=== PATIENT | female | born 1950 | race Caucasian/White ===

== ENCOUNTER → 2016-07-13 | Outpatient (CLI) | payer MEDICARE, BC ==
[~2016-07-13] MED LIST: DENOSUMAB 60 MG/ML 1 ML SYRINGE SQ ONE
[2016-07-13 14:54] VITALS: BP 135/60; PULSE 94; RESP 16; TEMP 98.3
== END | disposition home or self-care (01) ==
LOC: PROCWHC3 13:59
PROVIDERS: ATTEND Internal Medicine Geriatric Medicine
DX: M81.0 Age-related osteoporosis without current pathological fracture (principal)
CPT/HCPCS: 96372; J0897

== ENCOUNTER → 2016-09-03 | Outpatient (CLI) | payer MEDICARE, BC ==
--- NOTE | 2016-09-04 08:05 | MM ---
Reason for exam: screening (asymptomatic). Last mammogram was performed 2 years ago. History: Patient is postmenopausal. Took estrogen for 1 year 8 months. Physical Findings: A clinical breast exam by your physician is recommended on an annual basis and results should be correlated with mammographic findings. MG 3D Screening Mammo W/Cad Bilateral CC and MLO view(s) were taken. Prior study comparison: August 20, 2014, bilateral MG screening mammo w CAD. July 26, 2013, bilateral digital screening mammo w/CAD. There are scattered fibroglandular densities. There is no discrete abnormality including area of concern. No significant changes when compared with prior studies. ASSESSMENT: Negative, BI-RAD 1 RECOMMENDATION: Routine screening mammogram of both breasts in 1 year.
== END | disposition home or self-care (01) ==
LOC: RADMAMWWP 10:59
PROVIDERS: ATTEND Obstetrics & Gynecology
DX: Z12.31 Encounter for screening mammogram for malignant neoplasm of breast (principal)
CPT/HCPCS: 77063; G0202

== ENCOUNTER → 2016-10-14 | Outpatient (CLI) | payer MEDICARE, BC ==
--- NOTE | 2016-10-14 17:25 | BD ---
EXAMINATION TYPE: MG DEXA axial skeleton. DATE OF EXAM: 10/14/2016 9:42 AM COMPARISON: NONE CLINICAL HISTORY: 66-year-old female disorder bone, postmenopausal screening Height: 5 FT Weight: 142 FRAX RISK QUESTIONS: Alcohol (3 or more units per day): NO Family History (Parent hip fracture): NO Glucocorticoids (More than 3mos): NO (Ex: prednisone, prednisolone, methylprednisolone, dexamethasone, and hydrocortisone). History of Fracture in Adulthood: NO Secondary Osteoporosis: 1. Type 1 Diabetes: NO 2. Hyperthyroidism: NO 3. Menopause before 45: YES 4. Malnutrition: NO 5. Chronic liver disease: NO Rheumatoid Arthritis: NO Current Tobacco Use: NO RISK FACTORS HISTORY OF: Family History of Osteoporosis: YES Active: YES Postmenopausal woman: AGE 37 MEDICATIONS: Thyroid Medications: YES Which medication: SYNTHROID How Lon YRS Additional Medications: OMEPRAZOLE, ANXIETY MEDS, SYTHROID Additional History: EXAM MEASUREMENTS: Bone mineral densitometry was performed using the [employer] System. Bone mineral density as measured about the Lumbar spine is: ----- L1-L4(G/cm2): 1.003 T Score Values are as follows: ----- L2: -2.6 ----- L3: -2.1 ----- L4: 0.0 ----- L1-L4: -1.5 (L2 and L3 averaged = 2.35) Bone mineral density has: Decreased -1.2% since study of: 2013 Bone mineral density about the R hip (g/cm2): 0.823 Bone mineral density about the L hip (g/cm2): 0.801 T Score values are as follows: -----R Neck: -1.5 -----L Neck: -1.7 -----R Total: -1.1 -----L Total: -1.1 Bone mineral density has: Increased 3.2% since study of: IMPRESSION: Osteopenia as indicated by T score values in the lumbar spine and both hips. There is slightly increased risk of fracture and the patient may be considered for treatment. Re-Screen 2-5 years. NOTE: T-SCORE=SD OF THE YOUNG ADULT MEAN.
== END ==
LOC: RADBDWWP 09:18
PROVIDERS: ATTEND Obstetrics & Gynecology
DX: M85.88 Other specified disorders of bone density and structure, other site (principal); M85.851 Other specified disorders of bone density and structure, right thigh; M85.852 Other specified disorders of bone density and structure, left thigh
CPT/HCPCS: 77080

== ENCOUNTER → 2017-01-11 | Outpatient (CLI) | payer MEDICARE, BC ==
[2017-01-11 11:46] VITALS: BP 130/67; PULSE 78; RESP 15; TEMP 99.1
== END | disposition home or self-care (01) ==
LOC: PROCWHC3 11:27
PROVIDERS: ATTEND Internal Medicine Geriatric Medicine
DX: M81.0 Age-related osteoporosis without current pathological fracture (principal)
CPT/HCPCS: 96372; J0897

== ENCOUNTER 2017-06-18 15:08 | Inpatient (IN) | payer MEDICARE, BC ==
[2017-06-18] MEDS ORDERED: IPRATROPIUM-ALBUTEROL 3 ML NEB INHALATION STA ×2 (16:23→17:59)
[2017-06-18] MEDS ORDERED: methylPREDNISolone SOD SUCCI 125 MG/2 ML VIAL IV STA (16:23)
--- NOTE | 2017-06-18 16:30 | ED ---
General Adult HPI <Antione Blount - Last Filed: 06/18/17 18:11> - General Source: patient, RN notes reviewed Mode of arrival: ambulatory Limitations: no limitations <Valerie Dalal - Last Filed: 06/18/17 18:15> - General Chief complaint: Upper Respiratory Infection Stated complaint: Asthma Time Seen by Provider: 06/18/17 16:17 - History of Present Illness Initial comments: 67-year-old female presents to the emergency department with chief complaint of cough and congestion. Patient suffers from asthma. She states she started to get sick on Wednesday. She has had fevers up to 101 at home. She states she went to Dr. Richard's office on Wednesday it was suspicious and chest x-ray for pneumonia and started her on azithromycin and prednisone. She states that she' s been taking this but she continued to have congestion shortness of breath. Patient states her fevers have continued to remain as well. She went to the office to follow today and she was referred here she states to be admitted. She states she still having the congestion and shortness of breath. Denies any nausea vomiting. She denies any chest pain.Patient denies any recent chest pain , back pain, abdominal pain, nausea vomiting, numbness or tingling, dysuria or hematuria, constipation or diarrhea, headaches or visual changes, or any other current symptoms. (Valerie Dalal) - Related Data Home Medications Medication Instructions Recorded Confirmed Budesonide-Formot 160-4.5 Mcg 2 puff INHALATION RT-BID 04/04/14 06/18/17 [Symbicort 160-4.5 Mcg Inhaler] Omeprazole 20 mg PO DAILY 04/04/14 06/18/17 Sertraline [Zoloft] 100 mg PO DAILY 04/04/14 06/18/17 Levothyroxine Sodium [Synthroid] 100 mcg PO DAILY 11/17/14 06/18/17 Albuterol Sulfate [Proair Hfa] 1 - 2 puff INHALATION RT-QID PRN 12/27/14 Azithromycin [Zithromax Z-pack] See Taper PO DAILY 06/18/17 06/18/17 Ipratropium-Albuterol Nebulize 3 ml INHALATION RT-TID 06/18/17 06/18/17 [Duoneb 0.5 mg-3 mg/3 ml Soln] predniSONE See Taper PO DAILY 06/18/17 06/18/17 Allergies Allergy/AdvReac Type Severity Reaction Status Date / Time ibuprofen AdvReac BLEEDING Verified 06/18/17 16:28 BLOOD THINNERS AdvReac BLEEDING Uncoded 06/18/17 15:22 Review of Systems ROS Other: All systems not noted in ROS Statement are negative. <Antione Blount - Last Filed: 06/18/17 18:11> ROS Other: All systems not noted in ROS Statement are negative. <Valerie Dalal - Last Filed: 06/18/17 18:15> ROS Statement: Those systems with pertinent positive or pertinent negative responses have been documented in the HPI. Past Medical History Past Medical History: Asthma, CVA/TIA, GERD/Reflux, GI Bleed, Musculoskeletal Disorder, Thyroid Disorder Additional Past Medical History / Comment(s): Hereditary hemorrhagic telangiectasia, Iron deficiency anemia, TIAs per MRIs, GI bleeds, restless leg syndrome History of Any Multi-Drug Resistant Organisms: None Reported Past Surgical History: Orthopedic Surgery Additional Past Surgical History / Comment(s): 11/26/15 acromioplasty excision distal clavical rotator cuff repair R shoulder. Other surgical HX: PH study esophageal impendance function test, bilateral cataract removals, EGD, bone spurs sg in feet/hands, coiling of the pulmonary AV malformation Past Anesthesia/Blood Transfusion Reactions: No Reported Reaction Past Psychological History: Anxiety Smoking Status: Former smoker Past Alcohol Use History: None Reported Past Drug Use History: None Reported - Past Family History Mother Additional Family Medical History / Comment(s): Mother is 92 yrs old. She has vision problem. Father Family Medical History: Coronary Artery Disease (CAD), Diabetes Mellitus Additional Family Medical History / Comment(s): Father at 66 yrs Sister(s) Family Medical History: Blood Disorder Additional Family Medical History / Comment(s): Hemorrhagic Telangiectasia <Valerie Dalal - Last Filed: 06/18/17 18:15> General Exam <Antione Blount - Last Filed: 06/18/17 18:11> Limitations: no limitations <Valerie Dalal - Last Filed: 06/18/17 18:15> - General Exam Comments Initial Comments: General: The patient is awake and alert, in no distress, and does not appear acutely ill. Eye: Pupils are equal, round and reactive to light, extra-ocular movements are intact; there is normal conjunctiva bilaterally. No signs of icterus. Ears, nose, mouth and throat: There are moist mucous membranes and no oral lesions. Neck: The neck is supple, there is no tenderness. Cardiovascular: There is a regular rate and rhythm. No murmur, rub or gallop is appreciated. Respiratory: Lungs are clear to auscultation, respirations are non-labored, breath sounds are equal. Mild expiratory wheeze, no stridor, rales, or rhonchi. Gastrointestinal: Soft, non-distended, non-tender abdomen without masses or organomegaly noted. There is no rebound or guarding present. No CVA tenderness. Bowel sounds are unremarkable. Back: There is no tenderness to palpation in the midline. There is no obvious deformity. No rashes noted. Musculoskeletal: Normal ROM, no tenderness, There is no pedal edema. There is no calf tenderness or swelling. Sensation intact. Pulses equal bilaterally 2+. Neurological: CN II-XII intact, There are no obvious motor or sensory deficits. Coordination appears grossly intact. Speech is normal. Skin: Skin is warm and dry and no rashes or lesions are noted. Psychiatric: Cooperative, appropriate mood & affect, normal judgment. (Valerie Dalal) Vital Signs 06/18/17 06/18/17 06/18/17 15:17 16:44 16:52 Temperature 98.4 F Pulse Rate 83 93 93 Respiratory 16 Rate Blood Pressure 142/74 O2 Sat by Pulse 96 Oximetry 06/18/17 18:09 Temperature Pulse Rate 92 Respiratory Rate Blood Pressure O2 Sat by Pulse Oximetry Medical Decision Making - Lab Data Result diagrams: 06/18/17 16:56 06/18/17 16:56 <Antione Blount - Last Filed: 06/18/17 18:11> - Lab Data Result diagrams: 06/18/17 16:56 06/18/17 16:56 <Valerie Dalal - Last Filed: 06/18/17 18:15> - Medical Decision Making Chest x-ray reviewed. Report and chart review. Patient reevaluated by myself, Dr. Blount. Patient does have some continued wheezing. Patient states she saw Dr. Curran today who recommended she come to the hospital for admission. States she has been on azithromycin for the past couple of days. Case was discussed in detail with Dr. Ruth, who will admit for Dr. Barlow. Patient does not meet sepsis criteria. (Antione Blount) 67-year-old female presents for cough and congestion with a history of asthma. She is currently been on prednisone and azithromycin out patiently. This and patient's lab work is been reviewed. This tenderness appear to be right lower lobe pneumonia and she's been on antibiotics for the past 2 days with no improvement. This tenderness is continuing to be a minimal wheeze. This time we will admit the patient with IV medication and breathing treatments. As well as steroids. We discussed follow-up return parameters all questions. Patient stated that she understood and she is in agreement this plan. All questions have been answered. The patient will be admitted at this time. (Valerie Dalal) - Lab Data Lab Results 06/18/17 06/18/17 06/18/17 Range/Units 16:56 16:56 16:56 WBC 8.9 (3.8-10.6) k/uL RBC 3.60 L (3.80-5.40) m/uL Hgb 11.4 (11.4-16.0) gm/dL Hct 36.8 (34.0-46.0) % MCV 102.5 H (80.0-100.0) fL MCH 31.6 (25.0-35.0) pg MCHC 30.9 L (31.0-37.0) g/dL RDW 14.0 (11.5-15.5) % Plt Count 421 (150-450) k/uL Neutrophils % 90 % Lymphocytes % 6 % Monocytes % 1 % Eosinophils % 0 % Basophils % 0 % Neutrophils # 8.1 H (1.3-7.7) k/uL Lymphocytes # 0.5 L (1.0-4.8) k/uL Monocytes # 0.1 (0-1.0) k/uL Eosinophils # 0.0 (0-0.7) k/uL Basophils # 0.0 (0-0.2) k/uL Hypochromasia Slight Macrocytosis Slight PT (9.0-12.0) sec INR (<1.2) APTT (22.0-30.0) sec Sodium 140 (137-145) mmol/L Potassium 4.6 (3.5-5.1) mmol/L Chloride 107 (98-107) mmol/L Carbon Dioxide 23 (22-30) mmol/L Anion Gap 10 mmol/L BUN 15 (7-17) mg/dL Creatinine 0.60 (0.52-1.04) mg/dL Est GFR (MDRD) Af Amer >60 (>60 ml/min/1.73 sqM) Est GFR (MDRD) Non-Af >60 (>60 ml/min/1.73 sqM) Glucose 119 H (74-99) mg/dL Plasma Lactic Acid Montrell (0.7-2.0) mmol/L Calcium 9.5 (8.4-10.2) mg/dL Total Bilirubin 0.2 (0.2-1.3) mg/dL AST 24 (14-36) U/L ALT 38 (9-52) U/L Alkaline Phosphatase 65 (38-126) U/L Total Protein 7.0 (6.3-8.2) g/dL Albumin 4.2 (3.5-5.0) g/dL Influenza Type A RNA Not Detected (Not Detectd) Influenza Type B (PCR) Not Detected (Not Detectd) 06/18/17 06/18/17 Range/Units 16:56 16:56 WBC (3.8-10.6) k/uL RBC (3.80-5.40) m/uL Hgb (11.4-16.0) gm/dL Hct (34.0-46.0) % MCV (80.0-100.0) fL MCH (25.0-35.0) pg MCHC (31.0-37.0) g/dL RDW (11.5-15.5) % Plt Count (150-450) k/uL Neutrophils % % Lymphocytes % % Monocytes % % Eosinophils % % Basophils % % Neutrophils # (1.3-7.7) k/uL Lymphocytes # (1.0-4.8) k/uL Monocytes # (0-1.0) k/uL Eosinophils # (0-0.7) k/uL Basophils # (0-0.2) k/uL Hypochromasia Macrocytosis PT 10.2 (9.0-12.0) sec INR 1.0 (<1.2) APTT 23.8 (22.0-30.0) sec Sodium (137-145) mmol/L Potassium (3.5-5.1) mmol/L Chloride (98-107) mmol/L Carbon Dioxide (22-30) mmol/L Anion Gap mmol/L BUN (7-17) mg/dL Creatinine (0.52-1.04) mg/dL Est GFR (MDRD) Af Amer (>60 ml/min/1.73 sqM) Est GFR (MDRD) Non-Af (>60 ml/min/1.73 sqM) Glucose (74-99) mg/dL Plasma Lactic Acid Montrell 0.9 (0.7-2.0) mmol/L Calcium (8.4-10.2) mg/dL Total Bilirubin (0.2-1.3) mg/dL AST (14-36) U/L ALT (9-52) U/L Alkaline Phosphatase (38-126) U/L Total Protein (6.3-8.2) g/dL Albumin (3.5-5.0) g/dL Influenza Type A RNA (Not Detectd) Influenza Type B (PCR) (Not Detectd) Disposition <Antione Blount - Last Filed: 06/18/17 18:11> Decision Date: 06/18/17 Decision Time: 18:15 <Valerie Dalal - Last Filed: 06/18/17 18:15> Clinical Impression: Asthma exacerbation, Right lower lobe pneumonia, Failure of outpatient treatment Disposition: ADMITTED IP TO THIS HOSP Condition: Stable Referrals: Shukri Barlow MD [Primary Care Provider] - 1-2 days
[2017-06-18 17:14] LABS: Basophils % (A) 0 %; Eosinophils % (A) 0 %; HCT 36.8 % (34.0-46.0); HGB 11.4 gm/dL (11.4-16.0); Hypochromasia Slight; Lymphocytes # (A) 0.5 k/uL (1.0-4.8); Lymphocytes % (A) 6 %; MCH 31.6 pg (25.0-35.0); MCHC 30.9 g/dL (31.0-37.0); MCV 102.5 fL (80.0-100.0); Macrocytosis Slight; Mean Platelet Volume 7.8; Monocytes # (A) 0.1 k/uL (0-1.0); Monocytes % (A) 1 %; Neutrophils # (A) 8.1 k/uL (1.3-7.7); Neutrophils % (A) 90 %; Platelet Count 421 k/uL (150-450); WBC 8.9 k/uL (3.8-10.6)
[2017-06-18 17:25] LABS: ALT 38 U/L (9-52); AST 24 U/L (14-36); Albumin 4.2 g/dL (3.5-5.0); Alkaline Phosphatase 65 U/L (38-126); Anion Gap 10 mmol/L; Blood Urea Nitrogen 15 mg/dL (7-17); Calcium 9.5 mg/dL (8.4-10.2); Carbon Dioxide 23 mmol/L (22-30); Chloride 107 mmol/L (98-107); Glucose 119 mg/dL (74-99); Potassium 4.6 mmol/L (3.5-5.1); Sodium 140 mmol/L (137-145); Total Bilirubin 0.2 mg/dL (0.2-1.3)
[2017-06-18 17:33] LABS: Partial Thromboplastin Time 23.8 sec (22.0-30.0); Prothrombin Time 10.2 sec (9.0-12.0)
--- NOTE | 2017-06-18 17:46 | XR ---
EXAMINATION TYPE: XR chest 2V DATE OF EXAM: 06/18/2017 COMPARISON: EXAMINATION TYPE: XR chest 2V DATE OF EXAM: 06/18/2017 COMPARISON: NONE HISTORY: Cough and congestion TECHNIQUE: 2 views FINDINGS: Heart appears enlarged. There is no gross heart failure. There is some infiltrate in the ri ght lower lobe. The other lung monique are fairly clear. Costophrenic angles are clear. Bony thorax is intact. IMPRESSION: There is some right lower lobe pneumonia. No gross heart failure. HISTORY: TECHNIQUE: Frontal and lateral views of the chest are obtained. FINDINGS: There is no focal air space opacity, pleural effusion, or pneumothorax seen. The cardiac silhouette size is within normal limits. The osseous structures are intact. IMPRESSION: No acute cardiopulmonary process.
[2017-06-18] MEDS ORDERED: PNEUMONIA PROTOCOL UTILIZED 1 EACH MISC PO PRN (18:15)
[2017-06-18] MEDS ORDERED: LEVOFLOXACIN 750MG-D5W PMX 750 MG in DEXTROSE/WATER 1 150ML.BAG IVPB STA (18:15)
[2017-06-18] MEDS: SYMBICORT 160-4.5 MCG INHALER INHALATION SCH (19:19)
[2017-06-18] MEDS: SODIUM CHLORIDE 0.9% 1,000 ML IV SCH (19:24)
[2017-06-18] MEDS: IPRATROPIUM-ALBUTEROL 3 ML NEB INHALATION PRN (20:09)
[2017-06-18 22:27] VITALS: BMI 27.3
[2017-06-19] MEDS: methylPREDNISolone SOD SUCCI 125 MG/2 ML VIAL IV SCH ×4 (00:06→18:35)
[2017-06-19 00:09] LABS: Iron Saturation 9.17 (12.00-45.00)
[2017-06-19] MEDS: SODIUM CHLORIDE 0.9% 1,000 ML IV SCH ×2 (04:51→18:44)
[2017-06-19] MEDS: IPRATROPIUM-ALBUTEROL 3 ML NEB INHALATION PRN (05:23)
[2017-06-19] MEDS: LEVOTHYROXINE 100 MCG TAB PO SCH (06:19)
[2017-06-19] MEDS: PANTOPRAZOLE 40 MG TABLET PO SCH (07:23)
[2017-06-19] MEDS: IPRATROPIUM-ALBUTEROL 3 ML NEB INHALATION SCH ×3 (09:19→18:43)
[2017-06-19] MEDS: SYMBICORT 160-4.5 MCG INHALER INHALATION SCH ×2 (09:19→18:43)
--- NOTE | 2017-06-19 09:56 | XR ---
EXAMINATION TYPE: XR chest 2V DATE OF EXAM: 06/19/2017 HISTORY: pneumonia. REFERENCE: Previous study dated 06/18/2017. FINDINGS: The lungs are overinflated. Heart size upper limits of normal. There is improved aeration a t the right lung base. The left lung is clear. IMPRESSION: 1. RESOLVING RIGHT LOWER LOBE PNEUMONIA. 2. COPD. 3. BORDERLINE CARDIOMEGALY.
[2017-06-19] MEDS: SERTRALINE 100 MG TAB PO SCH (10:33)
--- NOTE | 2017-06-19 11:11 | P.HPIM ---
History of Present Illness H&P Date: 06/19/17 Chief Complaint: shortness of breath this is 67 years old female with past medical history significant for asthma presents to the hospital from her pulmonary doctor's office due to worsening shortness breath. Patient started having symptoms of upper respiratory infection a few days after dealing with her mother who is an resident of senior living and had flow patient visited her pupil personnel services director office on Wednesday prescribed Z-Lamin and Medrol Dosepak patient received 1 dose of steroids intramuscular and IV antibiotics in the office one to home did not have any improvement and reported to her doctor's office on Wednesday who referred her to the emergency department chest x-ray showed right lower lung pneumonia and patient was admitted for treatment failure on outpatient basis. Patient oxygen was above 90% on room air in the ER the patient was using accessory muscles and in [id number] distress and admitted to the medical floor when pulmonary consult was placed. Patient currently is denying chest pain, nausea vomiting, abdominal pain, dizziness, lightheadedness or dysuria. Patient stated that she smoked only 2 years as a teenager and was diagnosed with asthma greater than 12 years ago and has been using Symbicort twice daily along with breathing treatment 3 times daily and rescue inhaler as needed for long-time. Patient stated that she gets this exacerbation at least once a year and sometimes requires hospitalization Review of Systems all 14 systems reviewed and negative except as above Past Medical History Past Medical History: Asthma, CVA/TIA, GERD/Reflux, GI Bleed, Musculoskeletal Disorder, Thyroid Disorder Additional Past Medical History / Comment(s): Hereditary hemorrhagic telangiectasia, Iron deficiency anemia, TIAs per MRIs, GI bleeds, restless leg syndrome History of Any Multi-Drug Resistant Organisms: None Reported Past Surgical History: Orthopedic Surgery Additional Past Surgical History / Comment(s): 11/26/15 acromioplasty excision distal clavical rotator cuff repair R shoulder. Other surgical HX: PH study esophageal impendance function test, bilateral cataract removals, EGD, bone spurs sg in feet/hands, coiling of the pulmonary AV malformation Past Anesthesia/Blood Transfusion Reactions: No Reported Reaction Past Psychological History: Anxiety Smoking Status: Former smoker Past Alcohol Use History: None Reported Past Drug Use History: None Reported - Past Family History Mother Family Medical History: Cancer Additional Family Medical History / Comment(s): Mother is 92 yrs old. She has vision problem. Father Family Medical History: Coronary Artery Disease (CAD), Diabetes Mellitus Additional Family Medical History / Comment(s): Father at 66 yrs Sister(s) Family Medical History: Blood Disorder Additional Family Medical History / Comment(s): Hemorrhagic Telangiectasia Medications and Allergies Home Medications Medication Instructions Recorded Confirmed Type Budesonide-Formot 160-4.5 Mcg 2 puff INHALATION RT-BID 04/04/14 06/18/17 History [Symbicort 160-4.5 Mcg Inhaler] Omeprazole 20 mg PO DAILY 04/04/14 06/18/17 History Sertraline [Zoloft] 100 mg PO DAILY 04/04/14 06/18/17 History Levothyroxine Sodium [Synthroid] 100 mcg PO DAILY 11/17/14 06/18/17 History Albuterol Sulfate [Proair Hfa] 1 - 2 puff INHALATION RT-QID PRN 12/27/14 History Azithromycin [Zithromax Z-pack] See Taper PO DAILY 06/18/17 06/18/17 History Ipratropium-Albuterol Nebulize 3 ml INHALATION RT-TID 06/18/17 06/18/17 History [Duoneb 0.5 mg-3 mg/3 ml Soln] predniSONE See Taper PO DAILY 06/18/17 06/18/17 History Allergies Allergy/AdvReac Type Severity Reaction Status Date / Time ibuprofen AdvReac BLEEDING Verified 06/18/17 22:28 BLOOD THINNERS AdvReac BLEEDING Uncoded 06/18/17 22:28 Physical Exam Vitals: Vital Signs Temp Pulse Pulse Resp BP BP Pulse Ox 06/19/17 09:30 105 H 06/19/17 09:20 105 H 18 96 06/19/17 08:13 98.0 F 95 20 132/67 91 L 06/19/17 06:28 98 F 91 20 136/63 95 06/19/17 05:33 88 06/19/17 05:25 84 06/19/17 00:04 98.2 F 81 18 137/69 93 L 06/19/17 00:00 81 18 06/18/17 22:30 95 20 06/18/17 20:31 92 06/18/17 20:12 96 06/18/17 19:55 97.5 F L 84 20 141/71 93 L 06/18/17 19:06 97.8 F 95 16 143/83 96 06/18/17 18:20 95 06/18/17 18:09 92 06/18/17 18:08 97.5 F L 84 20 141/71 93 L 06/18/17 16:52 93 06/18/17 16:44 93 06/18/17 15:17 98.4 F 83 16 142/74 96 Intake and Output 06/18/17 06/19/17 06/19/17 22:59 06:59 14:59 Intake Total 200 Balance 200 Intake: Oral 200 Other: Voiding Method Toilet Toilet # Voids 2 2 Weight 63.503 kg - Constitutional General appearance: average body habitus - EENT Eyes: PERRLA ENT: normal oropharynx - Neck Neck: normal ROM - Respiratory Respiratory: bilateral: rhonchi, wheezing, prolonged expiration - Cardiovascular Heart sounds: normal: S1, S2 - Gastrointestinal General gastrointestinal: normal bowel sounds, soft - Integumentary Integumentary: normal - Neurologic Neurologic: CNII-XII intact - Musculoskeletal Musculoskeletal: gait normal - Psychiatric Psychiatric: A&O x's 3 Results CBC & Chem 7: 06/18/17 16:56 06/18/17 16:56 Labs: Abnormal Lab Results - Last 24 Hours (Table) 06/18/17 06/18/17 06/18/17 Range/Units 16:56 16:56 16:56 RBC 3.60 L (3.80-5.40) m/uL MCV 102.5 H (80.0-100.0) fL MCHC 30.9 L (31.0-37.0) g/dL Neutrophils # 8.1 H (1.3-7.7) k/uL Lymphocytes # 0.5 L (1.0-4.8) k/uL Glucose 119 H (74-99) mg/dL Iron 31 L (50-170) ug/dL Iron Saturation 9.17 L (12.00-45.00) Thrombosis Risk Factor Assmnt - DVT/VTE Prophylaxis DVT/VTE Prophylaxis: Contraindicated - See note (pt refused) - Choose All That Apply Any of the Below Risk Factors Present?: Yes Other Risk Factors: Yes Each Risk Factor Represents 2 Points: Age 61-74 years Other congenital or acquired thrombophilia - If yes, enter type in comment: No Thrombosis Risk Factor Assessment Total Risk Factor Score: 2 Thrombosis Risk Factor Assessment Level: Low Risk Assessment and Plan Assessment: 1. Asthma exacerbation. 2. Right lower lobe pneumonia. 3. Hypothyroidism. 4. Anxiety and depression. 5. Hereditary hemorrhagic telangiectasia HHT. We'll start patients on Levaquin IV infusion along with IV steroids and aggressive breathing treatment check on sputum culture and follow-up on vital signs closely consult was placed for pulmonary and I discussed the case with pulmonary at the bedside. Patient refused DVT prophylaxis due to #5 and she understands the risk and benefit Will encourage ambulation follow-up on patient' s closely during this hospital stay and repeat blood work in the morning.
--- NOTE | 2017-06-19 13:30 | P.CNPUL ---
History of Present Illness Consult date: 06/19/17 Reason for consult: dyspnea, asthma History of present illness: 67-year-old female patient, known history of bronchial asthma, known history of hemorrhagic hereditary telangiectasia, who was treated in our office for a right lower lobe pneumonia. The treatment was offered to her recent inpatient completed with a course of Zithromax. However her condition wasn't improving. The patient was seen again in the office and she was admitted to the hospital for IV antibiotic treatment. She was having increased chest congestion chest tightness and wheezing and she was getting progressively more short of breath and there was concern that the patient was failing treatment. For that reason the patient was admitted to the hospital and the patient was started on a combination of antibiotics. On today's evaluation she is feeling better. Repeat chest x-ray from today shows improvement in the right lower lobe pulmonary infiltrates. No hemoptysis. No pleurisy. No change in mental status. No recurrences. Infectious. Influenza screen is been negative. The patient has not had any other complaints. She has mild chronic iron deficiency anemia related to her age HHT Review of Systems Constitutional: Reports fever, Reports weakness Eyes: denies blurred vision, denies bulging eye, denies decreased vision Ears: deny: decreased hearing, ear discharge, earache Ears, nose, mouth and throat: Reports epistaxis Cardiovascular: Reports decreased exercise tolerance, Denies chest pain, Denies shortness of breath Respiratory: Reports cough, Reports dyspnea, Reports wheezing Gastrointestinal: Denies abdominal pain, Denies diarrhea, Denies nausea, Denies vomiting Genitourinary: Denies dysuria, Denies hematuria Musculoskeletal: Reports as per HPI Musculoskeletal: absent: ankle pain, ankle stiffness, ankle swelling Integumentary: Reports as per HPI Neurological: Denies numbness, Denies weakness Psychiatric: Reports as per HPI Endocrine: Denies fatigue, Denies weight change Past Medical History Past Medical History: Asthma, CVA/TIA, GERD/Reflux, GI Bleed, Musculoskeletal Disorder, Thyroid Disorder Additional Past Medical History / Comment(s): Hereditary hemorrhagic telangiectasia, Iron deficiency anemia, TIAs per MRIs, GI bleeds, restless leg syndrome History of Any Multi-Drug Resistant Organisms: None Reported Past Surgical History: Orthopedic Surgery Additional Past Surgical History / Comment(s): 11/26/15 acromioplasty excision distal clavical rotator cuff repair R shoulder. Other surgical HX: PH study esophageal impendance function test, bilateral cataract removals, EGD, bone spurs sg in feet/hands, coiling of the pulmonary AV malformation Past Anesthesia/Blood Transfusion Reactions: No Reported Reaction Past Psychological History: Anxiety Smoking Status: Former smoker Past Alcohol Use History: None Reported Past Drug Use History: None Reported - Past Family History Mother Family Medical History: Cancer Additional Family Medical History / Comment(s): Mother is 92 yrs old. She has vision problem. Father Family Medical History: Coronary Artery Disease (CAD), Diabetes Mellitus Additional Family Medical History / Comment(s): Father at 66 yrs Sister(s) Family Medical History: Blood Disorder Additional Family Medical History / Comment(s): Hemorrhagic Telangiectasia Medications and Allergies Home Medications Medication Instructions Recorded Confirmed Type Budesonide-Formot 160-4.5 Mcg 2 puff INHALATION RT-BID 04/04/14 06/18/17 History [Symbicort 160-4.5 Mcg Inhaler] Omeprazole 20 mg PO DAILY 04/04/14 06/18/17 History Sertraline [Zoloft] 100 mg PO DAILY 04/04/14 06/18/17 History Levothyroxine Sodium [Synthroid] 100 mcg PO DAILY 11/17/14 06/18/17 History Albuterol Sulfate [Proair Hfa] 1 - 2 puff INHALATION RT-QID PRN 12/27/14 History Azithromycin [Zithromax Z-pack] See Taper PO DAILY 06/18/17 06/18/17 History Ipratropium-Albuterol Nebulize 3 ml INHALATION RT-TID 06/18/17 06/18/17 History [Duoneb 0.5 mg-3 mg/3 ml Soln] predniSONE See Taper PO DAILY 06/18/17 06/18/17 History Allergies Allergy/AdvReac Type Severity Reaction Status Date / Time ibuprofen AdvReac BLEEDING Verified 06/18/17 22:28 BLOOD THINNERS AdvReac BLEEDING Uncoded 06/18/17 22:28 Physical Exam Vitals: Vital Signs Temp Pulse Pulse Resp BP BP Pulse Ox 06/19/17 13:17 95 06/19/17 13:07 94 18 06/19/17 11:51 98.1 F 115 H 20 164/82 93 L 06/19/17 09:30 105 H 06/19/17 09:20 105 H 18 96 06/19/17 08:13 98.0 F 95 20 132/67 91 L 06/19/17 06:28 98 F 91 20 136/63 95 06/19/17 05:33 88 06/19/17 05:25 84 06/19/17 00:04 98.2 F 81 18 137/69 93 L 06/19/17 00:00 81 18 06/18/17 22:30 95 20 06/18/17 20:31 92 06/18/17 20:12 96 06/18/17 19:55 97.5 F L 84 20 141/71 93 L 06/18/17 19:06 97.8 F 95 16 143/83 96 06/18/17 18:20 95 06/18/17 18:09 92 06/18/17 18:08 97.5 F L 84 20 141/71 93 L 06/18/17 16:52 93 06/18/17 16:44 93 06/18/17 15:17 98.4 F 83 16 142/74 96 Intake and Output 06/18/17 06/19/17 06/19/17 22:59 06:59 14:59 Intake Total 200 Balance 200 Intake: Oral 200 Other: Voiding Method Toilet Toilet # Voids 2 2 Weight 63.503 kg General appearance: average body habitus - EENT Eyes: PERRLA ENT: normal oropharynx - Neck Neck: normal ROM - Respiratory Respiratory: bilateral: rhonchi, wheezing, prolonged expiration - Cardiovascular Heart sounds: normal: S1, S2 - Gastrointestinal General gastrointestinal: normal bowel sounds, soft - Integumentary Integumentary: normal - Neurologic Neurologic: CNII-XII intact - Musculoskeletal Musculoskeletal: gait normal - Psychiatric Psychiatric: A&O x's 3 Results - Laboratory Findings CBC and BMP: 06/18/17 16:56 06/18/17 16:56 PT/INR, D-dimer PT 10.2 sec (9.0-12.0) 06/18/17 16:56 INR 1.0 (<1.2) 06/18/17 16:56 Abnormal lab findings: Abnormal Labs 06/18/17 06/18/17 06/18/17 16:56 16:56 16:56 RBC 3.60 L MCV 102.5 H MCHC 30.9 L Neutrophils # 8.1 H Lymphocytes # 0.5 L Glucose 119 H Iron 31 L Iron Saturation 9.17 L - Diagnostic Findings Chest x-ray: image reviewed Assessment and Plan Plan: Assessment 1 acute a right lower lobe pneumonia, improving and today's chest x-ray shows improvement in the right lower lobe pulmonary infiltrate 2 acute bronchial asthma secondary to above, improving 3 hemorrhagic hereditary telangiectasia 4 chronic iron deficiency anemia 5 hypothyroidism 6 depression/anxiety Plan Continue IV Levaquin. Continue bronchodilators. Continue systemic steroids. Consider giving this patient IV iron. Continue bronchodilators. Possible discharge in a.m.
[2017-06-19 16:36] LABS: Glucose,Whole Blood 122 mg/dL (75-99)
[2017-06-19] MEDS: LEVOFLOXACIN 750MG-D5W PMX 750 MG in DEXTROSE/WATER 1 150ML.BAG IVPB SCH (18:45)
[2017-06-19] MEDS ORDERED: LEVOFLOXACIN 750 MG TAB PO SCH (19:00)
[2017-06-19 20:54] LABS: Glucose,Whole Blood 124 mg/dL (75-99)
[2017-06-19] MEDS: diphenhydrAMINE 25 MG CAP PO PRN (22:34)
[2017-06-20] MEDS: methylPREDNISolone SOD SUCCI 125 MG/2 ML VIAL IV SCH ×4 (00:24→18:47)
[2017-06-20] MEDS: IPRATROPIUM-ALBUTEROL 3 ML NEB INHALATION PRN ×2 (03:00→16:00)
[2017-06-20] MEDS: LEVOTHYROXINE 100 MCG TAB PO SCH (06:25)
[2017-06-20 07:23] LABS: Glucose,Whole Blood 113 mg/dL (75-99)
[2017-06-20] MEDS: PANTOPRAZOLE 40 MG TABLET PO SCH (08:19)
[2017-06-20] MEDS: SERTRALINE 100 MG TAB PO SCH (08:19)
[2017-06-20] MEDS: SODIUM CHLORIDE 0.9% 1,000 ML IV SCH (08:22)
[2017-06-20] MEDS: SYMBICORT 160-4.5 MCG INHALER INHALATION SCH ×2 (08:31→21:19)
[2017-06-20] MEDS: IPRATROPIUM-ALBUTEROL 3 ML NEB INHALATION SCH ×3 (08:31→21:19)
[2017-06-20 12:20] LABS: Glucose,Whole Blood 108 mg/dL (75-99)
--- NOTE | 2017-06-20 13:50 | P.PN ---
Subjective Progress Note Date: 06/20/17 67-year-old female patient, known history of bronchial asthma, known history of hemorrhagic hereditary telangiectasia, who was treated in our office for a right lower lobe pneumonia. The treatment was offered to her recent inpatient completed with a course of Zithromax. However her condition wasn't improving. The patient was seen again in the office and she was admitted to the hospital for IV antibiotic treatment. She was having increased chest congestion chest tightness and wheezing and she was getting progressively more short of breath and there was concern that the patient was failing treatment. For that reason the patient was admitted to the hospital and the patient was started on a combination of antibiotics. On today's evaluation she is feeling better. Repeat chest x-ray from today shows improvement in the right lower lobe pulmonary infiltrates. No hemoptysis. No pleurisy. No change in mental status. No recurrences. Infectious. Influenza screen is been negative. The patient has not had any other complaints. She has mild chronic iron deficiency anemia related to her age HHT On 06/20/2017 the patient is being seen for a follow-up. Doing better. Less short of breath. Last bronchus spastic and wheezy. Chest x-ray was reviewed from yesterday shows improvement of the right lower lobe pulmonary for today/ pneumonia. The patient is still having some increased shortness of breath with activities. She remains somewhat bronchospastic and wheezy. We decided to continue IV antibiotics and IV steroids for another 24 hours. No other new complaints for now. Influenza screen was negative. Objective - Vital Signs Vital signs: Vital Signs Temp 97.9 F 06/20/17 11:40 Pulse 100 06/20/17 12:23 Resp 19 06/20/17 11:40 BP 158/69 06/20/17 11:40 Pulse Ox 92 L 06/20/17 11:40 Intake & Output 06/19/17 06/20/17 06/20/17 18:59 06:59 18:59 Intake Total 240 Balance 240 Intake: Oral 240 Other: Voiding Method Toilet # Voids 2 1 - Exam General appearance: average body habitus - EENT Eyes: PERRLA ENT: normal oropharynx - Neck Neck: normal ROM - Respiratory Respiratory: bilateral: rhonchi, wheezing, prolonged expiration - Cardiovascular Heart sounds: normal: S1, S2 - Gastrointestinal General gastrointestinal: normal bowel sounds, soft - Integumentary Integumentary: normal - Neurologic Neurologic: CNII-XII intact - Musculoskeletal Musculoskeletal: gait normal - Psychiatric Psychiatric: A&O x's 3 - Labs CBC & Chem 7: 06/18/17 16:56 06/18/17 16:56 Labs: Abnormal Lab Results - Last 24 Hours (Table) 06/19/17 06/19/17 06/20/17 Range/Units 16:27 20:51 07:21 POC Glucose (mg/dL) 122 H 124 H 113 H (75-99) mg/dL 06/20/17 Range/Units 12:18 POC Glucose (mg/dL) 108 H (75-99) mg/dL Microbiology - Last 24 Hours (Table) 06/19/17 09:47 Gram Stain - Preliminary Sputum Sputum Culture - Preliminary 06/18/17 16:56 Blood Culture - Preliminary Blood No Growth after 24 hours Assessment and Plan Plan: Assessment 1 acute a right lower lobe pneumonia, improving and today's chest x-ray shows improvement in the right lower lobe pulmonary infiltrate 2 acute bronchial asthma secondary to above, improving 3 hemorrhagic hereditary telangiectasia 4 chronic iron deficiency anemia 5 hypothyroidism 6 depression/anxiety Plan Continue IV Levaquin. Continue bronchodilators. Patient is still having some shortness of breath.Further improvement within next 24 hours. Continue same treatment. Continue systemic steroids for another 24 hours. Will follow.
--- NOTE | 2017-06-20 15:47 | P.PN ---
Subjective Progress Note Date: 06/20/17 Patient continued to be hemodynamically stable stated that she was up ambulating in the loo all day today but getting winded with short distance. Patient is trying to spend most of her day in chair as she is not taking DVT prophylaxis and aware with the side effects but she is still adamant about DVT prophylaxis. The patient feels slightly improved from yesterday as she is at least 25% better but not [place] 50% at this point Objective - Vital Signs Vital signs: Vital Signs Temp 97.9 F 06/20/17 11:40 Pulse 100 06/20/17 12:23 Resp 19 06/20/17 11:40 BP 158/69 06/20/17 11:40 Pulse Ox 92 L 06/20/17 11:40 Intake & Output 06/19/17 06/20/17 06/20/17 18:59 06:59 18:59 Intake Total 240 Balance 240 Intake: Oral 240 Other: Voiding Method Toilet # Voids 2 1 - Exam Lungs positive for scattered rhonchi and end expiratory wheezing Heart normal S1-S2 Abdomen soft no tenderness Prost [facility] for quadrant Skin no new rash Psych alert and oriented 3 - Labs CBC & Chem 7: 06/18/17 16:56 06/18/17 16:56 Labs: Abnormal Lab Results - Last 24 Hours (Table) 06/19/17 06/19/17 06/20/17 Range/Units 16:27 20:51 07:21 POC Glucose (mg/dL) 122 H 124 H 113 H (75-99) mg/dL 06/20/17 Range/Units 12:18 POC Glucose (mg/dL) 108 H (75-99) mg/dL Microbiology - Last 24 Hours (Table) 06/19/17 09:47 Gram Stain - Preliminary Sputum Sputum Culture - Preliminary 06/18/17 16:56 Blood Culture - Preliminary Blood No Growth after 24 hours Assessment and Plan Assessment: 1. Asthma exacerbation. 2. Right lower lobe pneumonia. 3. Hypothyroidism. 4. Anxiety and depression. 5. Hereditary hemorrhagic telangiectasia HHT. Patient is responding to conventional treatment with IV steroids and IV antibiotics plan discussed with pulmonary regarding treatment plan and we both agreed to continue weaning off started steroids switched to oral medication once patient is at least 50% improved and consider discharging home at that point. Patient requested iron IV to be infused as she scheduled to have it tomorrow and I ordered Venofer 200 mg 1 discussed with the nursing staff. Patient refused DVT prophylaxis due to #5 and she understands the risk and benefit Will encourage ambulation follow-up on patient's closely during this hospital stay and repeat blood work in the morning.
[2017-06-20 16:55] LABS: Glucose,Whole Blood 162 mg/dL (75-99)
[2017-06-20] MEDS: INSULIN ASPART 100 UNIT/ML 1 ML 10 ML VIAL SQ PRN (16:58)
[2017-06-20] MEDS: SODIUM FERRIC GLUCONAT-SUCROSE 125 MG in SODIUM CHLORIDE 0.9% 100 ML IVPB SCH (17:21)
[2017-06-20] MEDS: LEVOFLOXACIN 750MG-D5W PMX 750 MG in DEXTROSE/WATER 1 150ML.BAG IVPB SCH (19:08)
[2017-06-20 21:31] LABS: Glucose,Whole Blood 119 mg/dL (75-99)
[2017-06-20] MEDS: diphenhydrAMINE 25 MG CAP PO PRN (21:47)
[2017-06-21] MEDS: methylPREDNISolone SOD SUCCI 125 MG/2 ML VIAL IV SCH ×4 (00:20→18:42)
[2017-06-21] MEDS: SODIUM CHLORIDE 0.9% 1,000 ML IV SCH ×2 (00:22→11:56)
[2017-06-21] MEDS: IPRATROPIUM-ALBUTEROL 3 ML NEB INHALATION PRN ×3 (03:56→23:48)
[2017-06-21] MEDS: LEVOTHYROXINE 100 MCG TAB PO SCH (06:22)
[2017-06-21] MEDS: IPRATROPIUM-ALBUTEROL 3 ML NEB INHALATION SCH ×3 (07:16→19:16)
[2017-06-21] MEDS: SYMBICORT 160-4.5 MCG INHALER INHALATION SCH ×2 (07:17→19:16)
[2017-06-21] MEDS: INSULIN ASPART 100 UNIT/ML 1 ML 10 ML VIAL SQ PRN ×2 (07:20→21:57)
[2017-06-21] MEDS: PANTOPRAZOLE 40 MG TABLET PO SCH (07:20)
[2017-06-21] MEDS: SERTRALINE 100 MG TAB PO SCH (07:20)
[2017-06-21 07:22] LABS: Glucose,Whole Blood 150 mg/dL (75-99)
[2017-06-21 11:08] LABS: Glucose,Whole Blood 101 mg/dL (75-99)
--- NOTE | 2017-06-21 12:04 | P.PN ---
Subjective Progress Note Date: 06/21/17 Principal diagnosis: Acute right lower lobe pneumonia, community-acquired, and acute exacerbation of bronchial asthma. 67-year-old female patient, known history of bronchial asthma, known history of hemorrhagic hereditary telangiectasia, who was treated in our office for a right lower lobe pneumonia. The treatment was offered to her recent inpatient completed with a course of Zithromax. However her condition wasn't improving. The patient was seen again in the office and she was admitted to the hospital for IV antibiotic treatment. She was having increased chest congestion chest tightness and wheezing and she was getting progressively more short of breath and there was concern that the patient was failing treatment. For that reason the patient was admitted to the hospital and the patient was started on a combination of antibiotics. On today's evaluation she is feeling better. Repeat chest x-ray from today shows improvement in the right lower lobe pulmonary infiltrates. No hemoptysis. No pleurisy. No change in mental status. No recurrences. Infectious. Influenza screen is been negative. The patient has not had any other complaints. She has mild chronic iron deficiency anemia related to her age HHT On 06/20/2017 the patient is being seen for a follow-up. Doing better. Less short of breath. Last bronchus spastic and wheezy. Chest x-ray was reviewed from yesterday shows improvement of the right lower lobe pulmonary for today/ pneumonia. The patient is still having some increased shortness of breath with activities. She remains somewhat bronchospastic and wheezy. We decided to continue IV antibiotics and IV steroids for another 24 hours. No other new complaints for now. Influenza screen was negative. Patient was reevaluated today on 06/21/2017, doing much better, but continues to cough and wheeze. Cough is productive with yellow phlegm, chest x-ray on admission showed a right lower lobe pneumonia. Objective - Vital Signs Vital signs: Vital Signs Temp 98.1 F 06/21/17 11:26 Pulse 91 06/21/17 11:26 Resp 20 06/21/17 11:26 BP 160/80 06/21/17 11:26 Pulse Ox 94 L 06/21/17 11:26 Intake & Output 06/20/17 06/21/17 06/21/17 18:59 06:59 18:59 Intake Total 800 Balance 800 Weight 63.503 kg Intake: Oral 800 Other: Voiding Method Toilet # Voids 1 1 # Bowel Movements 1 - Exam Physical Exam: Revealed a 67-year-old female in no distress. HEENT:[Neck is supple.] [No neck masses.] [No thyromegaly.] [No JVD.] Chest: [diffuse rhonchi and wheezes bilaterally, no chest wall tenderness. Cardiac Exam: [Normal S1 and S2, no S3 gallop, no murmur.] Abdomen: [Soft, nontender, no megaly, no rebound, no guarding, normal bowel sounds.] Extremities: [No clubbing, no edema, no cyanosis.] Neurological Exam: [No focal neurologic deficit.] lymphatics: No lymphadenopathy Psychiatric: Normal mood affect and mental status examination. - Labs CBC & Chem 7: 06/18/17 16:56 06/18/17 16:56 Labs: Abnormal Lab Results - Last 24 Hours (Table) 06/20/17 06/20/17 06/20/17 Range/Units 12:18 16:53 21:16 POC Glucose (mg/dL) 108 H 162 H 119 H (75-99) mg/dL 06/21/17 06/21/17 Range/Units 07:12 10:57 POC Glucose (mg/dL) 150 H 101 H (75-99) mg/dL Microbiology - Last 24 Hours (Table) 06/19/17 09:47 Gram Stain - Final Sputum Sputum Culture - Final 06/18/17 16:56 Blood Culture - Preliminary Blood No Growth after 48 hours Assessment and Plan Assessment: 1 acute community-acquired right lower lobe pneumonia, improving and today's chest x-ray shows improvement in the right lower lobe pulmonary infiltrate 2 acute bronchial asthma exacerbation secondary to above, improving 3 hemorrhagic hereditary telangiectasia 4 chronic iron deficiency anemia 5 hypothyroidism 6 depression/anxiety Plan Continue IV Levaquin. Continue bronchodilators. Patient is still having some shortness of breath.Further improvement within next 24 hours. Continue same treatment. Continue systemic steroids for another 24 hours. patient is still wheezing today, not quite ready for discharge planning at this point yet. We' ll continue to follow Time with Patient: Less than 30
[2017-06-21 13:43] LABS: Anion Gap 12 mmol/L; Blood Urea Nitrogen 16 mg/dL (7-17); Calcium 9.4 mg/dL (8.4-10.2); Carbon Dioxide 23 mmol/L (22-30); Chloride 105 mmol/L (98-107); Glucose 189 mg/dL (74-99); Potassium 4.1 mmol/L (3.5-5.1); Sodium 140 mmol/L (137-145)
[2017-06-21 14:09] LABS: Hypochromasia Marked; MCH 30.9 pg (25.0-35.0); MCHC 29.2 g/dL (31.0-37.0); MCV 105.9 fL (80.0-100.0); Macrocytosis Moderate; Mean Platelet Volume 8.7; Platelet Count 467 k/uL (150-450); RBC 3.21 m/uL (3.80-5.40); RDW 15.7 % (11.5-15.5); WBC 19.4 k/uL (3.8-10.6)
[2017-06-21 14:11] LABS: HGB 9.9 gm/dL (11.4-16.0)
[2017-06-21] MEDS: guaiFENesin 600 MG TABLET.ER PO SCH ×2 (15:35→21:58)
[2017-06-21] MEDS: amLODIPine 5 MG TAB PO SCH (15:35)
[2017-06-21 17:09] LABS: Glucose,Whole Blood 119 mg/dL (75-99)
[2017-06-21] MEDS: SODIUM FERRIC GLUCONAT-SUCROSE 125 MG in SODIUM CHLORIDE 0.9% 100 ML IVPB SCH (17:13)
[2017-06-21] MEDS: LEVOFLOXACIN 750MG-D5W PMX 750 MG in DEXTROSE/WATER 1 150ML.BAG IVPB SCH (19:04)
[2017-06-21 21:12] LABS: Glucose,Whole Blood 146 mg/dL (75-99)
[2017-06-22] MEDS: methylPREDNISolone SOD SUCCI 125 MG/2 ML VIAL IV SCH ×4 (00:48→18:30)
[2017-06-22] MEDS: SODIUM CHLORIDE 0.9% 1,000 ML IV SCH ×2 (02:02→15:11)
[2017-06-22] MEDS: PANTOPRAZOLE 40 MG TABLET PO SCH (06:25)
[2017-06-22] MEDS: LEVOTHYROXINE 100 MCG TAB PO SCH (06:25)
[2017-06-22] MEDS: IPRATROPIUM-ALBUTEROL 3 ML NEB INHALATION SCH ×3 (07:05→19:58)
[2017-06-22] MEDS: SYMBICORT 160-4.5 MCG INHALER INHALATION SCH ×2 (07:06→19:58)
[2017-06-22 07:08] LABS: Glucose,Whole Blood 118 mg/dL (75-99)
[2017-06-22] MEDS: SERTRALINE 100 MG TAB PO SCH (08:33)
[2017-06-22] MEDS: amLODIPine 5 MG TAB PO SCH (08:33)
[2017-06-22] MEDS: guaiFENesin 600 MG TABLET.ER PO SCH ×2 (08:34→21:53)
[2017-06-22 10:54] LABS: HGB 9.8 gm/dL (11.4-16.0); Hypochromasia Marked; MCH 31.1 pg (25.0-35.0); MCHC 30.6 g/dL (31.0-37.0); MCV 101.4 fL (80.0-100.0); Macrocytosis Slight; Mean Platelet Volume 8.8; Platelet Count 499 k/uL (150-450); RBC 3.15 m/uL (3.80-5.40); RDW 15.8 % (11.5-15.5); WBC 21.7 k/uL (3.8-10.6)
[2017-06-22 12:06] LABS: Glucose,Whole Blood 109 mg/dL (75-99)
--- NOTE | 2017-06-22 13:51 | P.PN ---
Subjective Progress Note Date: 06/21/17 this is 67 years old female with past medical history significant for asthma presents to the hospital from her pulmonary doctor's office due to worsening shortness breath. 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 Patient oxygen was above 90% on room air in the ER the patient was using accessory muscles and in [id number] distress and admitted to the medical floor when pulmonary consult was placed. Patient currently is denying chest pain, nausea vomiting, abdominal pain, dizziness, lightheadedness or dysuria. Patient stated that she smoked only 2 years as a teenager and was diagnosed with asthma greater than 12 years ago and has been using Symbicort twice daily along with breathing treatment 3 times daily and rescue inhaler as needed for long-time. Patient stated that she gets this exacerbation at least once a year and sometimes requires hospitalization 06/21: Patient continues to have some shortness of breath and wheezing. She is currently on IV Solumedrol 60 mg every 6 hours. Patient complains of tarry stool. Hemoglobin 9.9 and receiving Ferrlecit x 3. Blood pressure elevated and amlodipine added. Objective - Vital Signs Vital signs: Vital Signs Temp 97.9 F 06/21/17 04:00 Pulse 108 H 06/21/17 07:30 Resp 28 H 06/21/17 04:00 BP 160/90 06/21/17 04:00 Pulse Ox 94 L 06/21/17 07:20 Intake & Output 06/20/17 06/21/17 06/21/17 18:59 06:59 18:59 Intake Total 800 Balance 800 Weight 63.503 kg Intake: Oral 800 Other: Voiding Method Toilet # Voids 1 # Bowel Movements 1 - Exam Lungs positive for scattered rhonchi and end expiratory wheezing Heart normal S1-S2 Abdomen soft no tenderness [facility] Skin no new rash Psych alert and oriented 3 - Labs CBC & Chem 7: 06/22/17 10:22 01/08/18 13:17 Labs: Abnormal Lab Results - Last 24 Hours (Table) 06/20/17 06/20/17 06/20/17 Range/Units 12:18 16:53 21:16 POC Glucose (mg/dL) 108 H 162 H 119 H (75-99) mg/dL 06/21/17 Range/Units 07:12 POC Glucose (mg/dL) 150 H (75-99) mg/dL Microbiology - Last 24 Hours (Table) 06/18/17 16:56 Blood Culture - Preliminary Blood No Growth after 48 hours 06/19/17 09:47 Gram Stain - Preliminary Sputum Sputum Culture - Preliminary Assessment and Plan Plan: 1. Asthma exacerbation, severe persistent. Continue DuoNeb treatments, Symbicort, Mucinex, Solu-Medrol. Consult with pulmonary medicine appreciated. 2. Right lower lobe pneumonia. Continue Levaquin. 3. Hypothyroidism. Continue levothyroxine. 4. Generalized anxiety disorder and recurrent depression. Continue Zoloft. 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 Patient is receiving Ferrlecit 3 doses. 6. Patient refused DVT prophylaxis due to #5 7. GI prophylaxis. Protonix. Discharge plan: Return home Impression and plan of care have been directed as dictated by the signing physician. Fabiola Robins nurse practitioner acting as scribe for signing physician.
--- NOTE | 2017-06-22 13:54 | P.PN ---
Subjective Progress Note Date: 06/22/17 this is 67 years old female with past medical history significant for asthma presents to the hospital from her pulmonary doctor's office due to worsening shortness breath. 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 Patient oxygen was above 90% on room air in the ER the patient was using accessory muscles and in [id number] distress and admitted to the medical floor when pulmonary consult was placed. Patient currently is denying chest pain, nausea vomiting, abdominal pain, dizziness, lightheadedness or dysuria. Patient stated that she smoked only 2 years as a teenager and was diagnosed with asthma greater than 12 years ago and has been using Symbicort twice daily along with breathing treatment 3 times daily and rescue inhaler as needed for long-time. Patient stated that she gets this exacerbation at least once a year and sometimes requires hospitalization 06/21: Patient continues to have some shortness of breath and wheezing. She is currently on IV Solumedrol 60 mg every 6 hours. Patient complains of tarry stool. Hemoglobin 9.9 and receiving Ferrlecit x 3. Blood pressure elevated and amlodipine added. 06/22: Repeat hemoglobin is 9.8 with occult blood positive. Patient is scheduled for endoscopy as an outpatient. No plan for transfusion. IV fluids to saline lock. Patient will be started on prednisone tomorrow morning. Sputum is showing normal adalberto. Objective - Vital Signs Vital signs: Vital Signs Temp 97.8 F 06/22/17 11:55 Pulse 92 06/22/17 13:47 Resp 20 06/22/17 11:55 BP 155/77 06/22/17 11:55 Pulse Ox 94 L 06/22/17 11:55 Intake & Output 06/21/17 06/22/17 06/22/17 18:59 06:59 18:59 Intake Total 400 400 Balance 400 400 Intake: Oral 400 400 Other: # Voids 1 1 - Exam Lungs positive for scattered rhonchi and end expiratory wheezing Heart normal S1-S2 Abdomen soft no tenderness Prost [facility] for quadrant Skin no new rash Psych alert and oriented 3 - Labs CBC & Chem 7: 06/22/17 10:22 06/21/17 13:17 Labs: Abnormal Lab Results - Last 24 Hours (Table) 06/21/17 06/21/17 06/21/17 Range/Units 13:17 17:02 20:00 WBC 19.4 H (3.8-10.6) k/uL RBC 3.21 L (3.80-5.40) m/uL Hgb 9.9 L D (11.4-16.0) gm/dL Hct (34.0-46.0) % MCV 105.9 H (80.0-100.0) fL MCHC 29.2 L (31.0-37.0) g/dL RDW 15.7 H (11.5-15.5) % Plt Count 467 H (150-450) k/uL POC Glucose (mg/dL) 119 H (75-99) mg/dL Stool Occult Blood Positive H (Negative) 06/21/17 06/22/17 06/22/17 Range/Units 20:59 07:01 10:22 WBC 21.7 H (3.8-10.6) k/uL RBC 3.15 L (3.80-5.40) m/uL Hgb 9.8 L (11.4-16.0) gm/dL Hct 32.0 L (34.0-46.0) % MCV 101.4 H (80.0-100.0) fL MCHC 30.6 L (31.0-37.0) g/dL RDW 15.8 H (11.5-15.5) % Plt Count 499 H (150-450) k/uL POC Glucose (mg/dL) 146 H 118 H (75-99) mg/dL Stool Occult Blood (Negative) 06/22/17 Range/Units 11:28 WBC (3.8-10.6) k/uL RBC (3.80-5.40) m/uL Hgb (11.4-16.0) gm/dL Hct (34.0-46.0) % MCV (80.0-100.0) fL MCHC (31.0-37.0) g/dL RDW (11.5-15.5) % Plt Count (150-450) k/uL POC Glucose (mg/dL) 109 H (75-99) mg/dL Stool Occult Blood (Negative) Microbiology - Last 24 Hours (Table) 06/18/17 16:56 Blood Culture - Preliminary Blood No Growth after 72 hours 06/19/17 09:47 Gram Stain - Final Sputum Sputum Culture - Final Assessment and Plan Plan: 1. Asthma exacerbation, severe persistent. Continue DuoNeb treatments, Symbicort, Mucinex, Solu-Medrol to prednisone. Consult with pulmonary medicine appreciated. 2. Right lower lobe pneumonia. Continue Levaquin. 3. Hypothyroidism. Continue levothyroxine. 4. Generalized anxiety disorder and recurrent depression. Continue Zoloft. 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 Patient is receiving Ferrlecit 3 doses. 6. Patient refused DVT prophylaxis due to #5 7. GI prophylaxis. Protonix. Discharge plan: Return home Impression and plan of care have been directed as dictated by the signing physician. Fabiola Robins nurse practitioner acting as scribe for signing physician.
--- NOTE | 2017-06-22 14:31 | P.PN ---
Subjective Progress Note Date: 06/22/17 Principal diagnosis: Acute right lower lobe pneumonia, community-acquired, causing acute exacerbation of bronchial asthma. This is a very pleasant 67-year-old female patient, known history of bronchial asthma, known history of hemorrhagic hereditary telangiectasia, who was treated in our office for a right lower lobe pneumonia. The treatment was offered to her recent inpatient completed with a course of Zithromax. However her condition wasn't improving. The patient was seen again in the office and she was admitted to the hospital for IV antibiotic treatment. She was having increased chest congestion chest tightness and wheezing and she was getting progressively more short of breath and there was concern that the patient was failing treatment. For that reason the patient was admitted to the hospital and the patient was started on a combination of antibiotics. On today's evaluation she is feeling better. Repeat chest x-ray from today shows improvement in the right lower lobe pulmonary infiltrates. No hemoptysis. No pleurisy. No change in mental status. No recurrences. Infectious. Influenza screen is been negative. The patient has not had any other complaints. She has mild chronic iron deficiency anemia related to her age HHT. On 06/20/2017 the patient is being seen for a follow-up. Doing better. Less short of breath. Last bronchus spastic and wheezy. Chest x-ray was reviewed from yesterday shows improvement of the right lower lobe pulmonary for today/ pneumonia. The patient is still having some increased shortness of breath with activities. She remains somewhat bronchospastic and wheezy. We decided to continue IV antibiotics and IV steroids for another 24 hours. No other new complaints for now. Influenza screen was negative. Patient was reevaluated today on 06/21/2017, doing much better, but continues to cough and wheeze. Cough is productive with yellow phlegm, chest x-ray on admission showed a right lower lobe pneumonia. The patient is seen again today 06/22/2017 a follow-up on the pediatric unit. She is awake and alert in no acute distress. She's been up ambulating in her room. She is feeling stronger today as compared to yesterday but not quite back to her baseline. She still has some cough and congestions. Still some wheezing. She is continued on DuoNeb inhalations, Symbicort, IV Solu-Medrol. She remains on Levaquin. Her blood and sputum cultures were negative. White count 21.7. Hemoglobin 9.8. Her stool for occult blood was positive. Did receive ferric sodium infusions daily 3. Objective - Vital Signs Vital signs: Vital Signs Temp 97.8 F 06/22/17 11:55 Pulse 92 06/22/17 13:47 Resp 20 06/22/17 11:55 BP 155/77 06/22/17 11:55 Pulse Ox 94 L 06/22/17 11:55 Intake & Output 06/21/17 06/22/17 06/22/17 18:59 06:59 18:59 Intake Total 400 400 Balance 400 400 Intake: Oral 400 400 Other: # Voids 1 1 - Exam GENERAL EXAM: Alert, active, comfortable in no apparent distress. HEAD: Normocephalic. EYES: Normal reaction of pupils, equal size. NOSE: Clear with pink turbinates. THROAT: No erythema or exudates. NECK: No masses, no JVD. CHEST: No chest wall deformity. LUNGS: Equal air entry with bilateral end expiratory wheeze. Faint crackles in the right posterior base. CVS: S1 and S2 normal with no audible murmur, regular rhythm. ABDOMEN: No hepatosplenomegaly, normal bowel sounds, no guarding or rigidity. SPINE: No scoliosis or deformity SKIN: No rashes CENTRAL NERVOUS SYSTEM: No focal deficits, tone is normal in all 4 extremities. EXTREMITIES: There is no peripheral edema. No clubbing, no cyanosis. Peripheral pulses are intact. - Labs CBC & Chem 7: 06/22/17 10:22 06/21/17 13:17 Labs: Abnormal Lab Results - Last 24 Hours (Table) 06/21/17 06/21/17 06/21/17 Range/Units 17:02 20:00 20:59 WBC (3.8-10.6) k/uL RBC (3.80-5.40) m/uL Hgb (11.4-16.0) gm/dL Hct (34.0-46.0) % MCV (80.0-100.0) fL MCHC (31.0-37.0) g/dL RDW (11.5-15.5) % Plt Count (150-450) k/uL POC Glucose (mg/dL) 119 H 146 H (75-99) mg/dL Stool Occult Blood Positive H (Negative) 06/22/17 06/22/17 06/22/17 Range/Units 07:01 10:22 11:28 WBC 21.7 H (3.8-10.6) k/uL RBC 3.15 L (3.80-5.40) m/uL Hgb 9.8 L (11.4-16.0) gm/dL Hct 32.0 L (34.0-46.0) % MCV 101.4 H (80.0-100.0) fL MCHC 30.6 L (31.0-37.0) g/dL RDW 15.8 H (11.5-15.5) % Plt Count 499 H (150-450) k/uL POC Glucose (mg/dL) 118 H 109 H (75-99) mg/dL Stool Occult Blood (Negative) Microbiology - Last 24 Hours (Table) 06/18/17 16:56 Blood Culture - Preliminary Blood No Growth after 72 hours 06/19/17 09:47 Gram Stain - Final Sputum Sputum Culture - Final Assessment and Plan Assessment: Impression: 1 acute community-acquired right lower lobe pneumonia, improving and today's chest x-ray shows improvement in the right lower lobe pulmonary infiltrate 2 acute bronchial asthma exacerbation secondary to above, improving 3 hemorrhagic hereditary telangiectasia 4 chronic iron deficiency anemia 5 hypothyroidism 6 depression/anxiety Plan: The patient was seen and evaluated by Dr. Rm. She is improved today as compared to yesterday. Not quite back to her baseline. We'll continue with her current medications. Plan for possible discharge in the a.m. We'll continue to follow. I, the cosigning physician, have performed a history and physical examination on the patient. Lung sounds bilateral end expiratory wheeze. Crackles in the right posterior base.. Maintaining good O2 saturations in the 90s on room air. I have discussed the assessment and plan of care with my nurse practitioner, Christina Rosales. I attest to the above note as dictated by her.
[2017-06-22 16:59] LABS: Glucose,Whole Blood 100 mg/dL (75-99)
[2017-06-22] MEDS: SODIUM FERRIC GLUCONAT-SUCROSE 125 MG in SODIUM CHLORIDE 0.9% 100 ML IVPB SCH (17:23)
[2017-06-22] MEDS ORDERED: LEVOFLOXACIN 750 MG TAB PO SCH (19:00)
[2017-06-22 21:53] LABS: Glucose,Whole Blood 154 mg/dL (75-99)
[2017-06-22] MEDS: INSULIN ASPART 100 UNIT/ML 1 ML 10 ML VIAL SQ PRN (22:16)
[2017-06-23] MEDS: LEVOTHYROXINE 100 MCG TAB PO SCH (06:26)
[2017-06-23 06:34] LABS: Anisocytosis Slight; HGB 9.3 gm/dL (11.4-16.0); Hypochromasia Marked; MCH 31.2 pg (25.0-35.0); MCV 104.2 fL (80.0-100.0); Macrocytosis Moderate; Mean Platelet Volume 8.7; Platelet Count 450 k/uL (150-450); RBC 2.98 m/uL (3.80-5.40); RDW 16.4 % (11.5-15.5); WBC 18.9 k/uL (3.8-10.6)
[2017-06-23 06:48] LABS: Anion Gap 7 mmol/L; Blood Urea Nitrogen 17 mg/dL (7-17); Calcium 9.4 mg/dL (8.4-10.2); Carbon Dioxide 27 mmol/L (22-30); Chloride 106 mmol/L (98-107); Glucose 93 mg/dL (74-99); Potassium 4.2 mmol/L (3.5-5.1); Sodium 140 mmol/L (137-145)
[2017-06-23 07:12] LABS: Glucose,Whole Blood 91 mg/dL (75-99)
[2017-06-23] MEDS ORDERED: predniSONE 20 MG TAB PO SCH (09:00)
[2017-06-23] MEDS: SYMBICORT 160-4.5 MCG INHALER INHALATION SCH (09:09)
[2017-06-23] MEDS: IPRATROPIUM-ALBUTEROL 3 ML NEB INHALATION SCH ×2 (09:09→12:37)
[2017-06-23] MEDS: SERTRALINE 100 MG TAB PO SCH (09:12)
[2017-06-23] MEDS: amLODIPine 5 MG TAB PO SCH (09:12)
[2017-06-23] MEDS: guaiFENesin 600 MG TABLET.ER PO SCH (09:13)
[2017-06-23 10:17] VITALS: BP 158/65; PULSE 94; RESP 24; TEMP 97.4
--- NOTE | 2017-06-23 11:27 | P.PN ---
Subjective Progress Note Date: 06/23/17 Principal diagnosis: Acute right lower lobe pneumonia, community-acquired, causing acute exacerbation of bronchial asthma. This is a very pleasant 67-year-old female patient, known history of bronchial asthma, known history of hemorrhagic hereditary telangiectasia, who was treated in our office for a right lower lobe pneumonia. The treatment was offered to her recent inpatient completed with a course of Zithromax. However her condition wasn't improving. The patient was seen again in the office and she was admitted to the hospital for IV antibiotic treatment. She was having increased chest congestion chest tightness and wheezing and she was getting progressively more short of breath and there was concern that the patient was failing treatment. For that reason the patient was admitted to the hospital and the patient was started on a combination of antibiotics. On today's evaluation she is feeling better. Repeat chest x-ray from today shows improvement in the right lower lobe pulmonary infiltrates. No hemoptysis. No pleurisy. No change in mental status. No recurrences. Infectious. Influenza screen is been negative. The patient has not had any other complaints. She has mild chronic iron deficiency anemia related to her age HHT. On 06/20/2017 the patient is being seen for a follow-up. Doing better. Less short of breath. Last bronchus spastic and wheezy. Chest x-ray was reviewed from yesterday shows improvement of the right lower lobe pulmonary for today/ pneumonia. The patient is still having some increased shortness of breath with activities. She remains somewhat bronchospastic and wheezy. We decided to continue IV antibiotics and IV steroids for another 24 hours. No other new complaints for now. Influenza screen was negative. Patient was reevaluated today on 06/21/2017, doing much better, but continues to cough and wheeze. Cough is productive with yellow phlegm, chest x-ray on admission showed a right lower lobe pneumonia. The patient is seen again today 06/22/2017 a follow-up on the pediatric unit. She is awake and alert in no acute distress. She's been up ambulating in her room. She is feeling stronger today as compared to yesterday but not quite back to her baseline. She still has some cough and congestions. Still some wheezing. She is continued on DuoNeb inhalations, Symbicort, IV Solu-Medrol. She remains on Levaquin. Her blood and sputum cultures were negative. White count 21.7. Hemoglobin 9.8. Her stool for occult blood was positive. Did receive ferric sodium infusions daily 3. The patient is seen again today 06/23/2017 in follow-up in the pediatric unit. She remains awake and alert in no acute distress. She is quite nearly back to her baseline. She is anxious to go home. She denies any worsening shortness of breath, cough or congestion. She is maintaining good O2 saturations in the mid 90s on room air. She's been afebrile. Hemodynamically stable. No chills or night sweats. Blood and sputum cultures revealed no growth. He count improved to 18.9. Hemoglobin 9.3. Objective - Vital Signs Vital signs: Vital Signs Temp 97.4 F L 06/23/17 09:00 Pulse 80 06/23/17 09:27 Resp 24 06/23/17 09:00 BP 158/65 06/23/17 09:00 Pulse Ox 94 L 06/23/17 09:00 Intake & Output 06/22/17 06/23/17 06/23/17 18:59 06:59 18:59 Intake Total 400 100 Balance 400 100 Intake: Oral 400 100 Other: Voiding Method Toilet # Voids 1 1 - Exam GENERAL EXAM: Alert, active, comfortable in no apparent distress. HEAD: Normocephalic. EYES: Normal reaction of pupils, equal size. NOSE: Clear with pink turbinates. THROAT: No erythema or exudates. NECK: No masses, no JVD. CHEST: No chest wall deformity. LUNGS: Equal air entry with bilateral faint end expiratory wheeze. CVS: S1 and S2 normal with no audible murmur, regular rhythm. ABDOMEN: No hepatosplenomegaly, normal bowel sounds, no guarding or rigidity. SPINE: No scoliosis or deformity SKIN: No rashes CENTRAL NERVOUS SYSTEM: No focal deficits, tone is normal in all 4 extremities. EXTREMITIES: There is no peripheral edema. No clubbing, no cyanosis. Peripheral pulses are intact. - Labs CBC & Chem 7: 06/23/17 06:08 06/23/17 06:08 Labs: Abnormal Lab Results - Last 24 Hours (Table) 06/22/17 06/22/17 06/22/17 Range/Units 11:28 16:48 21:49 WBC (3.8-10.6) k/uL RBC (3.80-5.40) m/uL Hgb (11.4-16.0) gm/dL Hct (34.0-46.0) % MCV (80.0-100.0) fL MCHC (31.0-37.0) g/dL RDW (11.5-15.5) % POC Glucose (mg/dL) 109 H 100 H 154 H (75-99) mg/dL 06/23/17 Range/Units 06:08 WBC 18.9 H (3.8-10.6) k/uL RBC 2.98 L (3.80-5.40) m/uL Hgb 9.3 L (11.4-16.0) gm/dL Hct 31.0 L (34.0-46.0) % MCV 104.2 H (80.0-100.0) fL MCHC 30.0 L (31.0-37.0) g/dL RDW 16.4 H (11.5-15.5) % POC Glucose (mg/dL) (75-99) mg/dL Microbiology - Last 24 Hours (Table) 06/18/17 16:56 Blood Culture - Preliminary Blood No Growth after 96 hours Assessment and Plan Assessment: Impression: 1 acute community-acquired right lower lobe pneumonia, improving and today's chest x-ray shows improvement in the right lower lobe pulmonary infiltrate and recovered clinically. 2 acute bronchial asthma exacerbation secondary to above, he covered clinically. 3 hemorrhagic hereditary telangiectasia 4 chronic iron deficiency anemia 5 hypothyroidism 6 depression/anxiety Plan: The patient was seen and evaluated by Dr. Rm. She is improved today as compared to yesterday. Nearly back to her baseline. She is cleared for discharge from the pulmonary standpoint. Continue prednisone taper. Complete her antibiotics. Follow-up in our office in 1 week. We'll repeat a chest x- ray then. She call sooner with any recurrence of symptoms or any other questions or concerns. I, the cosigning physician, have performed a history and physical examination on the patient. Lung sounds bilateral faint end expiratory wheeze. Maintaining good O2 saturations in the 90s on room air. I have discussed the assessment and plan of care with my nurse practitioner, Christina Rosales. I attest to the above note as dictated by her.
--- NOTE | 2017-06-23 13:20 | P.DS ---
Providers Date of admission: 06/18/17 18:08 Expected date of discharge: 06/23/17 Attending physician: Tima Her MD Consults: 06/18/17 18:15 Consult Physician Routine Consulting Provider: Karl Richard Consult Reason/Comments: right lower lobe pneumonia Do you want consulting provider notified?: Yes Primary care physician: [facility] Course: This is 67 years old female with past medical history significant for asthma presents to the hospital from her pulmonary doctor's office due to worsening shortness breath. 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 Patient oxygen was above 90% on room air in the ER the patient was using accessory muscles and in [id number] distress and admitted to the medical floor when pulmonary consult was placed. Patient currently is denying chest pain, nausea vomiting, abdominal pain, dizziness, lightheadedness or dysuria. Patient stated that she smoked only 2 years as a teenager and was diagnosed with asthma greater than 12 years ago and has been using Symbicort twice daily along with breathing treatment 3 times daily and rescue inhaler as needed for long-time. Patient stated that she gets this exacerbation at least once a year and sometimes requires hospitalization 06/21: Patient continues to have some shortness of breath and wheezing. She is currently on IV Solumedrol 60 mg every 6 hours. Patient complains of tarry stool. Hemoglobin 9.9 and receiving Ferrlecit x 3. Blood pressure elevated and amlodipine added. 06/22: Repeat hemoglobin is 9.8 with occult blood positive. Patient is scheduled for endoscopy as an outpatient. No plan for transfusion. IV fluids to saline lock. Patient will be started on prednisone tomorrow morning. Sputum is showing normal adalberto. 06/23: Patient's breathing status is significantly improved from yesterday. Patient will be discharged on Levaquin and prednisone taper. Patient will be discharged home today in stable condition. Discharge diagnoses: 1. Asthma exacerbation, severe persistent. 2. Right lower lobe pneumonia. 3. Hypothyroidism. 4. Generalized anxiety disorder and recurrent depression. 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 Discharge plan: Return home Impression and plan of care have been directed as dictated by the signing physician. Fabiola Robins nurse practitioner acting as scribe for signing physician. Patient Condition at Discharge: Good Plan - Discharge Summary Discharge Rx Participant: Yes New Discharge Prescriptions: New amLODIPine [Norvasc] 5 mg PO DAILY #30 tab guaiFENesin [Mucinex] 600 mg PO Q12HR tablet.er Levofloxacin [Levaquin] 750 mg PO Q24H #5 tab predniSONE 0 mg PO DIRECTED #42 tab Continue Omeprazole 20 mg PO DAILY Sertraline [Zoloft] 100 mg PO DAILY Budesonide-Formot 160-4.5 Mcg [Symbicort 160-4.5 Mcg Inhaler] 2 puff INHALATION RT-BID Levothyroxine Sodium [Synthroid] 100 mcg PO DAILY Albuterol Sulfate [Proair Hfa] 1 - 2 puff INHALATION RT-QID PRN PRN Reason: asthma symptoms Ipratropium-Albuterol Nebulize [Duoneb 0.5 mg-3 mg/3 ml Soln] 3 ml INHALATION RT-TID Discontinued Azithromycin [Zithromax Z-pack] See Taper PO DAILY predniSONE See Taper PO DAILY Discharge Medication List Budesonide-Formot 160-4.5 Mcg [Symbicort 160-4.5 Mcg Inhaler] 2 puff INHALATION RT-BID 04/04/14 [History] Omeprazole 20 mg PO DAILY 04/04/14 [History] Sertraline [Zoloft] 100 mg PO DAILY 04/04/14 [History] Levothyroxine Sodium [Synthroid] 100 mcg PO DAILY 11/17/14 [History] Albuterol Sulfate [Proair Hfa] 1 - 2 puff INHALATION RT-QID PRN 12/27/14 [ History] Ipratropium-Albuterol Nebulize [Duoneb 0.5 mg-3 mg/3 ml Soln] 3 ml INHALATION RT -TID 06/18/17 [History] Levofloxacin [Levaquin] 750 mg PO Q24H #5 tab 06/23/17 [Rx] amLODIPine [Norvasc] 5 mg PO DAILY #30 tab 06/23/17 [Rx] guaiFENesin [Mucinex] 600 mg PO Q12HR tablet.er 06/23/17 [Rx] predniSONE 0 mg PO DIRECTED #42 tab 06/23/17 [Rx] Follow up Appointment(s)/Referral(s): Shukri Barlow MD [Primary Care Provider] - 1-2 days Patient Instructions/Handouts: Asthma (DC) Activity/Diet/Wound Care/Special Instructions: Prednisone is a twice a day medication. You had one dose this morning, please take second dose this evening. Refer to Asthma discharge instructions. If you have shortness of breath, difficulty breathing or any other respiratory concerns, call your doctor or return to the Emergency Department. Drink plenty of liquids to stay hydrated.
== END 2017-06-23 12:15 | disposition home or self-care (01) | DRG 194 ==
LOC: EC 15:08 → 6PED 18:08
PROVIDERS: ADMIT Internal Medicine; ATTEND Internal Medicine
DX: J18.9 Pneumonia, unspecified organism (principal); J45.51 Severe persistent asthma with (acute) exacerbation; I78.0 Hereditary hemorrhagic telangiectasia; D62 Acute posthemorrhagic anemia; F33.9 Major depressive disorder, recurrent, unspecified; D50.0 Iron deficiency anemia secondary to blood loss (chronic); E03.9 Hypothyroidism, unspecified; F41.1 Generalized anxiety disorder; G25.81 Restless legs syndrome; K21.9 Gastro-esophageal reflux disease without esophagitis; Z79.51 Long term (current) use of inhaled steroids; Z79.899 Other long term (current) drug therapy; Z82.49 Family history of ischemic heart disease and other diseases of the circulatory system; Z83.3 Family history of diabetes mellitus; Z86.73 Personal history of transient ischemic attack (TIA), and cerebral infarction without residual deficits; Z87.891 Personal history of nicotine dependence
CPT/HCPCS: 36415; 71046; 80048; 80053; 82272; 83540; 83550; 83605; 85025; 85027; 85610; 85730; 87040; 87070; 87205; 87502; 94640; 94760; 96374; 96375; 99284

== ENCOUNTER → 2017-09-14 | Outpatient (CLI) | payer MEDICARE, BC ==
[2017-09-14 15:59] LABS: Anisocytosis Slight; HGB 10.2 gm/dL (11.4-16.0); Hypochromasia Marked; MCH 31.4 pg (25.0-35.0); MCV 101.5 fL (80.0-100.0); Macrocytosis Slight; Mean Platelet Volume 8.3; Platelet Count 424 k/uL (150-450); RBC 3.26 m/uL (3.80-5.40); RDW 17.1 % (11.5-15.5); WBC 6.1 k/uL (3.8-10.6)
[2017-09-14 16:22] LABS: Anion Gap 13 mmol/L; Blood Urea Nitrogen 11 mg/dL (7-17); Carbon Dioxide 26 mmol/L (22-30); Chloride 108 mmol/L (98-107); Potassium 4.5 mmol/L (3.5-5.1); Sodium 147 mmol/L (137-145)
== END | disposition home or self-care (01) ==
LOC: LABPAT 15:22
PROVIDERS: ATTEND Internal Medicine Interventional Cardiology
DX: Z01.812 Encounter for preprocedural laboratory examination (principal); I25.5 Ischemic cardiomyopathy
CPT/HCPCS: 36415; 80051; 82565; 84520; 85027

== ENCOUNTER 2017-09-15 01:54 | Observation (INO) | payer MEDICARE, BC ==
[2017-09-15] MEDS ORDERED: SODIUM CHLORIDE 0.9% 500 ML IV STA (02:09)
[2017-09-15] MEDS ORDERED: SODIUM CHLORIDE 0.9% 1,000 ML IV STA (02:09)
[2017-09-15 02:23] LABS: Glucose,Whole Blood 95 mg/dL (75-99)
--- NOTE | 2017-09-15 02:24 | CT ---
EXAMINATION TYPE: CT brain wo con for TPA DATE OF EXAM: 09/15/2017 COMPARISON: NONE HISTORY: r/o stroke; face and hand numbness CT DLP: 943.80 mGycm Automated exposure control for dose reduction was used. FINDINGS: There is mild cerebral cortical atrophy. There is no mass effect nor midline shift. There is no evide nce of intracranial hemorrhage. There are tiny subtle hypodense areas in the internal capsule bilater ally. Calvarium is intact. IMPRESSION: MINIMAL ATROPHY. MINIMAL WHITE MATTER HYPODENSITY THAT COULD RELATE TO MICROVASCULAR ISCHEMIA. NO HEM ORRHAGE.
--- NOTE | 2017-09-15 02:48 | ED ---
General Adult HPI - General Chief complaint: Neuro Symptoms/Deficit Stated complaint: Facial and hand numbness Time Seen by Provider: 09/15/17 02:01 Source: patient, RN notes reviewed, old records reviewed Mode of arrival: ambulatory Limitations: no limitations - History of Present Illness Initial comments: This is a 67-year-old female to the ER for evaluation today. This patient presents today for evaluation regards to hand tingling and numbness, right- sided facial numbness. Patient does have history of some mild heart disease, recent catheterization scheduled for next week. Patient states she couldn't sleep tonight and then began to feel numbness and tingling in her hands, and await to emergency tonight she felt some numbness and tingling in the right side of her face. She has any headache no other issues. No other weakness or symptoms - Related Data Home Medications Medication Instructions Recorded Confirmed Budesonide-Formot 160-4.5 Mcg 2 puff INHALATION RT-BID 04/04/14 09/13/17 [Symbicort 160-4.5 Mcg Inhaler] Omeprazole 20 mg PO BID 04/04/14 09/13/17 Sertraline [Zoloft] 100 mg PO DAILY 04/04/14 09/13/17 Levothyroxine Sodium [Synthroid] 0.1 mg PO DAILY 11/17/14 09/13/17 Albuterol Sulfate [Proair Hfa] 1 - 2 puff INHALATION RT-QID PRN 12/27/14 Ipratropium-Albuterol Nebulize 3 ml INHALATION RT-TID PRN 06/18/17 09/13/17 [Duoneb 0.5 mg-3 mg/3 ml Soln] Ascorbic Acid [Vitamin C] 1,000 mg PO DAILY 09/13/17 09/13/17 Calcium Carbonate/Vitamin D3 2 each PO DAILY 09/13/17 09/13/17 [Calcium 600-Vit D3 400 Caplet] Allergies Allergy/AdvReac Type Severity Reaction Status Date / Time aspirin AdvReac BLEEDING Verified 09/13/17 15:51 ibuprofen AdvReac BLEEDING Verified 09/13/17 15:29 BLOOD THINNERS AdvReac BLEEDING Uncoded 09/13/17 15:29 Review of Systems ROS Statement: Those systems with pertinent positive or pertinent negative responses have been documented in the HPI. ROS Other: All systems not noted in ROS Statement are negative. Past Medical History Past Medical History: Asthma, Blood Disorder, Cancer, CVA/TIA, GERD/Reflux, GI Bleed, Musculoskeletal Disorder, Thyroid Disorder Additional Past Medical History / Comment(s): Hereditary hemorrhagic telangiectasia, Iron deficiency anemia, OCC RLS. POSS TIAs per MRIs. GI bleeds. SKIN CA. C/O LOW ENERGY; HAD ABN ECHO. History of Any Multi-Drug Resistant Organisms: None Reported Past Surgical History: Orthopedic Surgery Additional Past Surgical History / Comment(s): 11/26/15 acromioplasty excision distal clavical rotator cuff repair R shoulder. Other surgical HX: PH study esophageal impendance function test, bilateral cataract removals. EGD. bone spurs sg in feet/hands. Coiling of the pulmonary AV malformation Past Anesthesia/Blood Transfusion Reactions: No Reported Reaction Past Psychological History: Anxiety Smoking Status: Former smoker - Past Family History Mother Family Medical History: Cancer Additional Family Medical History / Comment(s): Mother is 92 yrs old. She has vision problem. Father Family Medical History: Coronary Artery Disease (CAD), Diabetes Mellitus Additional Family Medical History / Comment(s): Father at 66 yrs Sister(s) Family Medical History: Blood Disorder Additional Family Medical History / Comment(s): Hemorrhagic Telangiectasia General Exam - General Exam Comments Initial Comments: NIH of 0 Limitations: no limitations General appearance: alert, in no apparent distress Head exam: Present: atraumatic, normocephalic, normal inspection Eye exam: Present: normal appearance, PERRL, EOMI. Absent: scleral icterus, conjunctival injection, periorbital swelling ENT exam: Present: normal exam, mucous membranes moist Neck exam: Present: normal inspection. Absent: tenderness, meningismus, lymphadenopathy Respiratory exam: Present: normal lung sounds bilaterally. Absent: respiratory distress, wheezes, rales, rhonchi, stridor Cardiovascular Exam: Present: regular rate, normal rhythm, normal heart sounds. Absent: systolic murmur, diastolic murmur, rubs, gallop, clicks GI/Abdominal exam: Present: soft, normal bowel sounds. Absent: distended, tenderness, guarding, rebound, rigid Extremities exam: Present: normal inspection, full ROM, normal capillary refill. Absent: tenderness, pedal edema, joint swelling, calf tenderness Back exam: Present: normal inspection Neurological exam: Present: alert, oriented X3, CN II-XII intact Psychiatric exam: Present: normal affect, normal mood Skin exam: Present: warm, dry, intact, normal color. Absent: rash Course Vital Signs 09/15/17 09/15/17 09/15/17 01:56 01:59 02:59 Temperature 97.3 F L Pulse Rate 85 74 78 Respiratory 16 16 18 Rate Blood Pressure 183/83 150/77 135/62 O2 Sat by Pulse 97 99 98 Oximetry EKG Findings - EKG Comments: EKG Findings:: EKG shows normal sinus rhythm rate of 71, VA 120, QRS 1:30, QTC 510 Medical Decision Making - Medical Decision Making 67 female to the ER with upper extremity paresthesias bilateral hands and arms numbness and tingling, right-sided facial paresthesia, patient be admitted for continued neurological evaluation, CT brain negative - Lab Data Result diagrams: 09/15/17 02:22 09/15/17 02:22 Lab Results 09/15/17 09/15/17 09/15/17 Range/Units 02:21 02:22 02:22 WBC 6.1 (3.8-10.6) k/uL RBC 3.34 L (3.80-5.40) m/uL Hgb 10.5 L (11.4-16.0) gm/dL Hct 33.5 L (34.0-46.0) % MCV 100.3 H (80.0-100.0) fL MCH 31.5 (25.0-35.0) pg MCHC 31.4 (31.0-37.0) g/dL RDW 17.2 H (11.5-15.5) % Plt Count 446 (150-450) k/uL Neutrophils % 67 % Lymphocytes % 17 % Monocytes % 7 % Eosinophils % 6 % Basophils % 1 % Neutrophils # 4.0 (1.3-7.7) k/uL Lymphocytes # 1.0 (1.0-4.8) k/uL Monocytes # 0.4 (0-1.0) k/uL Eosinophils # 0.4 (0-0.7) k/uL Basophils # 0.1 (0-0.2) k/uL Hypochromasia Slight Anisocytosis Slight Macrocytosis Slight PT (9.0-12.0) sec INR (<1.2) APTT (22.0-30.0) sec Sodium (137-145) mmol/L Potassium (3.5-5.1) mmol/L Chloride (98-107) mmol/L Carbon Dioxide (22-30) mmol/L Anion Gap mmol/L BUN (7-17) mg/dL Creatinine (0.52-1.04) mg/dL Est GFR (CKD-EPI)AfAm (>60 ml/min/1.73 sqM) Est GFR (CKD-EPI)NonAf (>60 ml/min/1.73 sqM) Glucose (74-99) mg/dL POC Glucose (mg/dL) 95 (75-99) mg/dL POC Glu Hired Hand ID Denise Salazar Calcium (8.4-10.2) mg/dL Total Bilirubin (0.2-1.3) mg/dL AST (14-36) U/L ALT (9-52) U/L Alkaline Phosphatase (38-126) U/L Total Creatine Kinase 73 (30-135) U/L Total Protein (6.3-8.2) g/dL Albumin (3.5-5.0) g/dL Urine Color Urine Appearance (Clear) Urine pH (5.0-8.0) Ur Specific [place] (1.001-1.035) Urine Protein (Negative) Urine Glucose (UA) (Negative) Urine Ketones (Negative) Urine Blood (Negative) Urine Nitrite (Negative) Urine Bilirubin (Negative) Urine Urobilinogen (<2.0) mg/dL Ur Leukocyte Esterase (Negative) 09/15/17 09/15/17 09/15/17 Range/Units 02:22 02:22 02:56 WBC (3.8-10.6) k/uL RBC (3.80-5.40) m/uL Hgb (11.4-16.0) gm/dL Hct (34.0-46.0) % MCV (80.0-100.0) fL MCH (25.0-35.0) pg MCHC (31.0-37.0) g/dL RDW (11.5-15.5) % Plt Count (150-450) k/uL Neutrophils % % Lymphocytes % % Monocytes % % Eosinophils % % Basophils % % Neutrophils # (1.3-7.7) k/uL Lymphocytes # (1.0-4.8) k/uL Monocytes # (0-1.0) k/uL Eosinophils # (0-0.7) k/uL Basophils # (0-0.2) k/uL Hypochromasia Anisocytosis Macrocytosis PT 10.4 (9.0-12.0) sec INR 1.1 (<1.2) APTT 24.4 (22.0-30.0) sec Sodium 145 (137-145) mmol/L Potassium 3.9 (3.5-5.1) mmol/L Chloride 107 (98-107) mmol/L Carbon Dioxide 24 (22-30) mmol/L Anion Gap 14 mmol/L BUN 10 (7-17) mg/dL Creatinine 0.60 (0.52-1.04) mg/dL Est GFR (CKD-EPI)AfAm >90 (>60 ml/min/1.73 sqM) Est GFR (CKD-EPI)NonAf >90 (>60 ml/min/1.73 sqM) Glucose 90 (74-99) mg/dL POC Glucose (mg/dL) (75-99) mg/dL POC Glu Hired Hand ID Calcium 9.8 (8.4-10.2) mg/dL Total Bilirubin 0.3 (0.2-1.3) mg/dL AST 22 (14-36) U/L ALT 30 (9-52) U/L Alkaline Phosphatase 79 (38-126) U/L Total Creatine Kinase (30-135) U/L Total Protein 6.3 (6.3-8.2) g/dL Albumin 3.9 (3.5-5.0) g/dL Urine Color Light Yellow Urine Appearance Clear (Clear) Urine pH 6.0 (5.0-8.0) Ur Specific [place] 1.006 (1.001-1.035) Urine Protein Negative (Negative) Urine Glucose (UA) Negative (Negative) Urine Ketones Negative (Negative) Urine Blood Negative (Negative) Urine Nitrite Negative (Negative) Urine Bilirubin Negative (Negative) Urine Urobilinogen <2.0 (<2.0) mg/dL Ur Leukocyte Esterase Negative (Negative) - Radiology Data Radiology results: report reviewed (CT brain is negative for acute disease), image reviewed Disposition Clinical Impression: Transient cerebral ischemia, Paresthesia Disposition: ADMITTED IP TO THIS HOSP Condition: Fair Referrals: Shukri Barlow MD [Primary Care Provider] - 1-2 days
[2017-09-15 02:55] LABS: ALT 30 U/L (9-52); AST 22 U/L (14-36); Albumin 3.9 g/dL (3.5-5.0); Alkaline Phosphatase 79 U/L (38-126); Anion Gap 14 mmol/L; Anisocytosis Slight; Basophils # (A) 0.1 k/uL (0-0.2); Basophils % (A) 1 %; Blood Urea Nitrogen 10 mg/dL (7-17); Calcium 9.8 mg/dL (8.4-10.2); Carbon Dioxide 24 mmol/L (22-30); Chloride 107 mmol/L (98-107); Eosinophils # (A) 0.4 k/uL (0-0.7); Eosinophils % (A) 6 %; Glucose 90 mg/dL (74-99); HCT 33.5 % (34.0-46.0); HGB 10.5 gm/dL (11.4-16.0); Hypochromasia Slight; Lymphocytes % (A) 17 %; MCH 31.5 pg (25.0-35.0); MCHC 31.4 g/dL (31.0-37.0); MCV 100.3 fL (80.0-100.0); Macrocytosis Slight; Mean Platelet Volume 7.8; Monocytes # (A) 0.4 k/uL (0-1.0); Monocytes % (A) 7 %; Neutrophils % (A) 67 %; Platelet Count 446 k/uL (150-450); Potassium 3.9 mmol/L (3.5-5.1); RBC 3.34 m/uL (3.80-5.40); RDW 17.2 % (11.5-15.5); Sodium 145 mmol/L (137-145); Total Bilirubin 0.3 mg/dL (0.2-1.3); Total Protein 6.3 g/dL (6.3-8.2); WBC 6.1 k/uL (3.8-10.6)
[2017-09-15 02:57] LABS: INR 1.1 (<1.2); Partial Thromboplastin Time 24.4 sec (22.0-30.0); Prothrombin Time 10.4 sec (9.0-12.0)
[2017-09-15 03:13] LABS: Appearance,Urine Clear (Clear); Bilirubin,Urine Negative (Negative); Blood,Urine Negative (Negative); Color,Urine Light Yellow; Glucose,Urine (UA) Negative (Negative); Ketones,Urine Negative (Negative); Leukocyte Esterase,Urine Negative (Negative); Nitrite,Urine Negative (Negative); Protein,Urine Negative (Negative); Specific Gravity,Urine 1.006 (1.001-1.035); Urobilinogen,Urine <2.0 mg/dL (<2.0)
[2017-09-15 03:17] LABS: Creatine Kinase MB 1.5 ng/mL (0.0-2.4); Troponin I 0.014 ng/mL (0.000-0.034)
[2017-09-15] MEDS ORDERED: ASPIRIN 325 MG TAB PO STA (03:21)
[2017-09-15] MEDS ORDERED: SODIUM CHLORIDE 0.9% 1,000 ML IV SCH (03:30)
[2017-09-15 03:50] LABS: Amphetamine Screen,Urine Not Detected (NotDetected); Barbiturate Screen,Urine Not Detected (NotDetected); Benzodiazepines Screen,Urine Not Detected (NotDetected); Cocaine Screen,Urine Not Detected (NotDetected); Methadone Screen, Urine Not Detected (NotDetected); Opiate Screen,Urine Not Detected (NotDetected); Oxycodone Screen, Urine Not Detected (NotDetected); Phencyclidine Screen,Urine Not Detected (NotDetected); Tricyclic Antidepressant,Urine Not Detected (NotDetected); Urn Cannabinoid Scrn Not Detected (NotDetected)
[2017-09-15 04:28] VITALS: BMI 28.6
[2017-09-15] MEDS ORDERED: IPRATROPIUM-ALBUTEROL 3 ML NEB INHALATION PRN (09:21)
[2017-09-15] MEDS: PANTOPRAZOLE 40 MG TABLET PO SCH (12:24)
[2017-09-15] MEDS: SERTRALINE 100 MG TAB PO SCH (12:24)
[2017-09-15] MEDS: LEVOTHYROXINE 100 MCG TAB PO SCH (12:24)
[2017-09-15] MEDS: ALBUTEROL NEBULIZED 2.5 MG/3 ML INHALATION PRN ×3 (12:38→19:54)
--- NOTE | 2017-09-15 13:33 | P.HPIM ---
History of Present Illness H&P Date: 09/15/17 Chief Complaint: paresthesia This is a 67-year-old female one of Dr. Barlow with a previous medical history significant for asthma, CVA/TIA, GERD, history of GI bleed, history of HHT, hypothyroidism, patient was seen in or hospital back in generally 2018 after she was admitted to the hospital because of increased shortness of breath and she was treated for what appears to be a pneumonia that time, patient was recently seen with cardiology had a recent echocardiogram that showed the abnormalities and she was scheduled to go for left heart catheterization next week, she has been dealing with HHT for quite some time she was supposed to get Avastin treatment in that should help her disease prior to her going for her treatment as the patient cannot take any aspirin or any blood thinner at this point in time, she had a long conversation I believe with Dr. Henderson and Dr. Kim that she is going for left heart catheterization next week for diagnostic purposes without dimpling any stent at this point because she could not tolerate any anticoagulation, patient has been under a lot of stress recently she was laying down on the couch yesterday when she suddenly developed to have a significant numbness in both upper extremities and lower extremities and started to have a significant numbness on the right side of her face she ended up coming to the ER by her she had a computed tomography scan of the brain that was negative and because of that she was admitted to the hospital , ultrasound of the carotid was done MRI of the brain with and without dye will be done. Review of Systems Constitutional: Denies chills, Denies chronic headaches, Denies lethargy, Denies malaise, Denies weakness, Denies weight gain, Denies weight loss Eyes: denies blurred vision, denies bulging eye, denies decreased vision Ears, nose, mouth and throat: Denies dysphagia, Denies neck fullness/pressure, Denies neck lump, Denies swelling in throat, Denies sore throat, Denies vertigo Cardiovascular: Denies chest pain, Denies decreased exercise tolerance, Denies dyspnea on exertion, Denies high blood pressure, Denies irregular heart beat, Denies paroxysmal nocturnal dyspnea, Denies rapid heart beat, Denies shortness of breath, Denies syncope Respiratory: Denies congestion, Denies cough with sputum, Denies home oxygen, Denies sleep apnea, Denies snoring, Denies wheezing Gastrointestinal: Denies abdominal pain, Denies hematemesis, Denies hematochezia , Denies melena, Denies nausea, Denies vomiting Genitourinary: Denies dysuria, Denies urgency Menstruation: Reports postmenopausal Musculoskeletal: Denies myalgias Musculoskeletal: absent: ankle pain, ankle stiffness, ankle swelling, elbow pain , elbow stiffness, elbow swelling, foot pain, foot stiffness, foot swelling, hand pain, hand stiffness, hand swelling, hip pain, hip stiffness, hip swelling , knee pain, knee stiffness, knee swelling, shoulder pain, shoulder stiffness, shoulder swelling, wrist pain, wrist stiffness, wrist swelling Integumentary: Denies pruritus, Denies rash Neurological: Reports numbness, Denies confusion, Denies double vision, Denies gait dysfunction, Denies headaches, Denies paralysis, Denies spasticity, Denies syncope, Denies transient paralysis, Denies tremors, Denies weakness Psychiatric: Reports anxiety, Denies depression Endocrine: Denies fatigue, Denies weight change Past Medical History Past Medical History: Asthma, Blood Disorder, Cancer, CVA/TIA, GERD/Reflux, GI Bleed, Musculoskeletal Disorder, Thyroid Disorder Additional Past Medical History / Comment(s): Hereditary hemorrhagic telangiectasia, Iron deficiency anemia, OCC RLS. POSS TIAs per MRIs. GI bleeds. SKIN CA. C/O LOW ENERGY; HAD ABN ECHO. History of Any Multi-Drug Resistant Organisms: None Reported Past Surgical History: Orthopedic Surgery Additional Past Surgical History / Comment(s): 11/26/15 acromioplasty excision distal clavical rotator cuff repair R shoulder. Other surgical HX: PH study esophageal impendance function test, bilateral cataract removals. EGD. bone spurs sg in feet/hands. Coiling of the pulmonary AV malformation Past Anesthesia/Blood Transfusion Reactions: No Reported Reaction Past Psychological History: Anxiety Additional Psychological History / Comment(s): Pt resides with her spouse. She is independent. She has medication which she states helps her with her anxiety. Smoking Status: Former smoker Past Alcohol Use History: None Reported Additional Past Alcohol Use History / Comment(s): She did smoke for 2 years as a teenager. Past Drug Use History: None Reported - Past Family History Mother Family Medical History: Cancer Additional Family Medical History / Comment(s): Mother is 92 yrs old. She has vision problem. Father Family Medical History: Coronary Artery Disease (CAD), Diabetes Mellitus Additional Family Medical History / Comment(s): Father at 66 yrs Sister(s) Family Medical History: Blood Disorder Additional Family Medical History / Comment(s): Hemorrhagic Telangiectasia Medications and Allergies Home Medications Medication Instructions Recorded Confirmed Type Budesonide-Formot 160-4.5 Mcg 2 puff INHALATION RT-BID 04/04/14 09/15/17 History [Symbicort 160-4.5 Mcg Inhaler] Omeprazole 20 mg PO BID 04/04/14 09/15/17 History Sertraline [Zoloft] 100 mg PO DAILY 04/04/14 09/15/17 History Levothyroxine Sodium [Synthroid] 100 mcg PO DAILY 11/17/14 09/15/17 History Albuterol Sulfate [Proair Hfa] 1 - 2 puff INHALATION RT-QID PRN 12/27/14 History Ipratropium-Albuterol Nebulize 3 ml INHALATION RT-TID PRN 06/18/17 09/15/17 History [Duoneb 0.5 mg-3 mg/3 ml Soln] Ascorbic Acid [Vitamin C] 1,000 mg PO DAILY 09/13/17 09/15/17 History Calcium Carbonate/Vitamin D3 2 tab PO DAILY 09/13/17 09/15/17 History [Calcium 600-Vit D3 400 Caplet] Allergies Allergy/AdvReac Type Severity Reaction Status Date / Time aspirin AdvReac BLEEDING Verified 09/15/17 08:52 ibuprofen AdvReac BLEEDING Verified 09/15/17 08:52 BLOOD THINNERS AdvReac BLEEDING Uncoded 09/13/17 15:29 Physical Exam Vitals: Vital Signs Temp Pulse Pulse Resp BP BP Pulse Ox 09/15/17 12:49 76 09/15/17 12:41 74 09/15/17 12:00 97.6 F 86 16 158/73 95 09/15/17 10:21 97.5 F L 74 16 140/70 96 09/15/17 08:21 97.8 F 78 18 132/70 96 09/15/17 08:00 97.6 F 87 18 145/65 94 L 09/15/17 04:00 18 09/15/17 03:59 97.6 F 78 18 129/73 99 09/15/17 03:48 86 15 136/60 96 09/15/17 02:59 78 18 135/62 98 09/15/17 01:59 74 16 150/77 99 09/15/17 01:56 97.3 F L 85 16 183/83 97 Intake and Output 09/14/17 09/15/17 09/15/17 22:59 06:59 14:59 Intake Total 200 360 Balance 200 360 Intake: Intake, IV Titration 200 Amount Sodium Chloride 0.9% 1, 200 000 ml @ 100 mls/hr IV . Q10H [facility] Rx#:[id number] Oral 360 Other: Weight 66.5 kg - Constitutional General appearance: average body habitus, no acute distress - EENT Eyes: anicteric sclerae, EOMI, PERRLA, no ptosis, no scleral icterus, normal appearance ENT: hearing grossly normal, NA/AT, normal oropharynx, no thrush Ears: bilateral: normal - Neck Neck: no lymphadenopathy, normal ROM, no rigidity, no stridor, no thyromegaly Carotids: bilateral: upstroke normal Thyroid: bilateral: normal size - Respiratory Respiratory: bilateral: diminished, negative: dullness, rales, rhonchi, wheezing , prolonged expiration, prolonged inspiration - Cardiovascular Rhythm: regular Heart sounds: normal: S1, S2 Abnormal Heart Sounds: systolic murmur, no S3 Gallop, no S4 Gallop - Gastrointestinal General gastrointestinal: normal bowel sounds, soft, no splenomegaly, no tenderness, no umbilical hernia, no ventral hernia - Integumentary Integumentary: normal, normal turgor - Neurologic Neurologic: CNII-XII intact - Musculoskeletal Musculoskeletal: strength equal bilaterally - Psychiatric Psychiatric: A&O x's 3, appropriate affect, intact judgment & insight Results CBC & Chem 7: 09/15/17 02:22 09/15/17 02:22 Labs: Abnormal Lab Results - Last 24 Hours (Table) 09/15/17 Range/Units 02:22 RBC 3.34 L (3.80-5.40) m/uL Hgb 10.5 L (11.4-16.0) gm/dL Hct 33.5 L (34.0-46.0) % MCV 100.3 H (80.0-100.0) fL RDW 17.2 H (11.5-15.5) % Thrombosis Risk Factor Assmnt - DVT/VTE Prophylaxis DVT/VTE Prophylaxis: Mechanical Prophylaxis ordered, Contraindicated - See note - Choose All That Apply Any of the Below Risk Factors Present?: Yes Each Factor Represents 1 point: Obesity (BMI >25) Other Risk Factors: Yes Each Risk Factor Represents 2 Points: Age 61-74 years Thrombosis Risk Factor Assessment Total Risk Factor Score: 3 Thrombosis Risk Factor Assessment Level: Moderate Risk Assessment and Plan Assessment: Assessment and plan: 1. Paresthesia involving upper lower extremities of right side of the face. Doubt acute CVA at this point possible TIA especially the patient was she presented to the ER she had hypertensive urgency with a blood pressure 185/80, continue with the neuro check around the clock, ultrasound of the carotid would be done, MRI of the brain with and without gadolinium. Avoid antiplatelet therapy. 2. Abnormal echo/stress test. With possible CAD. Patient is scheduled to go for left heart catheterization next week. 3. Hypothyroidism. Continue patient on Synthroid 100 mg orally once every day. 4. Asthma. Continue patient is Symbicort 160/4.5 g 2 puffs inhalation twice every day as well as DuoNeb nebulization 4 times every day. 5. GERD. Continue Prilosec 20 mg orally once every day. 6. Anxiety. Continue Zoloft 100 mg orally once every day. 7. DVT prophylaxis. Continue with early ambulation.. 8. GI prophylaxis. Continue with PPI. 9. Admit to inpatient. Estimate a length of stay 2 midnights. 10. Patient is a full code.
--- NOTE | 2017-09-15 14:00 | US ---
EXAMINATION TYPE: US carotid duplex BILAT DATE OF EXAM: 09/15/2017 COMPARISON: NONE CLINICAL HISTORY: Stenosis. EXAM MEASUREMENTS: RIGHT: Peak Systolic Velocity (PSV) cm/sec ----- Right CCA: 64.4 ----- Right ICA: 89.2 ----- Right ECA: 72.1 ICA/CCA ratio: 1.4 RIGHT: End Diastole cm/sec ----- Right CCA: 21.8 ----- Right ICA: 21.7 ----- Right ECA: 16.0 LEFT: Peak Systolic Velocity (PSV) cm/sec ----- Left CCA: 93.1 ----- Left ICA: 101.3 ----- Left ECA: 77.6 ICA/CCA ratio: 1.1 LEFT: End Diastole cm/sec ----- Left CCA: 31.9 ----- Left ICA: 28.6 ----- Left ECA: 17.1 VERTEBRALS (direction of flow): Right Vertebral: Antegrade Left Vertebral: Antegrade Rhythm: Normal Mild atherosclerotic changes with no significant velocity increases seen bilaterally. IMPRESSION: 1. No significant flow-limiting stenosis. 2. Mild atheromatous plaquing and mild intimal thickening without stenosis. Criteria for Assigning % of Stenosis / Diameter reduction (Estimation based on the indirect measurements of the internal carotid artery velocities (ICA PSV). 1. Normal (no stenosis)=ICA PSV < 125 cm/s: ratio < 2.0: ICA EDV<40 cm/s. 2. Less than 50% stenosis=ICA PSV < 125 cm/s: ratio < 2.0: ICA EDV<40 cm/s. 3. 50 to 69% stenosis=ICA PSV of 125 to 230 cm/s: ration 2.0 ? 4.0: ICA EDV 40-100 cm/s. 4. Greater than 70% stenosis to near occlusion= ICA PSV > 230 cm/s: ratio > 4.0: ICA EDV > 100 cm/s. 5. Near occlusion= ICA PSV velocities may be low or undetectable: variable ratio and ICA EDV. 6. Total occlusion=unable to detect flow.
--- NOTE | 2017-09-15 19:00 | MR ---
EXAMINATION TYPE: MR brain wo and with con DATE OF EXAM: 09/15/2017 COMPARISON: CT 09/15/2017 HISTORY: TIA TECHNIQUE: Standard multiplanar, multisequence MRI departmental protocol. Diffusion weighted imaging was performed. FINDINGS: There is no restricted diffusion to suggest acute or subacute infarction. There is no intra cranial hemorrhage or mass or mass effect. There are a few scattered subcentimeter deep white matter T2 hyperintensities noted in the bilateral centrum semiovale and garrido radiata, most conspicuous on the T2 FLAIR sequence, which are entirely n onspecific. The contrast enhancement pattern is normal. The extra-axial compartment is unremarkable. Calvarium is negative. The visualized paranasal sinuses, mastoid sinus air cells, and middle ear cavities are clear. Orbits and extra cranial soft tissues ar e unremarkable. IMPRESSION: 1. NO ACUTE PROCESS. 2. SCATTERED SUBCENTIMETER DEEP WHITE MATTER T2 NONENHANCING HYPERINTENSITIES NOTED, ENTIRELY NONSPEC IFIC.
--- NOTE | 2017-09-15 19:10 | P.CNNES ---
History of Present Illness Consult date: 09/15/17 History of Present Illness: The patient is a 67-year-old right-handed white female who states she was awake laying on the couch watching television at 2 AM when she experienced sudden onset numbness and tingling in both hands both feet and right lower face. She states that she went to the emergency room at [facility] and the symptoms of tingling in the right face went away quite quickly but to the hands and feet tingling cut better after 6 hours and by 12 hours it resolved. She now feels almost back to her usual self. She denied any focal weakness vision disturbance dizziness headache or balance disturbance. She denied any neck problems. She has a history of HHT and is unable to take any blood thinners or aspirin. He states she receives iron infusions every 3 weeks because of her bleeding disturbance. Review of Systems Constitutional: Denies chills, Denies fever Ears, nose, mouth and throat: Denies headache, Denies sore throat Respiratory: Denies cough Gastrointestinal: Denies abdominal pain, Denies diarrhea, Denies nausea, Denies vomiting Musculoskeletal: Denies myalgias Neurological: Denies numbness, Denies weakness Past Medical History Past Medical History: Asthma, Blood Disorder, Cancer, CVA/TIA, GERD/Reflux, GI Bleed, Musculoskeletal Disorder, Thyroid Disorder Additional Past Medical History / Comment(s): Hereditary hemorrhagic telangiectasia, Iron deficiency anemia, OCC RLS. POSS TIAs per MRIs. GI bleeds. SKIN CA. C/O LOW ENERGY; HAD ABN ECHO. History of Any Multi-Drug Resistant Organisms: None Reported Past Surgical History: Orthopedic Surgery Additional Past Surgical History / Comment(s): 11/26/15 acromioplasty excision distal clavical rotator cuff repair R shoulder. Other surgical HX: PH study esophageal impendance function test, bilateral cataract removals. EGD. bone spurs sg in feet/hands. Coiling of the pulmonary AV malformation Past Anesthesia/Blood Transfusion Reactions: No Reported Reaction Past Psychological History: Anxiety Additional Psychological History / Comment(s): Pt resides with her spouse. She is independent. She has medication which she states helps her with her anxiety. Smoking Status: Former smoker Past Alcohol Use History: None Reported Additional Past Alcohol Use History / Comment(s): She did smoke for 2 years as a teenager. Past Drug Use History: None Reported - Past Family History Mother Family Medical History: Cancer Additional Family Medical History / Comment(s): Mother is 92 yrs old. She has vision problem. Father Family Medical History: Coronary Artery Disease (CAD), Diabetes Mellitus Additional Family Medical History / Comment(s): Father at 66 yrs Sister(s) Family Medical History: Blood Disorder Additional Family Medical History / Comment(s): Hemorrhagic Telangiectasia Medications and Allergies Home Medications Medication Instructions Recorded Confirmed Type Budesonide-Formot 160-4.5 Mcg 2 puff INHALATION RT-BID 04/04/14 09/15/17 History [Symbicort 160-4.5 Mcg Inhaler] Omeprazole 20 mg PO BID 04/04/14 09/15/17 History Sertraline [Zoloft] 100 mg PO DAILY 04/04/14 09/15/17 History Levothyroxine Sodium [Synthroid] 100 mcg PO DAILY 11/17/14 09/15/17 History Albuterol Sulfate [Proair Hfa] 1 - 2 puff INHALATION RT-QID PRN 12/27/14 History Ipratropium-Albuterol Nebulize 3 ml INHALATION RT-TID PRN 06/18/17 09/15/17 History [Duoneb 0.5 mg-3 mg/3 ml Soln] Ascorbic Acid [Vitamin C] 1,000 mg PO DAILY 09/13/17 09/15/17 History Calcium Carbonate/Vitamin D3 2 tab PO DAILY 09/13/17 09/15/17 History [Calcium 600-Vit D3 400 Caplet] Allergies Allergy/AdvReac Type Severity Reaction Status Date / Time aspirin AdvReac BLEEDING Verified 09/15/17 08:52 ibuprofen AdvReac BLEEDING Verified 09/15/17 08:52 BLOOD THINNERS AdvReac BLEEDING Uncoded 09/13/17 15:29 Physical Examination - Vital Signs Vital Signs: Vital Signs Temp Pulse Pulse Resp BP BP Pulse Ox 09/15/17 18:21 82 16 148/72 95 09/15/17 16:21 97.6 F 78 16 144/70 96 09/15/17 16:19 82 09/15/17 16:12 82 09/15/17 14:21 86 16 150/72 96 09/15/17 12:49 76 09/15/17 12:41 74 09/15/17 12:00 97.6 F 86 16 158/73 95 09/15/17 10:21 97.5 F L 74 16 140/70 96 09/15/17 08:21 97.8 F 78 18 132/70 96 09/15/17 08:00 97.6 F 87 18 145/65 94 L 09/15/17 04:00 18 09/15/17 03:59 97.6 F 78 18 129/73 99 09/15/17 03:48 86 15 136/60 96 09/15/17 02:59 78 18 135/62 98 09/15/17 01:59 74 16 150/77 99 09/15/17 01:56 97.3 F L 85 16 183/83 97 Intake and Output 09/15/17 09/15/17 09/15/17 06:59 14:59 22:59 Intake Total 200 360 240 Balance 200 360 240 Intake: Intake, IV Titration 200 Amount Sodium Chloride 0.9% 1, 200 000 ml @ 100 mls/hr IV . Q10H [facility] Rx#:[id number] Oral 360 240 Other: # Voids 1 Weight 66.5 kg - Constitutional General appearance: average body habitus, cooperative - EENT EENT: PERRL, hearing intact, vision intact - Respiratory Respiratory: lungs clear - Cardiovascular Cardiovascular: regular rate, normal S1, normal S2 - Neurologic Mental status she was awake alert and oriented there is no a aphasia or dysarthria Cranial nerve examination: V1/V2/V3 grossly intact, face symmetric, tongue midline Speech examination: intact Detailed motor examination: grossly full strength in all extremities Reflex and gait examination: intact Reflexes: 2+: bicep, knee - Psychiatric Psychiatric: mood/affect appropriate Results - Laboratory Findings CBC and BMP: 09/15/17 02:22 09/15/17 02:22 Abnormal Lab Findings: Abnormal Labs 09/15/17 02:22 RBC 3.34 L Hgb 10.5 L Hct 33.5 L MCV 100.3 H RDW 17.2 H Assessment and Plan (1) Paresthesia Current Visit: Yes Status: Acute SNOMED Code(s): 82764024 Plan: The patient is a 67-year-old woman admitted to the hospital with abrupt onset paresthesias of the hands and feet. This is resolved after 12 hours. She is asymptomatic currently and her neurologic examination is nonfocal. She is anxious to go home. She has HHT and is unable to take any aspirin products. Along with appears seizures of the hands and feet she also experienced lower face numbness on the right side and this also resolved quickly. Her paresthesias are of unclear etiology and an art and are not typical of stroke like symptoms. She should be checked for B12 deficiency. As an outpatient the patient can get MRI of the cervical spine to rule out a cervical disc protrusion that may cause such symptoms . She has had an MRI of the brain today which showed nonspecific white matter changes.
[2017-09-15] MEDS: SYMBICORT 160-4.5 MCG INHALER INHALATION SCH (19:54)
[2017-09-15 20:03] VITALS: RESP 18
[2017-09-15] MEDS ORDERED: ATORVASTATIN 80 MG TAB PO SCH (21:00)
[2017-09-16 02:12] LABS: Cholesterol 142 mg/dL (<200); HDL Cholesterol 53 mg/dL (40-60); LDL Cholesterol,Calculated 66 mg/dL (0-99); Triglycerides 115 mg/dL (<150)
[2017-09-16] MEDS: PANTOPRAZOLE 40 MG TABLET PO SCH (05:49)
[2017-09-16] MEDS: LEVOTHYROXINE 100 MCG TAB PO SCH (05:49)
[2017-09-16] MEDS: SERTRALINE 100 MG TAB PO SCH (07:51)
[2017-09-16 07:57] VITALS: TEMP 97.7
[2017-09-16] MEDS: SYMBICORT 160-4.5 MCG INHALER INHALATION SCH (08:31)
[2017-09-16] MEDS ORDERED: ASPIRIN 325 MG TAB PO SCH (09:00)
[2017-09-16 12:24] VITALS: BP 144/67; PULSE 95
--- NOTE | 2017-09-17 14:24 | P.DS ---
Providers Date of admission: 09/15/17 03:21 Expected date of discharge: 09/16/17 Attending physician: Shukri Barlow Consults: 09/15/17 03:22 Consult Physician Routine Consulting Provider: Tamanna Membreno Consult Reason/Comments: paresthesia Do you want consulting provider notified?: Yes Primary care physician: Shukri Barlow [place] [facility] Course: This is a 67-year-old female one of Dr. Barlow with a previous medical history significant for asthma, CVA/TIA, GERD, history of GI bleed, history of HHT, hypothyroidism, patient was seen in or hospital back in generally 2018 after she was admitted to the hospital because of increased shortness of breath and she was treated for what appears to be a pneumonia that time, patient was recently seen with cardiology had a recent echocardiogram that showed the abnormalities and she was scheduled to go for left heart catheterization next week, she has been dealing with HHT for quite some time she was supposed to get Avastin treatment in that should help her disease prior to her going for her treatment as the patient cannot take any aspirin or any blood thinner at this point in time, she had a long conversation I believe with Dr. Henderson and Dr. Kim that she is going for left heart catheterization next week for diagnostic purposes without dimpling any stent at this point because she could not tolerate any anticoagulation, patient has been under a lot of stress recently she was laying down on the couch yesterday when she suddenly developed to have a significant numbness in both upper extremities and lower extremities and started to have a significant numbness on the right side of her face she ended up coming to the ER by her she had a computed tomography scan of the brain that was negative and because of that she was admitted to the hospital , ultrasound of the carotid was done MRI of the brain with and without dye will be done. 4/5: MRI of the brain showed no acute process. Scattered subcentimeter deep white matter T2 nonenhancing hyperintensities noted. Entirely nonspecific. Carotid ultrasound showed no significant flow-limiting stenosis. Mild atheromatous plaquing with mild intimal thickening without stenosis. Patient has been seen by Dr. Membreno with recommendations for evaluation of B12 deficiency, MRI of the cervical spine as an outpatient. Vitamin B12 level came back at 1797. Triglycerides 1:15, cholesterol 142, LDL 66, HDL 53. Patient will be discharged home today in stable condition. Discharge diagnoses: 1. Paresthesia involving upper lower extremities of right side of the face. 2. Abnormal echo/stress test. With possible CAD. Patient is scheduled to go for left heart catheterization next week. 3. Hypothyroidism. 4. Asthma. 5. GERD. 6. Anxiety. Discharge plan: Home Impression and plan of care have been directed as dictated by the signing physician. Fabiola Robins nurse practitioner acting as scribe for signing physician. Patient Condition at Discharge: Good Plan - Discharge Summary Discharge Rx Participant: No New Discharge Prescriptions: New Atorvastatin [Lipitor] 80 mg PO HS #30 tab Continue Omeprazole 20 mg PO BID Sertraline [Zoloft] 100 mg PO DAILY Budesonide-Formot 160-4.5 Mcg [Symbicort 160-4.5 Mcg Inhaler] 2 puff INHALATION RT-BID Levothyroxine Sodium [Synthroid] 100 mcg PO DAILY Albuterol Sulfate [Proair Hfa] 1 - 2 puff INHALATION RT-QID PRN PRN Reason: asthma symptoms Ipratropium-Albuterol Nebulize [Duoneb 0.5 mg-3 mg/3 ml Soln] 3 ml INHALATION RT-TID PRN PRN Reason: ASTHMA Ascorbic Acid [Vitamin C] 1,000 mg PO DAILY Calcium Carbonate/Vitamin D3 [Calcium 600-Vit D3 400 Caplet] 2 tab PO DAILY Discharge Medication List Budesonide-Formot 160-4.5 Mcg [Symbicort 160-4.5 Mcg Inhaler] 2 puff INHALATION RT-BID 04/04/14 [History] Omeprazole 20 mg PO BID 04/04/14 [History] Sertraline [Zoloft] 100 mg PO DAILY 04/04/14 [History] Levothyroxine Sodium [Synthroid] 100 mcg PO DAILY 11/17/14 [History] Albuterol Sulfate [Proair Hfa] 1 - 2 puff INHALATION RT-QID PRN 12/27/14 [ History] Ipratropium-Albuterol Nebulize [Duoneb 0.5 mg-3 mg/3 ml Soln] 3 ml INHALATION RT -TID PRN 06/18/17 [History] Ascorbic Acid [Vitamin C] 1,000 mg PO DAILY 09/13/17 [History] Calcium Carbonate/Vitamin D3 [Calcium 600-Vit D3 400 Caplet] 2 tab PO DAILY 08/01 [History] Atorvastatin [Lipitor] 80 mg PO HS #30 tab 09/16/17 [Rx] Follow up Appointment(s)/Referral(s): Shukri Barlow MD [Primary Care Provider] - 09/21/17 1:00 pm () Tamanna Membreno MD [STAFF PHYSICIAN] - 09/28/17 2:00 pm (Office to call with a follow up appointment.) Patient Instructions/Handouts: Transient Ischemic Attack (DC), Left Heart Catheterization (DC), Heart Healthy Diet (DC), Hypertension (DC) Activity/Diet/Wound Care/Special Instructions: Outpatient heart catheterization. OP MRI cervical spine in 2 weeks Discharge Disposition: HOME SELF-CARE
--- NOTE | 2017-09-22 13:56 | LTR ---
DATE OF SERVICE: 09/22/2017 RE: Diya Silva Dear Dr. Barlow; I had the pleasure to perform cardiac catheterization on Mrs Silva at [facility] on September 22, 2017 and a full copy of the procedure note will be forwarded to you. In brief, she was found to mild to moderate obstructive coronary artery disease in the LAD and the diagonal branch and based on those findings, I recommend continue medical therapy with aggressive risk factor modifications being initiated and thank you again for allowing me to participate in this patient's care. Please feel free to call for any questions. Sincerely yours, MD GODWIN Zavala / ABHINAVN: [id number] /
== END 2017-09-16 13:42 | disposition home or self-care (01) ==
LOC: EC 01:54 → 6SEL 03:21
PROVIDERS: ADMIT Internal Medicine Geriatric Medicine; ATTEND Internal Medicine Geriatric Medicine
DX: R20.2 Paresthesia of skin (principal); R20.0 Anesthesia of skin; R94.39 Abnormal result of other cardiovascular function study; E03.9 Hypothyroidism, unspecified; J45.909 Unspecified asthma, uncomplicated; K21.9 Gastro-esophageal reflux disease without esophagitis; F41.9 Anxiety disorder, unspecified; I16.0 Hypertensive urgency; Z86.73 Personal history of transient ischemic attack (TIA), and cerebral infarction without residual deficits; Z87.01 Personal history of pneumonia (recurrent); I78.0 Hereditary hemorrhagic telangiectasia; E53.8 Deficiency of other specified B group vitamins; Z79.51 Long term (current) use of inhaled steroids; Z79.899 Other long term (current) drug therapy; Z88.6 Allergy status to analgesic agent; Z85.828 Personal history of other malignant neoplasm of skin; Z87.891 Personal history of nicotine dependence; Z95.828 Presence of other vascular implants and grafts; Z83.3 Family history of diabetes mellitus; Z82.49 Family history of ischemic heart disease and other diseases of the circulatory system; E66.9 Obesity, unspecified; Z68.28 Body mass index [BMI] 28.0-28.9, adult; Z80.9 Family history of malignant neoplasm, unspecified
CPT/HCPCS: 99285 ×2; 96360 ×2; 96361; 36415; 94640 ×4; 94760; 93005; 97161; 92523; 80061; 80053; 82607; 82550; 82553; 84484; 85025; 85610; 85730; 81003; 80306; 93880; 70450; 70551; G0378 ×2

== ENCOUNTER → 2018-01-17 | Outpatient (CLI) | payer MEDICARE, BC ==
[2018-01-17 13:02] VITALS: BP 145/75; PULSE 72; RESP 16; TEMP 98
== END | disposition home or self-care (01) ==
LOC: PROCWHC3 12:55
PROVIDERS: ATTEND Internal Medicine Geriatric Medicine
DX: M81.0 Age-related osteoporosis without current pathological fracture (principal)
CPT/HCPCS: 96372; J0897

== ENCOUNTER → 2018-02-10 | Outpatient (CLI) | payer MEDICARE, BC ==
[2018-02-10 16:09] LABS: HCT 47.2 % (34.0-46.0); HGB 15.5 gm/dL (11.4-16.0); MCH 30.9 pg (25.0-35.0); MCHC 32.9 g/dL (31.0-37.0); MCV 93.9 fL (80.0-100.0); Mean Platelet Volume 8.3; Platelet Count 282 k/uL (150-450); RBC 5.02 m/uL (3.80-5.40); RDW 14.5 % (11.5-15.5); WBC 7.7 k/uL (3.8-10.6)
[2018-02-10 16:19] LABS: Anion Gap 8 mmol/L; Blood Urea Nitrogen 16 mg/dL (7-17); Carbon Dioxide 28 mmol/L (22-30); Chloride 104 mmol/L (98-107); Potassium 4.6 mmol/L (3.5-5.1); Sodium 140 mmol/L (137-145)
== END | disposition home or self-care (01) ==
LOC: LABPAT 15:33
PROVIDERS: ATTEND Internal Medicine Clinical Cardiac Electrophysiology
DX: Z01.812 Encounter for preprocedural laboratory examination (principal); I42.0 Dilated cardiomyopathy; I50.22 Chronic systolic (congestive) heart failure; I44.7 Left bundle-branch block, unspecified; I65.23 Occlusion and stenosis of bilateral carotid arteries
CPT/HCPCS: 36415; 80051; 82565; 84520; 85027

== ENCOUNTER 2018-02-22 06:12 | Day surgery (SDC) | payer MEDICARE, BC ==
[~2018-02-22 06:12] MED LIST changes: -DENOSUMAB 60 MG/ML 1 ML SYRINGE SQ ONE; +ceFAZolin 1,000 MG in SODIUM CHLORIDE 0.9% IRRIGATIO 250 ML IRRIGATION ONE; +ceFAZolin IN SWFI 2 GM/20 ML SYRINGE IVP ONE
[2018-02-22] MEDS: SODIUM CHLORIDE 0.9% 1,000 ML IV SCH ×2 (06:39→13:02)
[2018-02-22] MEDS ORDERED: LIDOCAINE 1% INJ 10MG/ML (20 ML MDV) ONE ×2 (07:10→07:11)
[2018-02-22] MEDS ORDERED: fentaNYL (PF) 50 MCG/ML 2 ML AMP ONE (07:22)
[2018-02-22] MEDS ORDERED: PROPOFOL 10 MG/ML 20 ML VIAL IV ONE (07:22)
[2018-02-22] MEDS ORDERED: MIDAZOLAM 2 MG/2 ML VIAL ONE (07:22)
[2018-02-22] MEDS ORDERED: IOPAMIDOL-250 50ML BTL IV ONE ×3 (07:33→10:26)
[2018-02-22] MEDS ORDERED: LIDOCAINE 1% INJ 10MG/ML (20 ML MDV) SQ ONE (08:19)
[2018-02-22] MEDS ORDERED: ACETAMINOPHEN IV (For NPO) 1,000 MG in EMPTY BAG 1 BAG IVPB ONE (11:02)
[2018-02-22] MEDS ORDERED: ACETAMINOPHEN TAB 325 MG TAB PO PRN (11:02)
[2018-02-22] MEDS: LACTATED RINGERS 1,000 ML IV SCH (13:02)
[2018-02-22] MEDS: ceFAZolin IN SWFI 2 GM/20 ML SYRINGE IVP SCH ×2 (14:48→20:42)
[2018-02-22] MEDS: SPIRONOLACTONE 25 MG TAB PO SCH (14:48)
[2018-02-22 16:55] VITALS: BMI 29.2
[2018-02-22] MEDS ORDERED: CLINDAMYCIN 150 MG CAP PO STA (18:20)
[2018-02-22] MEDS: SYMBICORT 160-4.5 MCG INHALER INHALATION SCH (19:52)
[2018-02-22] MEDS: METOPROLOL SUCCINATE (ER) 50 MG TAB.ER.24H PO SCH (20:41)
[2018-02-22] MEDS: HYDROcodone/APAP 5-325MG 1 EACH TAB PO PRN (20:41)
[2018-02-22] MEDS ORDERED: ATORVASTATIN 40 MG TAB PO SCH (21:00)
[2018-02-22] MEDS ORDERED: LOSARTAN 25 MG TAB PO SCH (21:00)
--- NOTE | 2018-02-22 23:57 | PCN ---
PROCEDURE NOTE INDICATIONS: This is a 67-year-old female whose LV systolic dysfunction has not improved despite medical treatment for over 3 months. Ejection fraction remains at or below 35%. Underlying left bundle branch block pattern. A biventricular ICD was recommended for heart failure management as well as primary prevention of sudden cardiac . PROCEDURE: Patient was brought to the EP lab in a fasting state. Written informed consent was obtained prior to the procedure. The left shoulder area was prepped and draped as per protocol. 1% lidocaine was used for local anesthesia. A 4 cm incision was made parallel to the deltopectoral groove, 1.5 cm incision medial to it. The incision was carried down to the level of the pectoralis muscle. A subfascial pocket was made. Hemostasis was assured. The left axillary vein was accessed at 3 separate points. This was a difficult access. Two accesses were at the level of the 1st rib and 1 accessed at the level of the 2nd rib. Venous sheaths were placed. The leads were placed in the right heart. The atrial lead was a [employer] model #2088TC, 52 cm length, and serial number [id number]. P wave 4.6 mV. Pacing impedance 510 ohms. Pacing threshold 0.5 V at 0.5 milliseconds, 10 V test negative. This was a screw-in lead in the right atrial appendage. The RV lead was positioned in the RV septum. The lead was positioned in the RV apex. R- waves 11.6 mV. Pacing impedance 660 ohms. Pacing threshold 0.6 V at 0.5 milliseconds, 10 V test negative. The LV lead was positioned in the lateral vein. Coronary sinus venogram was performed. Diminutive anterior and anterolateral veins were noted, a fairly large posterolateral vein was noted, however, this was difficult to access and had to be sub-selected. After sub-selection, the lead was placed. This was a [employer] model #1456Q, 86 cm in length and serial number [id number]. Pacing impedance was 850 ohms, pacing threshold 0.8 V at 0.5 milliseconds, 10 V test negative. All leads were secured to the underlying pectoralis muscle with 2 nonabsorbable sutures. Pocket was irrigated with antibiotic solution. Leads were connected to the generator. [employer] model number [id number] serial #[id number]. Lead and generator were placed in subfascial pocket. The wound was closed in 3 layers and dressed per protocol. RESULT: Successful dual chamber biventricular ICD implanted for underlying left bundle branch block, severe cardiomyopathy that has not improved despite medical treatment for over 3 months. Left ventricular ejection fraction 35% with underlying congestive heart failure, chronic systolic. The patient tolerated the procedure well without any acute complications. The biventricular AICD was programmed. Meter was programmed. MMODL / IJN: [id number] /
[2018-02-23] MEDS: ceFAZolin IN SWFI 2 GM/20 ML SYRINGE IVP SCH ×2 (02:52→08:41)
[2018-02-23] MEDS: HYDROcodone/APAP 5-325MG 1 EACH TAB PO PRN (05:34)
[2018-02-23] MEDS ORDERED: LEVOTHYROXINE 100 MCG TAB PO SCH (06:30)
[2018-02-23] MEDS: SODIUM CHLORIDE 0.9% 1,000 ML IV SCH ×2 (07:36)
[2018-02-23] MEDS: LACTATED RINGERS 1,000 ML IV SCH (07:36)
--- NOTE | 2018-02-23 07:53 | XR ---
EXAMINATION TYPE: XR chest 2V DATE OF EXAM: 02/23/2018 COMPARISON: 07/01/2017 HISTORY: 67-year-old female lead placement check TECHNIQUE: Frontal and lateral views FINDINGS: Left anterior chest wall AICD generator with right atrial, right ventricular, and coronary sinus lead s. Heart upper limits of normal in size. Low lung volumes with crowded vascular markings especially a t the lung bases. Some strandy atelectasis at the right base. No consolidation or pleural effusion se en. No appreciable pneumothorax. IMPRESSION: Left-sided AICD generator with 3 leads. No acute process seen.
[2018-02-23 08:04] VITALS: RESP 18
[2018-02-23 08:06] LABS: Anion Gap 9 mmol/L; Blood Urea Nitrogen 11 mg/dL (7-17); Calcium 9.1 mg/dL (8.4-10.2); Carbon Dioxide 23 mmol/L (22-30); Chloride 109 mmol/L (98-107); Glucose 112 mg/dL (74-99); Potassium 4.2 mmol/L (3.5-5.1); Sodium 141 mmol/L (137-145)
[2018-02-23] MEDS ORDERED: ONDANSETRON 4 MG/2 ML VIAL IVP PRN (08:16)
[2018-02-23] MEDS ORDERED: SODIUM CHLORIDE 0.9% 250 ML IV ONE (08:16)
--- NOTE | 2018-02-23 08:17 | P.DS ---
Providers Attending physician: Satish Fountain Primary care physician: [facility] Hospital Course: Patient complains of being dizzy and lightheaded. Blood pressure 99/56. His mercury Minimal discomfort over the ICD site no chest pain Afebrile 97.7F supine blood pressure 112/70 mmHg, standing up 99/56. His mercury heart rates are normal Breath sounds are clear Heart sounds are normal No lower extremity edema Impression Severe nonischemic cardio myopathy that has not improved despite medical treatment, status post biventricular ICD patient's underlying left bundle branch block at least class II heart failure symptoms with severe LV dysfunction Suggest Change medications to metoprolol 25 mg, succinate, in a.m. Losartan 12.5 mg by mouth in the evening Spironolactone 12.5 mg by mouth every morning Continue atorvastatin Discharge home after completion of IV antibiotics device interrogation and chest x-ray and follow-up in the device clinic in 5 days and follow with Dr. Henderson in 4 weeks Plan - Discharge Summary Discharge Rx Participant: No New Discharge Prescriptions: New Losartan [Cozaar] 12.5 mg PO DAILY #50 tab Metoprolol Succinate [Toprol XL] 25 mg PO DAILY #90 tab Spironolactone [Aldactone] 12.5 mg PO DAILY #50 tablet Discontinued Metoprolol Tartrate [Lopressor] 25 mg PO HS Losartan [Cozaar] 25 mg PO HS No Action Omeprazole 20 mg PO BID Sertraline [Zoloft] 100 mg PO DAILY Budesonide-Formot 160-4.5 Mcg [Symbicort 160-4.5 Mcg Inhaler] 2 puff INHALATION RT-BID Levothyroxine Sodium [Synthroid] 100 mcg PO DAILY Albuterol Sulfate [Proair Hfa] 1 - 2 puff INHALATION RT-QID PRN PRN Reason: asthma symptoms Ascorbic Acid [Vitamin C] 1,000 mg PO HS Calcium Carbonate/Vitamin D3 [Calcium 600-Vit D3 400 Caplet] 2 tab PO HS Atorvastatin [Lipitor] 40 mg PO HS Albuterol Nebulized [Ventolin Nebulized] 2.5 mg INHALATION BID Ubidecarenone [Co Q-10] 100 mg PO HS Discharge Medication List Budesonide-Formot 160-4.5 Mcg [Symbicort 160-4.5 Mcg Inhaler] 2 puff INHALATION RT-BID 04/04/14 [History] Omeprazole 20 mg PO BID 04/04/14 [History] Sertraline [Zoloft] 100 mg PO DAILY 04/04/14 [History] Levothyroxine Sodium [Synthroid] 100 mcg PO DAILY 11/17/14 [History] Albuterol Sulfate [Proair Hfa] 1 - 2 puff INHALATION RT-QID PRN 12/27/14 [ History] Ascorbic Acid [Vitamin C] 1,000 mg PO HS 09/13/17 [History] Calcium Carbonate/Vitamin D3 [Calcium 600-Vit D3 400 Caplet] 2 tab PO HS [History] Albuterol Nebulized [Ventolin Nebulized] 2.5 mg INHALATION BID 02/16/18 [History ] Atorvastatin [Lipitor] 40 mg PO HS 02/16/18 [History] Ubidecarenone [Co Q-10] 100 mg PO HS 02/16/18 [History] Losartan [Cozaar] 12.5 mg PO DAILY #50 tab 02/23/18 [Rx] Metoprolol Succinate [Toprol XL] 25 mg PO DAILY #90 tab 02/23/18 [Rx] Spironolactone [Aldactone] 12.5 mg PO DAILY #50 tablet 02/23/18 [Rx] Follow up Appointment(s)/Referral(s): Satish Fountain MD [STAFF PHYSICIAN] - 1 Week (Device clinic follow-up in 5 days Follow-up with Dr. Henderson in 2-3 months) Activity/Diet/Wound Care/Special Instructions: PATIENT EDUCATION MATERIAL Instructions following a heart rhythm device implant. 1. Keep dressing DRY for 5 DAYS. You may cover the area with Saran or Cling Wrap, prior to a shower. 2. The dressing will be removed in the Device Clinic at [facility]. Absorbable sutures were used to close the wound. 3. Avoid raising the left arm above the shoulder level. 4 week restriction 4. Avoid arm movements, like backscratching, rubbing the head, or pulling on a cord. 4 weeks restriction 5. Gentle range of motion movements of the shoulder, closest to the incision should be performed to avoid a frozen shoulder. (Pendulum exercises of the shoulder) 6. The opposite arm may be used freely. 7. Avoid driving for 7 days. 8. Avoid activities such as golfing, swimming, weed whacking, lifting more than 10 pounds weight, bowling, gymnastics and weight training/lifting. (6 weeks restriction) 9. Activities such as wood chopping with an axe, pull-ups in the gymnasium, power lifting, arc-welding, being close to home induction cooktops will always be a problem. 10. Arm sling is only a reminder not to raise the arm above the head. You do not need to keep the arm completely immobilized. Your free to move the arm and use it and for normal activities. In case of any problems, please call [facility], [place], @ [phone], Attention: Device Clinic Device clinic follow-up in 5 days Follow-up with primary parking meter attendant in 2-3 months Stop metoprolol tartrate start metoprolol succinate 50 mrem in the evening Start spironolactone 25 mg in the morning Discharge Disposition: HOME SELF-CARE
[2018-02-23] MEDS: METOPROLOL SUCCINATE (ER) 50 MG TAB.ER.24H PO SCH (08:21)
[2018-02-23] MEDS: SYMBICORT 160-4.5 MCG INHALER INHALATION SCH (08:21)
[2018-02-23] MEDS: SPIRONOLACTONE 25 MG TAB PO SCH (08:21)
[2018-02-23 11:51] VITALS: BP 130/73; PULSE 73; TEMP 98.2
== END 2018-02-23 12:19 | disposition home or self-care (01) ==
LOC: CATHEP 06:12 → 3OBS 11:00 → CATHEP 02-23 12:19
PROVIDERS: ATTEND Internal Medicine Clinical Cardiac Electrophysiology
DX: I42.0 Dilated cardiomyopathy (principal); Z00.6 Encounter for examination for normal comparison and control in clinical research program; I50.22 Chronic systolic (congestive) heart failure; I44.7 Left bundle-branch block, unspecified; I78.0 Hereditary hemorrhagic telangiectasia; I25.10 Atherosclerotic heart disease of native coronary artery without angina pectoris; I65.23 Occlusion and stenosis of bilateral carotid arteries; Z79.890 Hormone replacement therapy; Z79.51 Long term (current) use of inhaled steroids; Z79.899 Other long term (current) drug therapy; Z88.6 Allergy status to analgesic agent
CPT/HCPCS: 94640 ×2; 33225; 33249; 80048; 71046; C1769 ×5; C1892 ×2; C1730; C1898; C1900; C1777; C1882; J2250; J0690 ×3; J2001; J3010; J0131; J2704; Q9966

== ENCOUNTER 2018-05-24 06:11 | Day surgery (SDC) | payer MEDICARE, BC ==
[2018-05-19 15:13] VITALS: BMI 28.3
[~2018-05-24 06:11] MED LIST changes: +LACTATED RINGERS 1,000 ML IV SCH; +LIDOCAINE 1% 20 ML VIAL (10MG/ML) FOR IV START INTRADERMA PRN; +MIDAZOLAM (PF) 2 MG/2 ML VIAL IV PRN; +SODIUM CHLORIDE 0.9% 1,000 ML IV SCH; -ceFAZolin 1,000 MG in SODIUM CHLORIDE 0.9% IRRIGATIO 250 ML IRRIGATION ONE; -ceFAZolin IN SWFI 2 GM/20 ML SYRINGE IVP ONE
[2018-05-24 06:32] VITALS: RESP 16; TEMP 98.2
[2018-05-24] MEDS ORDERED: SODIUM CHLORIDE 0.9% 1,000 ML IV ONE (06:35)
[2018-05-24] MEDS ORDERED: FAMOTIDINE 20 MG/2 ML VIAL ONE (07:01)
[2018-05-24] MEDS ORDERED: PROPOFOL 10 MG/ML 20 ML VIAL IV ONE (07:12)
[2018-05-24] MEDS ORDERED: fentaNYL (PF) 50 MCG/ML 2 ML AMP ONE (07:12)
[2018-05-24] MEDS ORDERED: MIDAZOLAM 2 MG/2 ML VIAL ONE (07:12)
--- NOTE | 2018-05-24 08:09 | CE ---
CARDIAC ELECTROPHYSIOLOGY REPORT Diya Silva is a 68-year-old female with a history of heart failure, wide QRS cardiomyopathy who underwent a biventricular ICD 3 months back. She was brought in for biventricular ICD testing under anesthesia. She has a [employer] resistor coater [employer]ra [employer]ura MP [id number] CALL MANAGER D, serial #[id number]. The device was interrogated and an atrial pacing threshold 0.75 V at 0.5 milliseconds. P waves 3.1 mV. Pacing impedance 450 ohms. The RV pacing threshold 0.7 V at 0.5 milliseconds. R-waves 9.8 mV and pacing impedance 716. LV pacing impedance was 1.2 V at 0.5 milliseconds. Pacing impedance of 760 ohms. High- voltage impedance 63 ohms. Cinefluoroscopy of the leads was performed. The atrial lead was in the right atrial appendage. RV lead in the posterior lateral LV vein and RV lead screwed in the RV apex. The leads are stable and in stable position. No dislodgement. No fractures. DFT testing was performed under anesthesia a DC fib shock was used to induce ventricular fibrillation. This was adequately and appropriately detected at least sensitivity and successfully internally defibrillated with one drop out. The charge time was 1.5 seconds, shock impedance 63 ohms. No post shock noise. The device then programmed to MADIT RIT programming. DDDR with a short AV delay and LV offset of 40 milliseconds for Bi V pacing. Appropriate antitachycardia pacing and cardioversion defibrillation programmed. Sensitivity at 0.5 mV. RESULT: 1. Normal biventricular ICD function. 2. DFT at or below 10 joules. 3. Leads in right ventricular, right atrial and LV leads in stable position. MMODL / IJN: [id number] /
[2018-05-24 08:29] VITALS: BP 149/75; PULSE 61
== END 2018-05-24 09:11 | disposition home or self-care (01) ==
LOC: CATHEP 06:11
PROVIDERS: ATTEND Internal Medicine Clinical Cardiac Electrophysiology
DX: I42.0 Dilated cardiomyopathy (principal); I11.0 Hypertensive heart disease with heart failure; I50.22 Chronic systolic (congestive) heart failure; I78.0 Hereditary hemorrhagic telangiectasia; I44.7 Left bundle-branch block, unspecified; I25.10 Atherosclerotic heart disease of native coronary artery without angina pectoris; I65.23 Occlusion and stenosis of bilateral carotid arteries; Q25.72 Congenital pulmonary arteriovenous malformation; Q28.2 Arteriovenous malformation of cerebral vessels; J45.909 Unspecified asthma, uncomplicated; E07.9 Disorder of thyroid, unspecified; G25.81 Restless legs syndrome; K21.9 Gastro-esophageal reflux disease without esophagitis; D50.9 Iron deficiency anemia, unspecified; Z86.73 Personal history of transient ischemic attack (TIA), and cerebral infarction without residual deficits; Z79.890 Hormone replacement therapy; Z79.899 Other long term (current) drug therapy; Z88.6 Allergy status to analgesic agent; Z88.8 Allergy status to other drugs, medicaments and biological substances
CPT/HCPCS: 93642; 76000; J2250; J3010; J2704

== ENCOUNTER → 2018-07-22 | Outpatient (CLI) | payer MEDICARE, BC ==
--- NOTE | 2018-07-26 07:38 | MM ---
Reason for exam: screening (asymptomatic). Last mammogram was performed 1 year and 11 months ago. History: Patient is postmenopausal and has history of other cancer at age 66. Took estrogen for 1 year 8 months. Physical Findings: A clinical breast exam by your physician is recommended on an annual basis and results should be correlated with mammographic findings. MG 3D Screening Mammo W/Cad Bilateral CC and MLO view(s) were taken. Prior study comparison: September 03, 2016, bilateral MG 3d screening mammo w/cad. August 20, 2014, bilateral MG screening mammo w CAD. There are scattered fibroglandular densities. No significant changes when compared with prior studies. ASSESSMENT: Benign, BI-RAD 2 RECOMMENDATION: Routine screening mammogram of both breasts in 1 year.
== END | disposition home or self-care (01) ==
LOC: RADMAMWWP 13:10
PROVIDERS: ATTEND Internal Medicine Geriatric Medicine
DX: Z12.31 Encounter for screening mammogram for malignant neoplasm of breast (principal)
CPT/HCPCS: 77063; 77067

== ENCOUNTER → 2018-07-22 | Outpatient (CLI) | payer MEDICARE, BC ==
[~2018-07-22] MED LIST changes: +DENOSUMAB 60 MG/ML 1 ML SYRINGE SQ ONE; -LACTATED RINGERS 1,000 ML IV SCH; -LIDOCAINE 1% 20 ML VIAL (10MG/ML) FOR IV START INTRADERMA PRN; -MIDAZOLAM (PF) 2 MG/2 ML VIAL IV PRN; -SODIUM CHLORIDE 0.9% 1,000 ML IV SCH
[2018-07-22 14:45] VITALS: BP 178/89; PULSE 80; RESP 16; TEMP 98.1
== END | disposition home or self-care (01) ==
LOC: PROCWHC3 13:37
PROVIDERS: ATTEND Internal Medicine Geriatric Medicine
DX: M81.0 Age-related osteoporosis without current pathological fracture (principal)
CPT/HCPCS: 96372; J0897

== ENCOUNTER → 2018-10-17 | Outpatient (CLI) | payer MEDICARE, BC ==
--- NOTE | 2018-10-17 15:41 | BD ---
EXAMINATION TYPE: Axial Bone Density DATE OF EXAM: 10/17/2018 COMPARISON: 10.14.2016 CLINICAL HISTORY: 68 YR OLD FEMALE....ICD-10 CODE: M81.0M AGE RELATED OSTEOPOROSIS Height: 59.2 Weight: 145 FRAX RISK QUESTIONS: Secondary Osteoporosis: YES 3. Menopause before 45: YES AT 37 YRS OLD RISK FACTORS HISTORY OF: Family History of Osteoporosis: YES, MOTHER NO BROKEN HIP Postmenopausal woman: NATURAL AT AGE 37 YRS OLD Lost more than 2 inches in height since high school: YES MEDICATIONS: Prednisone or other steroids: ASTHMA INHALERS FOR MANY YRS, SYMBACORT, AND NEBULIZER Thyroid Medications: YES, SYNTHROID, FOR ABOUT 25 YRS Osteoporosis Medications: YES, PROLIA INJECTIONS, OSTEOPOROSIS MEDS FOR ABOUT 25 YRS Additional Medications: ZOLOFT, CALCIUM AND VIT D, OMEPRAZOLE, STATIN FOR CHOLESTEROL Additional History: ASTHMA, CHOLESTEROL, REFLUX , ANXIETY, BLOOD VESSEL DISORDER. EXAM MEASUREMENTS: Bone mineral densitometry was performed using the [employer] System. Bone mineral density as measured about the Lumbar spine is: ----- L1-L4(G/cm2): 1.021 T Score Values are as follows: ----- L1: -1.8 ----- L2: -2.2 ----- L3: -1.8 ----- L4: 0.0 ----- L1-L4: -1.3 Bone mineral density has: Increased 3.3% since study of: 10.14.2016 Bone mineral density about the R hip (g/cm2): 0.856 Bone mineral density about the L hip (g/cm2): 0.865 T Score values are as follows: -----R Neck: -1.7 -----L Neck: -1.9 -----R Total: -1.2 -----L Total: -1.1 Bone mineral density has: Decreased -1.3% since study of: 10.14.2016 FRAX%s: THERE IS A 11.2% CHANCE FOR A MAJOR OSTEOPOROTIC FX AND A 21.% FOR HIP....PROBABILITY OF FX IN 10 YRS TIME IMPRESSION: Osteopenia. NOTE: T-SCORE=SD OF THE YOUNG ADULT MEAN.
== END | disposition home or self-care (01) ==
LOC: RADBDWWP 13:15
PROVIDERS: ATTEND Internal Medicine Geriatric Medicine
DX: M85.80 Other specified disorders of bone density and structure, unspecified site (principal)
CPT/HCPCS: 77080

== ENCOUNTER → 2019-01-27 | Outpatient (CLI) | payer MEDICARE, BC ==
[~2019-01-27] MED LIST changes: +DENOSUMAB 60 MG/ML 1 ML SYRINGE SQ NR; -DENOSUMAB 60 MG/ML 1 ML SYRINGE SQ ONE
[2019-01-27 13:45] VITALS: BP 146/74; PULSE 76; RESP 16; TEMP 98.3
== END ==
LOC: PROCWHC3 13:28
PROVIDERS: ATTEND Internal Medicine Geriatric Medicine
DX: M81.0 Age-related osteoporosis without current pathological fracture (principal)
CPT/HCPCS: 96372; J0897

== ENCOUNTER 2019-05-25 18:36 | Emergency (ER) | payer MEDICARE, BC ==
[2019-05-25 18:41] VITALS: TEMP 97.5
[2019-05-25 19:02] VITALS: RESP 18
--- NOTE | 2019-05-25 19:08 | ED ---
Neuro HPI - General Chief Complaint: Neuro Symptoms/Deficit Stated Complaint: Arm numbness Time Seen by Provider: 05/25/19 18:47 Source: patient, RN notes reviewed, old records reviewed Mode of arrival: ambulatory Limitations: no limitations - History of Present Illness Is the patient presenting with stroke symptoms?: No -: hour(s), days(s) Initial Comments: This is a 69-year-old female presented with right arm numbness and tingling. Patient has no headaches. No trauma. No shortness of breath no diaphoresis. Patient has history of similar complaints she has had significant surgery of right rotator cuff which has not healed well. Patient denies dropping anything a weakness in her right hand or arm. No decrease in sensation. No other complaints no facial changes or leg changes. No history of CVA no history of [place] Location: right arm (Paresthesia) History of same: Yes Place: home Severity: mild Quality: numb, tingling Improves With: none Worsens With: none On Anticoagulants: No Context: gradual onset Associated Symptoms: denies other symptoms - Related Data Home Medications: Home Medications Medication Instructions Recorded Confirmed Budesonide-Formot 160-4.5 Mcg 2 puff INHALATION RT-BID 04/04/14 05/25/19 [Symbicort 160-4.5 Mcg Inhaler] Omeprazole 20 mg PO BID 04/04/14 05/25/19 Sertraline [Zoloft] 100 mg PO DAILY 04/04/14 05/25/19 Levothyroxine Sodium [Synthroid] 100 mcg PO DAILY 11/17/14 05/25/19 Albuterol Sulfate [Proair Hfa] 1 - 2 puff INHALATION RT-QID PRN 12/27/14 05/25/19 Albuterol Nebulized [Ventolin 2.5 mg INHALATION RT-BID 02/16/18 05/25/19 Nebulized] Atorvastatin [Lipitor] 40 mg PO DAILY 02/16/18 05/25/19 Cephalexin [Keflex] 500 mg PO TID 05/25/19 05/25/19 Metoprolol Succinate [Toprol XL] 50 mg PO BID 05/25/19 05/25/19 Previous Rx's Medication Instructions Recorded Losartan [Cozaar] 12.5 mg PO DAILY #50 tab 02/23/18 Spironolactone [Aldactone] 12.5 mg PO DAILY #50 tablet 02/23/18 Allergies/Adverse Reactions: Allergies Allergy/AdvReac Type Severity Reaction Status Date / Time aspirin AdvReac BLEEDING Verified 05/25/19 21:32 ibuprofen AdvReac BLEEDING Verified 05/25/19 21:32 BLOOD THINNERS AdvReac BLEEDING Uncoded 05/25/19 18:41 Review of Systems ROS Statement: Those systems with pertinent positive or pertinent negative responses have been documented in the HPI. ROS Other: All systems not noted in ROS Statement are negative. General Exam - General Exam Comments Initial Comments: NIH of 0, no focal neurological finding Limitations: no limitations General appearance: alert, in no apparent distress Head exam: Present: atraumatic, normocephalic, normal inspection Eye exam: Present: normal appearance, PERRL, EOMI. Absent: scleral icterus, conjunctival injection, periorbital swelling ENT exam: Present: normal exam, mucous membranes moist Neck exam: Present: normal inspection. Absent: tenderness, meningismus, lymphadenopathy Respiratory exam: Present: normal lung sounds bilaterally. Absent: respiratory distress, wheezes, rales, rhonchi, stridor Cardiovascular Exam: Present: regular rate, normal rhythm, normal heart sounds. Absent: systolic murmur, diastolic murmur, rubs, gallop, clicks GI/Abdominal exam: Present: soft, normal bowel sounds. Absent: distended, tenderness, guarding, rebound, rigid Extremities exam: Present: normal inspection, full ROM, normal capillary refill. Absent: tenderness, pedal edema, joint swelling, calf tenderness Back exam: Present: normal inspection Neurological exam: Present: alert, oriented X3, CN II-XII intact Psychiatric exam: Present: normal affect, normal mood Skin exam: Present: warm, dry, intact, normal color. Absent: rash Stroke MDM - Lab Data Result diagrams: 05/25/19 18:59 05/25/19 18:59 Lab Results 05/25/19 05/25/19 05/25/19 Range/Units 18:59 18:59 18:59 WBC 11.2 H (3.8-10.6) k/uL RBC 4.79 (3.80-5.40) m/uL Hgb 14.6 (11.4-16.0) gm/dL Hct 44.3 (34.0-46.0) % MCV 92.5 (80.0-100.0) fL MCH 30.5 (25.0-35.0) pg MCHC 32.9 (31.0-37.0) g/dL RDW 12.3 (11.5-15.5) % Plt Count 308 (150-450) k/uL Neutrophils % 77 % Lymphocytes % 12 % Monocytes % 7 % Eosinophils % 2 % Basophils % 1 % Neutrophils # 8.6 H (1.3-7.7) k/uL Lymphocytes # 1.3 (1.0-4.8) k/uL Monocytes # 0.8 (0-1.0) k/uL Eosinophils # 0.2 (0-0.7) k/uL Basophils # 0.1 (0-0.2) k/uL PT 10.3 (9.0-12.0) sec INR 1.0 (<1.2) APTT 25.1 (22.0-30.0) sec Sodium 138 (137-145) mmol/L Potassium 4.8 (3.5-5.1) mmol/L Chloride 106 (98-107) mmol/L Carbon Dioxide 21 L (22-30) mmol/L Anion Gap 11 mmol/L BUN 18 H (7-17) mg/dL Creatinine 0.69 (0.52-1.04) mg/dL Est GFR (CKD-EPI)AfAm >90 (>60 ml/min/1.73 sqM) Est GFR (CKD-EPI)NonAf 88 (>60 ml/min/1.73 sqM) Glucose 85 (74-99) mg/dL Calcium 10.1 (8.4-10.2) mg/dL Total Bilirubin 0.6 (0.2-1.3) mg/dL AST 40 H (14-36) U/L ALT 46 H (4-34) U/L Alkaline Phosphatase 83 (38-126) U/L Creatine Kinase 119 (30-135) U/L Troponin I (0.000-0.034) ng/mL Total Protein 7.5 (6.3-8.2) g/dL Albumin 4.4 (3.5-5.0) g/dL Urine Color Urine Appearance (Clear) Urine pH (5.0-8.0) Ur Specific [place] (1.001-1.035) Urine Protein (Negative) Urine Glucose (UA) (Negative) Urine Ketones (Negative) Urine Blood (Negative) Urine Nitrite (Negative) Urine Bilirubin (Negative) Urine Urobilinogen (<2.0) mg/dL Ur Leukocyte Esterase (Negative) 05/25/19 05/25/19 Range/Units 18:59 20:36 WBC (3.8-10.6) k/uL RBC (3.80-5.40) m/uL Hgb (11.4-16.0) gm/dL Hct (34.0-46.0) % MCV (80.0-100.0) fL MCH (25.0-35.0) pg MCHC (31.0-37.0) g/dL RDW (11.5-15.5) % Plt Count (150-450) k/uL Neutrophils % % Lymphocytes % % Monocytes % % Eosinophils % % Basophils % % Neutrophils # (1.3-7.7) k/uL Lymphocytes # (1.0-4.8) k/uL Monocytes # (0-1.0) k/uL Eosinophils # (0-0.7) k/uL Basophils # (0-0.2) k/uL PT (9.0-12.0) sec INR (<1.2) APTT (22.0-30.0) sec Sodium (137-145) mmol/L Potassium (3.5-5.1) mmol/L Chloride (98-107) mmol/L Carbon Dioxide (22-30) mmol/L Anion Gap mmol/L BUN (7-17) mg/dL Creatinine (0.52-1.04) mg/dL Est GFR (CKD-EPI)AfAm (>60 ml/min/1.73 sqM) Est GFR (CKD-EPI)NonAf (>60 ml/min/1.73 sqM) Glucose (74-99) mg/dL Calcium (8.4-10.2) mg/dL Total Bilirubin (0.2-1.3) mg/dL AST (14-36) U/L ALT (4-34) U/L Alkaline Phosphatase (38-126) U/L Creatine Kinase (30-135) U/L Troponin I <0.012 (0.000-0.034) ng/mL Total Protein (6.3-8.2) g/dL Albumin (3.5-5.0) g/dL Urine Color Light Yellow Urine Appearance Clear (Clear) Urine pH 6.0 (5.0-8.0) Ur Specific [place] 1.014 (1.001-1.035) Urine Protein Negative (Negative) Urine Glucose (UA) Negative (Negative) Urine Ketones Negative (Negative) Urine Blood Negative (Negative) Urine Nitrite Negative (Negative) Urine Bilirubin Negative (Negative) Urine Urobilinogen <2.0 (<2.0) mg/dL Ur Leukocyte Esterase Negative (Negative) - NIH Stroke Scale 1a. Level of Consciousness: (0) alert 1b. LOC Questions: (0) answers correctly 1c. LOC Commands: (0) performs tasks correctly 2. Best Gaze: (0) normal 3. Visual: (0) no visual loss 4. Facial Palsy: (0) normal symmetrical movement 5a. Motor Arm Left: (0) no drift 5b. Motor Arm Right: (0) no drift 6a. Motor Leg Left: (0) no drift 6b. Motor Leg Right: (0) no drift 7. Limb Ataxia: (0) absent 8. Sensory: (0) normal 9. Best Language: (0) no aphasia 10. Dysarthria: (0) normal 11. Extinction/Inattention: (0) no abnormality - Thrombolytic Inclusion/Exclusion Thrombolytic Exclusion Criteria: Symptom Onset > 4.5 Hours - Medical Decision Making 29 female with right arm tingling and numbness. No deficit found, CT and x-rays normal laboratory normal patient states she feels good for discharge home - Radiology Data Radiology results: report reviewed (CT brain CT had neck as well as chest x-ray showed no significant acute disease), image reviewed - EKG Data -: EKG Interpreted by Me (EKG shows patient's room air 69, QRS 102, QTc 456) Past Medical History Past Medical History: Asthma, Blood Disorder, CVA/TIA, GERD/Reflux, GI Bleed, Musculoskeletal Disorder, Thyroid Disorder Additional Past Medical History / Comment(s): SEE DR DOTSON H&P,Hereditary hemorrhagic telangiectasia, Iron deficiency anemia, TIAs per MRIs, GI bleeds, restless leg syndrome History of Any Multi-Drug Resistant Organisms: None Reported Past Surgical History: AICD, Orthopedic Surgery Additional Past Surgical History / Comment(s): acromioplasty excision distal clavical rotator cuff repair R shoulder. PH study esophageal impendance function test, bilateral cataract, EGD, bone spurs sx in feet/hands, coiling of the pulmonary AV malformation Past Anesthesia/Blood Transfusion Reactions: No Reported Reaction Type of Cardiac Device: AICD Device Placement Date:: 02-22-18 Past Psychological History: Anxiety Smoking Status: Former smoker Past Alcohol Use History: None Reported Past Drug Use History: None Reported - Past Family History Mother Family Medical History: Cancer Additional Family Medical History / Comment(s): Mother is 92 yrs old. She has vision problem. Father Family Medical History: Coronary Artery Disease (CAD), Diabetes Mellitus Additional Family Medical History / Comment(s): Father at 66 yrs Sister(s) Family Medical History: Blood Disorder Additional Family Medical History / Comment(s): Hemorrhagic Telangiectasia Course Vital Signs 05/25/19 05/25/19 05/25/19 18:39 19:01 21:25 Temperature 97.5 F L Pulse Rate 73 76 64 Respiratory 20 18 18 Rate Blood Pressure 156/82 140/75 106/56 O2 Sat by Pulse 99 94 L 98 Oximetry - Reevaluation(s) Reevaluation #1: 05/25/19 22:14 Medical records reviewed Reevaluation #2: 05/25/19 22:14 Patient with re tested neuro exam which is negative 05/25/19 22:14 Disposition Clinical Impression: Paresthesia, Arm paresthesia, right Disposition: ADMITTED IP TO THIS [facility] Condition: Fair Is patient prescribed a controlled substance at d/c from ED?: No Referrals: Shukri Barlow MD [Primary Care Provider] - 1-2 days
[2019-05-25] MEDS ORDERED: SODIUM CHLORIDE 0.9% 1,000 ML IV STA (19:15)
[2019-05-25 19:28] LABS: Basophils # (A) 0.1 k/uL (0-0.2); Basophils % (A) 1 %; Eosinophils # (A) 0.2 k/uL (0-0.7); Eosinophils % (A) 2 %; HCT 44.3 % (34.0-46.0); HGB 14.6 gm/dL (11.4-16.0); Lymphocytes # (A) 1.3 k/uL (1.0-4.8); Lymphocytes % (A) 12 %; MCH 30.5 pg (25.0-35.0); MCHC 32.9 g/dL (31.0-37.0); MCV 92.5 fL (80.0-100.0); Mean Platelet Volume 8.5; Monocytes # (A) 0.8 k/uL (0-1.0); Monocytes % (A) 7 %; Neutrophils # (A) 8.6 k/uL (1.3-7.7); Neutrophils % (A) 77 %; Platelet Count 308 k/uL (150-450); RBC 4.79 m/uL (3.80-5.40); RDW 12.3 % (11.5-15.5); WBC 11.2 k/uL (3.8-10.6)
[2019-05-25 19:33] LABS: ALT 46 U/L (4-34); AST 40 U/L (14-36); African American GFR (CKD) >90 (>60 ml/min/1.73 sqM); Albumin 4.4 g/dL (3.5-5.0); Alkaline Phosphatase 83 U/L (38-126); Anion Gap 11 mmol/L; Blood Urea Nitrogen 18 mg/dL (7-17); Calcium 10.1 mg/dL (8.4-10.2); Carbon Dioxide 21 mmol/L (22-30); Chloride 106 mmol/L (98-107); Creatine Kinase 119 U/L (30-135); Glucose 85 mg/dL (74-99); Non-African American GFR(CKD) 88 (>60 ml/min/1.73 sqM); Potassium 4.8 mmol/L (3.5-5.1); Sodium 138 mmol/L (137-145); Total Bilirubin 0.6 mg/dL (0.2-1.3); Total Protein 7.5 g/dL (6.3-8.2)
[2019-05-25 19:37] LABS: Partial Thromboplastin Time 25.1 sec (22.0-30.0); Prothrombin Time 10.3 sec (9.0-12.0)
[2019-05-25 20:51] LABS: Appearance,Urine Clear (Clear); Bilirubin,Urine Negative (Negative); Blood,Urine Negative (Negative); Color,Urine Light Yellow; Glucose,Urine (UA) Negative (Negative); Ketones,Urine Negative (Negative); Leukocyte Esterase,Urine Negative (Negative); Nitrite,Urine Negative (Negative); Protein,Urine Negative (Negative); Specific Gravity,Urine 1.014 (1.001-1.035); Urobilinogen,Urine <2.0 mg/dL (<2.0)
--- NOTE | 2019-05-25 21:07 | CT ---
EXAMINATION TYPE: CT brain wo con for TPA DATE OF EXAM: 05/25/2019 COMPARISON: HISTORY: Right arm numbness. CT DLP: 1098.8 mGycm Automated exposure control for dose reduction was used. Ventricles have normal size. There is no mass effect nor midline shift. There is no sign of intracran ial hemorrhage. Calvarium is intact. IMPRESSION: Negative head CT scan. No change compared to 09/15/2017. There is small area of left internal capsule c hronic ischemia.
--- NOTE | 2019-05-25 21:09 | XR ---
EXAMINATION TYPE: XR chest 2V DATE OF EXAM: 05/25/2019 COMPARISON: 02/23/2018 HISTORY: Placement TECHNIQUE: 2 views FINDINGS: There is a mild infiltrate in the right lower lobe. Heart size is normal. There is no heart failure. There is a left axillary pacemaker. There is no pleural effusion. Pacemaker wires appear in tact. IMPRESSION: There is a mild infiltrate in the right lower lobe unchanged and consistent with scarring . No heart failure seen.
[2019-05-25 21:26] VITALS: BP 106/56; PULSE 64
--- NOTE | 2019-05-25 21:28 | CT ---
EXAMINATION TYPE: CT angio head neck DATE OF EXAM: 05/25/2019 COMPARISON: None HISTORY: Right arm numbness. CT DLP: 484.8 mGycm Automated exposure control for dose reduction was used. CONTRAST: Performed with IV Contrast, patient injected with 65ml mL of Isovue 370. There are 3-D post processed images. There is normal branching pattern of the great vessels on the aortic arch. There is arterial flow in both vertebral arteries which are fairly symmetric. There is arterial flow in the common internal and external carotid arteries bilaterally. There is no evidence of carotid or vertebral artery aneurysm or dissection. There is some plaque formation at both carotid artery bifurc ations. There is approximate 30% stenosis at the origins of both internal carotid arteries. There is arterial flow in the anterior middle and posterior cerebral arteries. There is arterial flow in the vertebrobasilar artery system. I see no evidence of hemodynamic stenosis. There is no sign of intracranial aneurysm or neovascularity. There is normal contrast opacification of the venous sinuse s. IMPRESSION: Negative CT angiogram of the brain. Minimal plaque at the carotid artery bifurcations and less than 30% stenosis of the proximal internal carotid arteries.
== END 2019-05-25 22:20 | disposition other institution (70) ==
LOC: EC 18:36
DX: R20.2 Paresthesia of skin (principal); R20.0 Anesthesia of skin; J45.909 Unspecified asthma, uncomplicated; F41.9 Anxiety disorder, unspecified; K21.9 Gastro-esophageal reflux disease without esophagitis; G25.81 Restless legs syndrome; Z79.51 Long term (current) use of inhaled steroids; Z79.890 Hormone replacement therapy; Z79.899 Other long term (current) drug therapy; Z88.6 Allergy status to analgesic agent; Z88.8 Allergy status to other drugs, medicaments and biological substances; Z86.73 Personal history of transient ischemic attack (TIA), and cerebral infarction without residual deficits; Z87.891 Personal history of nicotine dependence; Z95.810 Presence of automatic (implantable) cardiac defibrillator; Z87.19 Personal history of other diseases of the digestive system
CPT/HCPCS: 99285; 96360; 96361; 36415; 93005; 80053; 82550; 84484; 85025; 85610; 85730; 81003; 71046; 70496; 70450; 70498; Q9967

== ENCOUNTER → 2019-08-15 | Outpatient (CLI) | payer MEDICARE, BC ==
[~2019-08-15] MED LIST changes: -DENOSUMAB 60 MG/ML 1 ML SYRINGE SQ NR; +DENOSUMAB 60 MG/ML 1 ML SYRINGE SQ ONE
[2019-08-15 11:07] VITALS: BP 144/73; PULSE 71; RESP 16; TEMP 97.9
== END | disposition home or self-care (01) ==
LOC: PROCWHC3 10:53
PROVIDERS: ATTEND Internal Medicine Geriatric Medicine
DX: M81.0 Age-related osteoporosis without current pathological fracture (principal)
CPT/HCPCS: 96372; J0897

== ENCOUNTER → 2020-02-26 | Outpatient (CLI) | payer MEDICARE, BC ==
[2020-02-26 14:33] VITALS: BP 132/67; PULSE 67; RESP 16; TEMP 98.4
== END | disposition home or self-care (01) ==
LOC: PROCWHC3 14:19
PROVIDERS: ATTEND Internal Medicine Geriatric Medicine
DX: M81.0 Age-related osteoporosis without current pathological fracture (principal)
CPT/HCPCS: 96372; J0897

== ENCOUNTER → 2020-08-14 | Outpatient (CLI) | payer MEDICARE, BC ==
--- NOTE | 2020-08-14 08:49 | MM ---
Reason for exam: clinical finding. Last mammogram was performed 2 years and 1 month ago. History: Patient is postmenopausal and has history of other cancer at age 66. Took estrogen for 1 year 8 months. Indicated problem(s): pain in both breasts. Physical Findings: Nurse did not find any significant physical abnormalities on exam. MG 3D Diag Mammo W/Cad MAMTA Bilateral CC and MLO view(s) were taken. Prior study comparison: July 22, 2018, bilateral MG 3d screening mammo w/cad. September 03, 2016, bilateral MG 3d screening mammo w/cad. There are scattered fibroglandular densities. Generator device overlies the left pectoralis muscle. No significant new findings when compared with previous films. These results were verbally communicated with the patient and result sheet given to the patient on 08/14/20. ASSESSMENT: Negative, BI-RAD 1 RECOMMENDATION: Routine screening mammogram of both breasts in 1 year. Manage on a clinical basis with regard to right breast pain.
== END ==
LOC: RADMAMWWP 07:04
PROVIDERS: ATTEND Obstetrics & Gynecology
DX: N64.4 Mastodynia (principal); Z78.0 Asymptomatic menopausal state
CPT/HCPCS: 77066; G0279; 77062

== ENCOUNTER → 2020-08-30 | Outpatient (CLI) | payer MEDICARE, BC ==
[~2020-08-30] MED LIST changes: +DENOSUMAB 60 MG/ML 1 ML SYRINGE SQ NR; -DENOSUMAB 60 MG/ML 1 ML SYRINGE SQ ONE
[2020-08-30 13:19] VITALS: BP 128/71; PULSE 72; RESP 16; TEMP 98.7
== END ==
LOC: PROCWHC3 13:15
PROVIDERS: ATTEND Internal Medicine Geriatric Medicine
DX: M81.0 Age-related osteoporosis without current pathological fracture (principal)
CPT/HCPCS: 96372; J0897

== ENCOUNTER → 2021-06-10 | Outpatient (CLI) | payer MEDICARE, BC ==
--- NOTE | 2021-06-10 11:36 | BD ---
EXAMINATION TYPE: Axial Bone Density DATE OF EXAM: 06/10/2021 COMPARISON: 10.17.2018 CLINICAL HISTORY: 71 YR OLD FEMALE....ICD-10 CODE: M81.0 OSTEOPOROSIS Height: 59.1 Weight: 150 FRAX RISK QUESTIONS: Family History (Parent hip fracture): YES, NO FX Glucocorticoids (More than 3mos): YES (Ex: prednisone, prednisolone, methylprednisolone, dexamethasone, and hydrocortisone). Secondary Osteoporosis: YES 3. Menopause before 45: YES RISK FACTORS HISTORY OF: Family History of Osteoporosis: YES, MOTHER, NO FX Postmenopausal woman: YES, AT AGE 37, NATURAL Take estrogen and/or progesterone medications: YES, FOR ABOUT 5-8 YRS, Lost more than 2 inches in height since high school: YES Hyperparathyroidism: NO Adrenal Insufficiency: NO MEDICATIONS: Prednisone or other steroids: YES, SYMBICORT, FOR COPD How Long: FOR ABOUT 10 YRS Thyroid Medications: YES, SYNTHROID FOR ABOUT 26 YRS Osteoporosis Medications: YES, PROLIA, FOR ABOUT 5 YRS Additional Medications: CALCIUM, VIT D, BP MEDS, ZOLOFT AND XANAX, REFLUX MEDS, STATIN FOR CHOLESTERO L, , Additional History: COPD, ANXIETY, REFLUX, CHOLESTEROL, THYROID, EXAM MEASUREMENTS: Bone mineral densitometry was performed using the [employer] System. Bone mineral density as measured about the Lumbar spine is: ----- L1-L4(G/cm2): 0.971 T Score Values are as follows: ----- L1: -1.5 ----- L2: -2.3 ----- L3: -2.3 ----- L4: -1.1 ----- L1-L4: -1.7 Bone mineral density has: Decreased -7.1% since study of: 10.17.2018 Bone mineral density about the R hip (g/cm2): 0.861 Bone mineral density about the L hip (g/cm2): 0.861 T Score values are as follows: -----R Neck: -1.7 -----L Neck: -1.8 -----R Total: -1.2 -----L Total: -1.2 Bone mineral density has: Increased 0.1% since study of: 10.17.2018 FRAX%s: THERE IS A 17.6% CHANCE FOR A MAJOR OSTEOPOROTIC FX AND A 4.1% FOR HIP.....PROBABILITY FOR FX IN 10 YRS TIME IMPRESSION: Osteopenia NOTE: T-SCORE=SD OF THE YOUNG ADULT MEAN.
== END | disposition home or self-care (01) ==
LOC: RADBDWWP 10:33
PROVIDERS: ATTEND Internal Medicine Geriatric Medicine
DX: M81.0 Age-related osteoporosis without current pathological fracture (principal); M85.80 Other specified disorders of bone density and structure, unspecified site
CPT/HCPCS: 77080

== ENCOUNTER → 2021-12-16 | Outpatient (CLI) | payer MEDICARE, BC ==
[2021-12-16 15:12] LABS: Magnesium 2.1 mg/dL (1.5-2.4); T4, Free (Free Thyroxine) 1.37 ng/dL (0.800-1.800)
[2021-12-17 12:01] LABS: Zinc, Serum 70 ug/dL (60-130)
== END | disposition home or self-care (01) ==
LOC: LABWHC1 09:15
PROVIDERS: ATTEND Internal Medicine Hematology & Oncology
DX: I78.0 Hereditary hemorrhagic telangiectasia (principal); D51.9 Vitamin B12 deficiency anemia, unspecified; D51.0 Vitamin B12 deficiency anemia due to intrinsic factor deficiency; D50.8 Other iron deficiency anemias
CPT/HCPCS: 36415; 82607; 83735; 84255; 84432; 84439; 84443; 84481; 84630; 85652; 86800

== ENCOUNTER → 2022-01-15 | Outpatient (CLI) | payer MEDICARE, BC ==
[2022-01-15 10:51] LABS: ALT 28 U/L (8-44); AST 22 U/L (13-35); African American GFR (CKD) 84.8 (60.0-200.0); Albumin/Globulin Ratio 1.38 (1.60-3.17); Alkaline Phosphatase 87 U/L (41-126); BUN/Creat Ratio 11.63 Ratio (12.00-20.00); Blood Urea Nitrogen 9.3 mg/dL (9.0-27.0); Calcium 9.2 mg/dL (8.7-10.3); Carbon Dioxide 23.7 mmol/L (20.0-27.5); Chloride 110 mmol/L (96-109); Chol/HDL Ratio 2.64 Ratio; Globulin 2.9 g/dL (1.6-3.3); Glucose 101 mg/dL (70-110); LDL Cholesterol,Calculated 59.3 mg/dL (0.0-131.0); Non-African American GFR(CKD) 73.1 (60.0-200.0); Potassium 4.3 mmol/L (3.5-5.5); Sodium 144 mmol/L (135-145); Total Protein 6.9 g/dL (6.2-8.2); VLDL Calculation 12.18 mg/dL (5.00-40.00)
== END | disposition home or self-care (01) ==
LOC: LABWHC1 07:32
PROVIDERS: ATTEND Internal Medicine Clinical Cardiac Electrophysiology
DX: I25.10 Atherosclerotic heart disease of native coronary artery without angina pectoris (principal); I10 Essential (primary) hypertension; E78.5 Hyperlipidemia, unspecified
CPT/HCPCS: 36415; 80053; 80061

== ENCOUNTER → 2022-01-26 | Outpatient (CLI) | payer MEDICARE, BC ==
[2022-01-26 11:24] VITALS: BP 146/86; PULSE 76; RESP 16; TEMP 98.1
== END | disposition home or self-care (01) ==
LOC: PROCWHC3 11:02
PROVIDERS: ATTEND Internal Medicine Geriatric Medicine
DX: M81.0 Age-related osteoporosis without current pathological fracture (principal)
CPT/HCPCS: 96372; J0897

== ENCOUNTER → 2022-06-29 | Outpatient (CLI) | payer MEDICARE, BC ==
[2022-06-29 14:56] LABS: Basophils % (A) 1.3 %; Eosinophils # (A) 0.17 X 10*3/uL (0.04-0.35); Eosinophils % (A) 2.3 %; HCT 45.9 % (37.2-46.3); HGB 13.8 g/dL (12.0-15.0); Immature Grans, Automated 0.7 %; Lymphocytes # (A) 1.21 X 10*3/uL (0.90-5.00); Lymphocytes % (A) 16.3 %; MCH 30.5 pg (27.0-32.0); MCHC 30.1 g/dL (32.0-37.0); MCV 101.5 fL (80.0-97.0); Monocytes # (A) 0.61 X 10*3/uL (0.20-1.00); Monocytes % (A) 8.2 %; NRBC Per 100 WBC 0 /100 WBCS (0.0-0.0); Neutrophils # (A) 5.29 X 10*3/uL (1.80-7.70); Neutrophils % (A) 71.2 %; Platelet Count 255 X 10*3/uL (140-440); RBC 4.52 X 10*6/uL (4.10-5.20); RDW 15.3 % (11.5-14.5); WBC 7.43 X 10*3/uL (4.50-10.00)
[2022-06-29 14:59] LABS: ALT 31 U/L (8-44); AST 23 U/L (13-35); African American GFR (CKD) 89.9 (60.0-200.0); Albumin 4.1 g/dL (3.8-4.9); Alkaline Phosphatase 110 U/L (41-126); BUN/Creat Ratio 18.73 Ratio (12.00-20.00); Blood Urea Nitrogen 14.2 mg/dL (9.0-27.0); Calcium 9.2 mg/dL (8.7-10.3); Carbon Dioxide 25.2 mmol/L (20.0-27.5); Chloride 105 mmol/L (96-109); Chol/HDL Ratio 2.62 Ratio; Globulin 2.9 g/dL (1.6-3.3); Glucose 95 mg/dL (70-110); LDL Cholesterol,Calculated 58.1 mg/dL (0.0-131.0); Non-African American GFR(CKD) 77.5 (60.0-200.0); Potassium 4.3 mmol/L (3.5-5.5); Sodium 141 mmol/L (135-145); Total Protein 6.9 g/dL (6.2-8.2); VLDL Calculation 14.84 mg/dL (5.00-40.00)
== END ==
LOC: LABWHC1 08:28
PROVIDERS: ATTEND Nurse Practitioner Family
DX: I78.0 Hereditary hemorrhagic telangiectasia (principal); E03.9 Hypothyroidism, unspecified; I25.10 Atherosclerotic heart disease of native coronary artery without angina pectoris; R79.9 Abnormal finding of blood chemistry, unspecified
CPT/HCPCS: 36415; 80053; 80061; 83036; 84439; 84443; 85025

== ENCOUNTER → 2023-07-13 | Outpatient (CLI) | payer MEDICARE, BC ==
--- NOTE | 2023-07-13 12:40 | BD ---
EXAMINATION TYPE: Axial Bone Density DATE OF EXAM: 07/13/2023 CLINICAL HISTORY: 73 years old Female. ICD-10 CODE: M81.0 OSTEOPOROSIS Height: 4ft 11in Weight: 145.5 FRAX RISK QUESTIONS: Alcohol (3 or more units per day): no Family History (Parent hip fracture): no Glucocorticoids (More than 3mos): yes (Ex: prednisone, prednisolone, methylprednisolone, dexamethasone, and hydrocortisone). History of Fracture in Adulthood: no Secondary Osteoporosis: 1. Type 1 Diabetes: no 2. Hyperthyroidism: no 3. Menopause before 45: yes 4. Malnutrition: no 5. Chronic liver disease: no Rheumatoid Arthritis: no Current Tobacco Use: no RISK FACTORS HISTORY OF: Surgery to Spine/Hip(right/left)/Wrist (right/left): no MEDICATIONS: Thyroid Medications: levothyroxine How Long: since 1997 EXAM MEASUREMENTS: Bone mineral densitometry was performed using the [employer] System. Bone mineral density as measured about the Lumbar spine is: ----- L1-L4(G/cm2): 1.083 T Score Values are as follows: ----- L1: -0.9 ----- L2: -17 ----- L3: -0.6 ----- L4: -0.4 ----- L1-L4: -0.8 Z Score Values are as follows: ----- L1: 0.8 ----- L2: 0.0 ----- L3: 1.1 ----- L4: 1.3 ----- L1-L4: 0.9 Bone mineral density has: increased 11.5% since study of: 06.10.2021 Bone mineral density about the R hip (g/cm2): 0.830 Bone mineral density about the L hip (g/cm2): 0.862 T Score values are as follows: -----R Neck: -2.0 -----L Neck: -1.6 -----R Total: -1.4 -----L Total: -1.2 Z Score values are as follows: -----R Neck: -0.1 -----L Neck: 0.3 -----R Total: 0.3 -----L Total: 0.6 Bone mineral density has: decreased -1.7 % since study of: 12..2020 FRAX%s: The graph provided illustrates a 20.3% chance for a major osteoporotic fx and a 6.0% chance f or the hips probability for fx in 10 years time. IMPRESSION: Osteopenia (T Score between -2.5 and -1). There is slightly increased risk of fracture and the patient may be considered for treatment. Re-Screen 2-5 years. NOTE: T-SCORE=SD OF THE YOUNG ADULT MEAN.
--- NOTE | 2023-07-14 08:13 | MM ---
Reason for Exam: Screening (asymptomatic). Last mammogram was performed 2 year(s) and 10 month(s) ago. Patient History: Menarche at age 11. First Full-Term at age 17. Postmenopausal. Other cancer, age 66. Estrogen for 1 year, 8 months. Risk Values: Elza 5 year model risk: 1.3%. NCI Lifetime model risk: 2.8%. Prior Study Comparison: 09/03/2016 Bilateral Screening Mammogram, [facility]. 07/22/2018 Bilateral Screening Mammogram, [facility]. 08/14/2020 Bilateral Diagnostic Mammogram, [facility]. Tissue Density: The breast tissue is heterogeneously dense. This may lower the sensitivity of mammography. Findings: Analyzed By CAD. There is no suspicious group of microcalcifications or new suspicious mass in either breast. Overall Assessment: Negative, BI-RAD 1 Management: Screening Mammogram of both breasts in 1 year. . Patient should continue monthly self-breast exams. A clinical breast exam by your physician is recommended on an annual basis. This exam should not preclude additional follow-up of suspicious palpable abnormalities. Note on Elza scores and lifetime risk: 1. A Elza score greater than 3% is considered moderate risk. If this is the case, consider specialist referral to assess eligibility for a risk reducing agent. 2. If overall lifetime risk for the development of breast cancer is 20% or higher, the patient may qualify for future screening with alternating mammogram and breast MRI. Electronically signed and approved by: Doug Morin M.D. Radiologis
== END | disposition home or self-care (01) ==
LOC: RADMAMWWP 10:10
PROVIDERS: ATTEND Internal Medicine Geriatric Medicine
DX: Z12.31 Encounter for screening mammogram for malignant neoplasm of breast (principal); M85.89 Other specified disorders of bone density and structure, multiple sites; M81.0 Age-related osteoporosis without current pathological fracture; Z78.0 Asymptomatic menopausal state
CPT/HCPCS: 77063; 77067; 77080

== ENCOUNTER 2023-09-17 09:03 | Emergency (ER) | payer MEDICARE, BC ==
[2023-09-17 09:20] VITALS: RESP 18; TEMP 98.1
--- NOTE | 2023-09-17 09:58 | ED ---
General Adult HPI - General Chief complaint: Neuro Symptoms/Deficit Stated complaint: Tingling in face and arms Time Seen by Provider: 09/17/23 09:20 Source: patient, RN notes reviewed, old records reviewed Mode of arrival: ambulatory Limitations: no limitations - History of Present Illness Initial comments: This is a 73-year-old female who presents to the emergency department with a past history of of a pacemaker high blood pressure and high cholesterol. Patient comes in because over the last 3 or so days she states she has had tingling in both of her arms tingling in her right side of her face as well as pain in both shoulders. Patient states she also has noticed some neck stiffness. Patient denies any actual numbness. Patient Nuys any weakness. Patient Nuys any slurred speech patient denies any blurred vision. Patient denies any facial droop. Patient has any chest pain difficulty breathing or shortness of breath. Patient denies any abdominal pain patient has nausea vomiting diarrhea. Patient denies any recent fever chills or cough - Related Data Home Medications Medication Instructions Recorded Confirmed Budesonide-Formot 160-4.5 Mcg 2 puff INHALATION RT-BID 04/04/14 01/26/22 [Symbicort 160-4.5 Mcg Inhaler] Omeprazole 20 mg PO BID 04/04/14 01/26/22 Sertraline [Zoloft] 100 mg PO DAILY 04/04/14 01/26/22 Levothyroxine Sodium [Synthroid] 88 mcg PO DAILY 11/17/14 01/26/22 Albuterol Sulfate [Proair Hfa] 1 - 2 puff INHALATION RT-QID PRN 12/27/14 01/26/22 Albuterol Nebulized [Ventolin 2.5 mg INHALATION RT-BID 02/16/18 01/26/22 Nebulized] Atorvastatin [Lipitor] 40 mg PO DAILY 02/16/18 01/26/22 Cephalexin [Keflex] 500 mg PO TID 05/25/19 01/26/22 Metoprolol Succinate [Toprol XL] 50 mg PO BID 05/25/19 01/26/22 Previous Rx's Medication Instructions Recorded Losartan [Cozaar] 12.5 mg PO DAILY #50 tab 02/23/18 Spironolactone [Aldactone] 12.5 mg PO DAILY #50 tablet 02/23/18 Cyclobenzaprine [Flexeril] 5 mg PO TID #15 tab 09/17/23 Allergies Allergy/AdvReac Type Severity Reaction Status Date / Time aspirin AdvReac BLEEDING Verified 09/17/23 09:09 ibuprofen AdvReac BLEEDING Verified 09/17/23 09:09 BLOOD THINNERS AdvReac BLEEDING Uncoded 09/17/23 09:09 Review of Systems ROS Statement: Those systems with pertinent positive or pertinent negative responses have been documented in the HPI. ROS Other: All systems not noted in ROS Statement are negative. Past Medical History Past Medical History: Asthma, Blood Disorder, CVA/TIA, GERD/Reflux, GI Bleed, Musculoskeletal Disorder, Thyroid Disorder Additional Past Medical History / Comment(s): SEE DR DOTSON H&P,Hereditary hemorrhagic telangiectasia, Iron deficiency anemia, TIAs per MRIs, GI bleeds, r estless leg syndrome. OSTEOPOROSIS. History of Any Multi-Drug Resistant Organisms: None Reported Past Surgical History: AICD, Orthopedic Surgery Additional Past Surgical History / Comment(s): acromioplasty excision distal cl avical rotator cuff repair R shoulder. PH study esophageal impendance function test, bilateral cataract, EGD, bone spurs sx in feet/hands, coiling of the pulmonary AV malformation Past Anesthesia/Blood Transfusion Reactions: No Reported Reaction Type of Cardiac Device: AICD Device Placement Date:: 02-22-18 Past Psychological History: Anxiety Smoking Status: Former smoker Past Alcohol Use History: None Reported Past Drug Use History: None Reported - Past Family History Mother Family Medical History: Cancer Additional Family Medical History / Comment(s): Mother is 92 yrs old. She has vision problem. Father Family Medical History: Coronary Artery Disease (CAD), Diabetes Mellitus Additional Family Medical History / Comment(s): Father at 66 yrs Sister(s) Family Medical History: Blood Disorder Additional Family Medical History / Comment(s): Hemorrhagic Telangiectasia General Exam - General Exam Comments Initial Comments: GENERAL: Patient is well-developed and well-nourished. Patient is nontoxic and well- hydrated and is in no acute distress. ENT: Neck is soft and supple. No significant lymphadenopathy is noted. Oropharynx is clear. Moist mucous membranes. Neck has full range of motion without eliciting any pain. EYES: The sclera were anicteric and conjunctiva were pink and moist. Extraocular movements were intact and pupils were equal round and reactive to light. Eyelids were unremarkable. PULMONARY: Unlabored respirations. Good breath sounds bilaterally. No audible rales rhonchi or wheezing was noted. CARDIOVASCULAR: There is a regular rate and rhythm without any murmurs gallops or rubs. ABDOMEN: Soft and nontender with normal bowel sounds. SKIN: Skin is clear with no lesions or rashes and otherwise unremarkable. NEUROLOGIC: Patient is alert and oriented x3. Cranial nerves II through XII are grossly intact. Motor and sensory are also intact. Normal speech, volume and content. Symmetrical smile. NIH is 0 MUSCULOSKELETAL: Normal extremities with adequate strength and full range of motion. No lower extremity swelling or edema. No calf tenderness. LYMPHATICS: No significant lymphadenopathy is noted PSYCHIATRIC: Normal psychiatric evaluation. Limitations: no limitations Course Vital Signs 09/17/23 09/17/23 09/17/23 09:06 09:43 10:34 Temperature 98.1 F Pulse Rate 73 69 67 Respiratory 18 18 18 Rate Blood Pressure 119/71 147/84 127/67 O2 Sat by Pulse 94 L 94 L 95 Oximetry Medical Decision Making - Medical Decision Making EKG is interpreted by myself. EKG shows a paced rhythm at 66 bpm ID interval is 139 QRS is 106 QT interval is 410 QTc is 423. EKG shows no ST segment elevation or depression Was pt. sent in by a medical professional or institution ([facility], [employer], urgent care, hospital, or assisted...) When possible be specific @ -No Did you speak to anyone other than the patient for history (EMS, parent, family, police, friend...)? What history was obtained from this source @ -No Did you review nursing and triage notes (agree or disagree)? Why? @ -I reviewed and agree with nursing and triage notes Were old charts reviewed (outside hosp., previous admission, EMS record, old EKG, old radiological studies, urgent care reports/EKG's, assisted records)? Report findings @ -I reviewed patient's prior charts prior lab work. I compared to today's lab work and I saw no acute changes. Differential Diagnosis (chest pain, altered mental status, abdominal pain women, abdominal pain men, vaginal bleeding, weakness, fever, dyspnea, syncope, headache, dizziness, GI bleed, back pain, seizure, CVA, palpatations, mental health, musculoskeletal)? @ -CVA, TIA, spinal stenosis, paresthesias, this is not an all-inclusive list EKG interpreted by me (3pts min.). @ -As above X-rays interpreted by me (1pt min.). @ -None done CT interpreted by me (1pt min.). @ -CT of the brain shows no acute normality, CT of the C-spine shows no acute abnormality. U/S interpreted by me (1pt. min.). @ -None done What testing was considered but not performed or refused? (CT, X-rays, U/S, labs)? Why? @ -None What meds were considered but not given or refused? Why? @ -None Did you discuss the management of the patient with other professionals (prof carlos i.e. , PA, [employer], lab, RT, psych nurse, social service agency director, sanitary aide, teacher, safety officer, shoe parts caser)? Give summary @ -No Was smoking cessation discussed for >3mins.? @ -No Was critical care preformed (if so, how long)? @ -No Were there social determinants of health that impacted care today? How? (Homelessness, low income, unemployed, alcoholism, drug addiction, transportation, low edu. Level, literacy, decrease access to med. care, skilled nursing, rehab)? @ -No Was there de-escalation of care discussed even if they declined (Discuss DNR or withdrawal of care, Hospice)? DNR status @ -No What co-morbidities impacted this encounter? (DM, HTN, Smoking, COPD, CAD, Cancer, CVA, ARF, Chemo, Hep., AIDS, mental health diagnosis, sleep apnea, morbid obesity)? @ -None Was patient admitted / discharged? Hospital course, mention meds given and route, prescriptions, significant lab abnormalities, going to OR and other pertinent info. @ -I went back into the room to reevaluate the patient and she still was having a little tingling in both of her arms but stated that it felt much more sore in her neck and she believes it is related to her neck stiffness. Undiagnosed new problem with uncertain prognosis? @ -No Drug Therapy requiring intensive monitoring for toxicity (Heparin, Nitro, Insulin, Cardizem)? @ -No Were any procedures done? @ -No Diagnosis/symptom? @ -Paresthesias Acute, or Chronic, or Acute on Chronic? @ -Acute Uncomplicated (without systemic symptoms) or Complicated (systemic symptoms)? @ -Complicated Side effects of treatment? @ -No Exacerbation, Progression, or Severe Exacerbation? @ -No Poses a threat to life or bodily function? How? (Chest pain, [place], ND, pneumonia, PE, COPD, DKA, ARF, appy, cholecystitis, CVA, Diverticulitis, Homicidal, Suicidal, threat to staff... and all critical care pts) @ -No Diagnosis/symptom? @ -Cervical strain Acute, or Chronic, or Acute on Chronic? @ -Acute Uncomplicated (without systemic symptoms) or Complicated (systemic symptoms)? @ -Uncomplicated Side effects of treatment? @ -None Exacerbation, Progression, or Severe Exacerbation] @ -No Poses a threat to life or bodily function? @ -No - Lab Data Result diagrams: 09/17/23 09:56 09/17/23 09:56 Lab Results 09/17/23 09/17/23 09/17/23 Range/Units 09:56 09:56 09:56 WBC 6.4 (3.8-10.6) k/uL RBC 4.32 (3.80-5.40) m/uL Hgb 13.3 (11.4-16.0) gm/dL Hct 41.1 (34.0-46.0) % MCV 95.0 (80.0-100.0) fL MCH 30.8 (25.0-35.0) pg MCHC 32.4 (31.0-37.0) g/dL RDW 12.6 (11.5-15.5) % Plt Count 238 (150-450) k/uL MPV 9.7 Neutrophils % 70 % Lymphocytes % 18 % Monocytes % 6 % Eosinophils % 3 % Basophils % 1 % Neutrophils # 4.5 (1.3-7.7) k/uL Lymphocytes # 1.2 (1.0-4.8) k/uL Monocytes # 0.4 (0-1.0) k/uL Eosinophils # 0.2 (0-0.7) k/uL Basophils # 0.1 (0-0.2) k/uL Sodium 138 (137-145) mmol/L Potassium 4.3 (3.5-5.1) mmol/L Chloride 106 (98-107) mmol/L Carbon Dioxide 21 L (22-30) mmol/L Anion Gap 11 mmol/L BUN 17 (7-17) mg/dL Creatinine 0.62 (0.52-1.04) mg/dL Est GFR (CKD-EPI)AfAm >90 (>60 ml/min/1.73 sqM) Est GFR (CKD-EPI)NonAf 89 (>60 ml/min/1.73 sqM) Glucose 114 H (74-99) mg/dL Calcium 9.3 (8.4-10.2) mg/dL Magnesium 1.8 (1.6-2.3) mg/dL Total Bilirubin 0.7 (0.2-1.3) mg/dL AST 33 (14-36) U/L ALT 31 (4-34) U/L Alkaline Phosphatase 107 (38-126) U/L Troponin I (0.000-0.034) ng/mL Total Protein 6.9 (6.3-8.2) g/dL Albumin 3.8 (3.5-5.0) g/dL Urine Color Colorless Urine Appearance Clear (Clear) Urine pH 6.5 (5.0-8.0) Ur Specific [place] 1.008 (1.001-1.035) Urine Protein Negative (Negative) Urine Glucose (UA) Negative (Negative) Urine Ketones Negative (Negative) Urine Blood Negative (Negative) Urine Nitrite Negative (Negative) Urine Bilirubin Negative (Negative) Urine Urobilinogen <2.0 (<2.0) mg/dL Ur Leukocyte Esterase Negative (Negative) 09/17/23 Range/Units 09:56 WBC (3.8-10.6) k/uL RBC (3.80-5.40) m/uL Hgb (11.4-16.0) gm/dL Hct (34.0-46.0) % MCV (80.0-100.0) fL MCH (25.0-35.0) pg MCHC (31.0-37.0) g/dL RDW (11.5-15.5) % Plt Count (150-450) k/uL MPV Neutrophils % % Lymphocytes % % Monocytes % % Eosinophils % % Basophils % % Neutrophils # (1.3-7.7) k/uL Lymphocytes # (1.0-4.8) k/uL Monocytes # (0-1.0) k/uL Eosinophils # (0-0.7) k/uL Basophils # (0-0.2) k/uL Sodium (137-145) mmol/L Potassium (3.5-5.1) mmol/L Chloride (98-107) mmol/L Carbon Dioxide (22-30) mmol/L Anion Gap mmol/L BUN (7-17) mg/dL Creatinine (0.52-1.04) mg/dL Est GFR (CKD-EPI)AfAm (>60 ml/min/1.73 sqM) Est GFR (CKD-EPI)NonAf (>60 ml/min/1.73 sqM) Glucose (74-99) mg/dL Calcium (8.4-10.2) mg/dL Magnesium (1.6-2.3) mg/dL Total Bilirubin (0.2-1.3) mg/dL AST (14-36) U/L ALT (4-34) U/L Alkaline Phosphatase (38-126) U/L Troponin I <0.012 (0.000-0.034) ng/mL Total Protein (6.3-8.2) g/dL Albumin (3.5-5.0) g/dL Urine Color Urine Appearance (Clear) Urine pH (5.0-8.0) Ur Specific [place] (1.001-1.035) Urine Protein (Negative) Urine Glucose (UA) (Negative) Urine Ketones (Negative) Urine Blood (Negative) Urine Nitrite (Negative) Urine Bilirubin (Negative) Urine Urobilinogen (<2.0) mg/dL Ur Leukocyte Esterase (Negative) Disposition Clinical Impression: Cervical strain, Paresthesias Disposition: HOME SELF-CARE Condition: Good Prescriptions: Cyclobenzaprine [Flexeril] 5 mg PO TID #15 tab Is patient prescribed a controlled substance at d/c from ED?: No Referrals: Shukri Barlow MD [Primary Care Provider] - 1-2 days Time of Disposition: 12:08
[2023-09-17 10:09] LABS: Appearance,Urine Clear (Clear); Basophils # (A) 0.1 k/uL (0-0.2); Basophils % (A) 1 %; Bilirubin,Urine Negative (Negative); Blood,Urine Negative (Negative); Color,Urine Colorless; Eosinophils # (A) 0.2 k/uL (0-0.7); Eosinophils % (A) 3 %; Glucose,Urine (UA) Negative (Negative); HCT 41.1 % (34.0-46.0); HGB 13.3 gm/dL (11.4-16.0); Ketones,Urine Negative (Negative); Leukocyte Esterase,Urine Negative (Negative); Lymphocytes # (A) 1.2 k/uL (1.0-4.8); Lymphocytes % (A) 18 %; MCH 30.8 pg (25.0-35.0); MCHC 32.4 g/dL (31.0-37.0); Mean Platelet Volume 9.7; Monocytes # (A) 0.4 k/uL (0-1.0); Monocytes % (A) 6 %; Neutrophils # (A) 4.5 k/uL (1.3-7.7); Neutrophils % (A) 70 %; Nitrite,Urine Negative (Negative); PH, Urine 6.5 (5.0-8.0); Platelet Count 238 k/uL (150-450); Protein,Urine Negative (Negative); RBC 4.32 m/uL (3.80-5.40); RDW 12.6 % (11.5-15.5); Specific Gravity,Urine 1.008 (1.001-1.035); Urobilinogen,Urine <2.0 mg/dL (<2.0); WBC 6.4 k/uL (3.8-10.6)
[2023-09-17 10:21] LABS: ALT 31 U/L (4-34); African American GFR (CKD) >90 (>60 ml/min/1.73 sqM); Albumin 3.8 g/dL (3.5-5.0); Anion Gap 11 mmol/L; Blood Urea Nitrogen 17 mg/dL (7-17); Calcium 9.3 mg/dL (8.4-10.2); Carbon Dioxide 21 mmol/L (22-30); Chloride 106 mmol/L (98-107); Glucose 114 mg/dL (74-99); Non-African American GFR(CKD) 89 (>60 ml/min/1.73 sqM); Sodium 138 mmol/L (137-145); Total Bilirubin 0.7 mg/dL (0.2-1.3); Total Protein 6.9 g/dL (6.3-8.2)
[2023-09-17 10:29] LABS: AST 33 U/L (14-36); Alkaline Phosphatase 107 U/L (38-126); Potassium 4.3 mmol/L (3.5-5.1)
[2023-09-17 10:30] LABS: Magnesium 1.8 mg/dL (1.6-2.3)
--- NOTE | 2023-09-17 10:48 | CT ---
EXAMINATION TYPE: CT brain cspine wo con DATE OF EXAM: 09/17/2023 COMPARISON: 05/25/2019 HISTORY: c/o tingling in face and arms CT DLP: 1434.7 mGycm, Automated exposure control for dose reduction was used. CONTRAST: Patient injected with 0 mL of Isovue 300. CT of the brain is performed utilizing 3 mm thick sections through the posterior fossa and 3 mm thick sections through the remaining calvarium. Study is performed within 24 hours of arrival to the hospital. No abnormal hyperdensity is present to suggest an acute intracranial hemorrhage. No mass lesion is evident. No acute infarcts are evident. There is some mild periventricular white matter hypodensity, likely o n the basis of chronic white matter ischemic change. Findings are stable from comparison. Ventricles and sulci are appropriate for the patient age. Paranasal sinuses and mastoid air cells within the [id number] are clear. IMPRESSIONS: 1. No acute intracranial process. Follow-up MRI can be performed as clinically indicated. 2. Some mild chronic appearing white matter ischemic changes present, stable from comparison CT cervical spine. COMPARISON: None CT of the cervical spine is performed in the axial plane at 2 mm thick sections. Reconstructed image s in the coronal, and sagittal plane are reviewed on the computer. No acute fractures are evident. Vertebral body alignment is normal. There is mild degenerative disc changes throughout the cervical spine greatest at the C5-6 level. Vertebral body heights are preserved. No spinal canal stenosis is evident. Uncovertebral joint hypertrophy and facet hypertrophy is present on the left at C3-4 with severe left foraminal stenosis. Bilateral uncovertebral joint hypertrophy is present at C5-6 level with moderate foraminal stenosis. IMPRESSION: 1. Degenerative changes. No acute osseous abnormality evident.
[2023-09-17 12:54] VITALS: BP 122/84; PULSE 62
== END 2023-09-17 12:23 | disposition home or self-care (01) ==
LOC: EC 09:03
DX: S16.1XXA Strain of muscle, fascia and tendon at neck level, initial encounter (principal); M48.02 Spinal stenosis, cervical region; Z87.891 Personal history of nicotine dependence; Z88.6 Allergy status to analgesic agent; Z88.8 Allergy status to other drugs, medicaments and biological substances; X58.XXXA Exposure to other specified factors, initial encounter
CPT/HCPCS: 36415; 70450; 72125; 80053; 81003; 83735; 84484; 85025; 93005; 99285